=== PATIENT | male | born 1945 | race Caucasian/White ===

== ENCOUNTER → 2017-05-11 12:33 | Outpatient (CLI) | payer MEDICARE, OTHER, SELFPAY ==
[2017-05-11 14:24] LABS: Creatinine, Serum 1.09 mg/dL (0.70-1.30); EST Glomerular Filtration Rate 71 mL/min (>60); Est Glom Filt Rate - Afr Amer 86 mL/min (>60)
== END ==
PROVIDERS: Family Provider Family Medicine; PCP Family Medicine; Visit Provider Orthopaedic Surgery
DX: M51.37 Other intervertebral disc degeneration, lumbosacral region (principal); N19 Unspecified kidney failure
CPT/HCPCS: 36415; 82565

== ENCOUNTER → 2018-03-24 13:15 | Outpatient (CLI) | payer MEDICARE, OTHER, SELFPAY ==
[2018-03-24 16:22] LABS: Absolute Lymphocyte Count 2.11 X10^3/ul (0.83-4.51); Absolute Neutrophil Count 3.2 X10^3/uL (2.0-7.7); Basophil# 0.06 X10^3/uL; Eosinophil# 0.14 X10^3/uL; Eosinophils% 2.3 % (0-5); Hematocrit 43.2 % (40-54); Hemoglobin 13.9 g/dl (13.0-16.5); Lymphocyte # 2.11 X10^3/ul (4.0); Lymphocyte % 34.6 % (19-41); Mean Corp Hgb Conc 32.2 g/gl (32-36); Mean Corpuscular Hgb 32.3 pg (27.0-32.0); Mean Corpuscular Volume 100.2 fL (80-94); Mean Platelet Vol. 10.4 fl (6.2-12.0); Monocyte# 0.55 X10^3/uL; Neutrophil # 3.22 X10^3/uL (2.7-7.7); Neutrophil % 52.9 % (47-70); Platelet Count 241 K/mm3 (150-450); RBC Distribution Width CV 12.5 % (11.6-14.6); RBC Distribution Width SD 46.1 fl (35.1-43.9); Red Blood Count 4.31 M/mm3 (4.6-6.2); White Blood Count 6.1 K/mm3 (4.4-11.0)
[2018-03-24 16:26] LABS: POSITIVE COUNT NO; POSITIVE DIFFERENTIAL NO; POSITIVE MORPHOLOGY NO
[2018-03-24 16:41] LABS: ALB/GLOB Ratio 1.1 RATIO (0.9-2.4); AST(SGOT) 26 U/L (15-37); Alanine Aminotransfer ALT/SGPT 43 U/L (16-61); Albumin, Serum 4.1 g/dL (3.2-5.0); Alkaline Phosphatase 107 U/L (45-117); Anion Gap 9 (5-15); BUN 16 mg/dL (7-18); BUN/Creat Ratio 15.5 RATIO (10-20); Calcium,Total 8.9 mg/dL (8.5-10.1); Chloride 105 mmol/L (98-107); Creatinine, Serum 1.03 mg/dL (0.70-1.30); EST Glomerular Filtration Rate 76 mL/min (>60); Est Glom Filt Rate - Afr Amer 91 mL/min (>60); Globulin 3.7 g/dL (2.2-4.2); Glucose 109 mg/dL (74-106); Potassium 4.3 mmol/L (3.5-5.1); Protein, Total 7.8 g/dL (6.4-8.2); Sodium Level 140 mmol/L (136-145); T4 Free Direct 0.98 ng/dL (0.76-1.46); Thyroid Stim Hormone (TSH) 1.59 uIU/mL (0.358-3.74)
[2018-03-24 18:47] LABS: Vitamin B12 669 pg/mL (211-911)
--- OUTSIDE RECORDS SUMMARY | 2018-05-29 03:13 | XMS RPT_ITS ---
:1945 Author Organization OHIP Care Team Providers Name Role Phone Wilfred Ferrell Attending Unavailable Wilfred Ferrell Primary Care Unavailable Primit[facility] [place] Attending Unavailable Wilfred Ferrell Primary Care Unavailable PROBLEMS PROBLEMS DATE TYPE CONDITION / CODE ATTENDING STATUS SOURCE 03/24/2018 Unknown G62.9 - Wilfred Ferrell Active [facility] Polyneuropathy, Community unspecified / Hospital G62.9(ICD-10) Repository 03/24/2018 Unknown I10 - Essential Wilfred Ferrell (primary) Community hypertension / Hospital I10(ICD-10) Repository 03/24/2018 Unknown E78.5 - Wilfred Ferrell Active [facility] Hyperlipidemia, Community unspecified / Hospital E78.5(ICD-10) Repository 05/11/2017 Unknown 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, Hospital lumbosacral region / Repository M51.37(ICD-10) 05/11/2017 Unknown N19 - Unspecified Primitivo Kirkland Active [place] kidney failure / Community N19(ICD-10) Hospital Repository PROCEDURES PROCEDURES No Procedure Records FoundRESULTS RESULTS CBC W/DIFF, AUTOMATED Collected: 03/24/2018 Status: F Source: [facility] TYPE CODE TESTS RESULT OUT OF RANGE REFERENCE UNITS LAB L100.1000 4.4-11.0 K/mm3 Normal WBC 6.1 LAB L100.1200 4.6-6.2 M/mm3 Low RBC 4.31 LAB L100.1300 13.0-16.5 g/dl Normal HGB 13.9 LAB L100.1400 40-54 % Normal HCT 43.2 LAB L100.1500 80-94 fL High MCV 100.2 LAB L100.1600 27.0-32.0 pg High MCH 32.3 LAB L100.1700 32-36 g/gl Normal MCHC 32.2 LAB L100.1810 11.6-14.6 % Normal RDW CV 12.5 LAB L100.1820 35.1-43.9 fl High RDW SD 46.1 LAB L100.1900 150-450 K/mm3 Normal PLT 241 LAB L100.2000 6.2-12.0 fl Normal MPV 10.4 LAB L100.2100 47-70 % Normal NEUT% 52.9 LAB L100.2200 19-41 % Normal LY% 34.6 LAB L100.2300 0-10 % Normal MONO% 9.0 LAB L100.2400 0-5 % Normal EO% 2.3 LAB L100.2500 0-1 % Normal BASO% 1.0 LAB L100.2550 0.0-0.9 % Normal IM GRAN % 0.200 Result Comment: IG% - Immature Granulocytes (promyelocytes, myelocytes and metamyelocytes) > 1% indicates that a LEFT SHIFT is Present. LAB L100.2620 2.0-7.7 X10 3/uL Normal Absolute Neut 3.2 LAB L100.2720 0.83-4.51 X10 3/ul Normal Absolute Lymph 2.11 Performed By: #### L100.0100 #### [facility] [address] [place], [place], [address] COMPREHENSIVE METABOLIC Collected: 03/24/2018 Status: F Source: [facility] AMBROCIO 1:17 PM [facility] REPOSITORY TYPE CODE TESTS RESULT OUT OF RANGE REFERENCE UNITS LAB L501.0100 74-106 mg/dL High GLU 109 Result Comment: Fasting Glucose result from 100 to 125 mg/dL suggests IMPAIRED HOMEOSTASIS per A.D.A. criteria. Please note revised GLUCOSE reference range effective 2017. LAB L501.1000 7-18 mg/dL Normal BUN 16 LAB L501.1100 0.70-1.30 mg/dL Normal CREAT,SERUM 1.03 Result Comment: The validity of the calculated GFR AND GFRAA in patients over 70 years has not been determined. Clinical correlation is essential. LAB L501.1110 >60 mL/min Normal EST GFR 76 Result Comment: Non- GFR Calc LAB L501.1115 >60 mL/min Normal EST GFR - AA 91 Result Comment: GFR Calc LAB L501.1300 10-20 RATIO Normal BUN/CRE 15.5 LAB L501.1500 6.4-8.2 g/dL T Normal PROT 7.8 LAB L501.1800 3.2-5.0 g/dL Normal ALB 4.1 LAB L501.1950 2.2-4.2 g/dL Normal GLOB 3.7 LAB L501.2000 0.9-2.4 RATIO Normal A/G 1.1 LAB L501.2200 8.5-10.1 mg/dL CA Normal 8.9 LAB L501.4100 15-37 U/L Normal AST 26 LAB L501.4305 45-117 U/L Normal ALK P 107 LAB L501.4405 16-61 U/L Normal ALT 43 LAB L501.4600 0.20-1.00 mg/dL T Normal BILI 0.50 LAB L501.5300 136-145 mmol/L NA Normal 140 LAB L501.5600 3.5-5.1 mmol/L K Normal 4.3 LAB L501.5900 98-107 mmol/L CL Normal 105 LAB L501.6100 21.0-32.0 mmol/L Normal CO2 26.0 LAB L501.6200 5-15 Normal GAP 9 Performed By: #### L500.4050, L501.9520, L506.0400 #### [facility] [address] [place], [address] THYROID STIM HORMONE Collected: 03/24/2018 Status: F Source: [facility] (TSH) 1:17 PM [facility] REPOSITORY TYPE CODE TESTS RESULT OUT OF RANGE REFERENCE UNITS LAB L501.9520 0.358-3.74 uIU/mL Normal TSH 1.59 Performed By: #### L500.4050, L501.9520, L506.0400 #### [facility] [address] [place], [address] T4 FREE DIRECT Collected: 03/24/2018 Status: F Source: [facility] 1:17 PM [facility] REPOSITORY TYPE CODE TESTS RESULT OUT OF RANGE REFERENCE UNITS LAB L506.0400 0.76-1.46 ng/dL Normal T4 FREE 0.98 DIRECT Performed By: #### L500.4050, L501.9520, L506.0400 #### [facility] [address] [place], [address] VITAMIN B12 Collected: 03/24/2018 Status: F Source: [facility] 1:17 PM [facility] REPOSITORY TYPE CODE TESTS RESULT OUT OF RANGE REFERENCE UNITS LAB L503.0105 211-911 pg/mL Normal Vitamin B12 669 Performed By: #### L503.0105 #### [facility] [address] [place], [address] SERUM CREATININE AND Collected: 05/11/2017 Status: F Source: [facility] GFR 12:42 PM [facility] REPOSITORY TYPE CODE TESTS RESULT OUT OF RANGE REFERENCE UNITS LAB L501.1100 0.70-1.30 mg/dL Normal 1.09 CREAT,SERUM Result Comment: The validity of the calculated GFR AND GFRAA in patients over 70 years has not been determined. Clinical correlation is essential. LAB L501.1110 >60 mL/min Normal EST GFR 71 Result Comment: Non- GFR Calc LAB L501.1115 >60 mL/min Normal EST GFR - AA 86 Result Comment: GFR Calc Performed By: #### L501.1105 #### [facility] [address] [place], [address] ALLERGIES ALLERGIES DATE TYPE / CODE NAME / CODE REACTION SEVERITY SOURCE 10/24/2015 Drug codeine/F006 Nausea Unknown [facility] Allergy/4160 [id number]([facility] [address](SNOMED M) Repository CT) ENCOUNTERS ENCOUNTERS ADMIT/DISCHARGE ACCOUNT ADMITTING ENCOUNTER LOCATION SOURCE NUMBER CLASS 03/24/2018 [id number] Ambulatory [place] [facility] 1 [facility] ing:BFHLAB Repository 05/11/2017 [id number] Ambulatory [place] [place] 5 [facility] ing:MTLAB Repository PAYERS PAYERS ENCOUNTER GUARANTOR PAYER SUBSCRIBER SOURCE 03/24/2018 PRIMITIVO Forde Primary PRIMITIVO Maurer [id number] Insurance:MEDICARE SHEPPARDDOB: [id number] [address]: Number: Repository [id number] (HP) Date:2018-03-24 03/24/2018 Secondary PRIMITIVO Maurer Insurance:WPS SHEPPARDDOB: [facility] [id number] Hospital Number: Repository [id number] Date:7556-80-79[address] [address]AG: 03/24/2018 Tertiary NOT GIVENUNK [facility] Insurance:SELF PAY [facility] Number: Effective Repository Date:2018-03-24 05/11/2017 Primitivo Forde Primary Primitivo Walshoster [id number] Insurance:MEDICARE SheppardDOB: [facility] [id number] Number: Repository [id number]: 330 [id number] [phone] () Date:2017-05-11 05/11/2017 Secondary Primitivo Maurer Insurance:WPS SheppardDOB: [facility] [id number] Hospital Number: Repository [id number] Date:1118-14-59LJ [address] [place] [address]CU: 05/11/2017 Tertiary NOT GIVENUNK [facility] Insurance:SELF PAY [facility] Number: Effective Repository Date:2017-05-11
== END ==
PROVIDERS: Family Provider Family Medicine; PCP Family Medicine; Visit Provider Family Medicine
DX: I10 Essential (primary) hypertension (principal); G62.9 Polyneuropathy, unspecified; E78.5 Hyperlipidemia, unspecified
CPT/HCPCS: 36415; 80053; 82607; 84439; 84443; 85025

== ENCOUNTER → 2019-01-26 11:12 | Outpatient (CLI) | payer MEDICARE, OTHER, SELFPAY ==
--- NOTE | 2019-01-26 11:18 | RAD_ITS ---
STUDY: X-RAY - CERVICAL SPINE REASON FOR EXAM: Male, 73 years old. Neck pain. TECHNIQUE: 7 view(s) of the cervical spine were obtained. COMPARISON: None FINDINGS: Normal anterior atlantoaxial articulation. Normal odontoid process. Normal cervical lordosis. There is multi-level endplate spondylosis. Normal disc space heights. There is multilevel facet hypertrophy. There is narrowing of the left C3-C4 neuroforamina. The soft tissue structures are unremarkable. RAD/Cerv Spine Obl/Flex/Ext Comp IMPRESSION: Degenerative changes. Electronically Signed: Kiki Barnes MD at 16:53 EST Tel , Service support ,
== END ==
PROVIDERS: Family Provider Family Medicine; PCP Family Medicine; Referring Provider Nurse Practitioner Family; Visit Provider Nurse Practitioner Family
DX: M54.2 Cervicalgia (principal)
CPT/HCPCS: 72052

== ENCOUNTER → 2019-03-16 12:01 | Outpatient (CLI) | payer MEDICARE, OTHER, SELFPAY ==
[2019-03-16 16:19] LABS: Absolute Lymphocyte Count 1.86 X10^3/uL (0.83-4.51); Absolute Neutrophil Count 7.3 X10^3/uL (2.0-7.7); Basophil# 0.04 X10^3/uL; Basophil% 0.4 % (0-1); Eosinophil# 0.05 X10^3/uL; Eosinophils% 0.5 % (0-5); Hematocrit 46.7 % (40-54); Hemoglobin 14.9 g/dL (13.0-16.5); Lymphocyte # 1.86 X10^3/ul (4.0); Lymphocyte % 18.3 % (19-41); Mean Corp Hgb Conc 31.9 g/dL (32-36); Mean Corpuscular Hgb 31.8 pg (27.0-32.0); Mean Corpuscular Volume 99.6 fL (80-94); Mean Platelet Vol. 9.9 fl (6.2-12.0); Monocyte# 0.94 X10^3/uL; Monocyte% 9.2 % (0-10); NRBC Flagged by Analyzer 0 % (0-5); Neutrophil # 7.25 X10^3/uL (2.7-7.7); Neutrophil % 71.3 % (47-70); Platelet Count 217 K/mm3 (150-450); RBC Distribution Width CV 13.2 % (11.6-14.6); RBC Distribution Width SD 48.5 fl (35.1-43.9); Red Blood Count 4.69 M/mm3 (4.6-6.2); White Blood Count 10.2 K/mm3 (4.4-11.0)
[2019-03-16 16:22] LABS: Hemoglobin A1c 6.1 % (4.2-6.3)
[2019-03-16 16:28] LABS: ALB/GLOB Ratio 0.9 RATIO (0.9-2.4); AST(SGOT) 30 U/L (15-37); Alanine Aminotransfer ALT/SGPT 46 U/L (16-61); Albumin, Serum 3.7 g/dL (3.2-5.0); Alkaline Phosphatase 114 U/L (45-117); Anion Gap 4 (5-15); BUN 19 mg/dL (7-18); BUN/Creat Ratio 14.5 RATIO (10-20); Calcium,Total 8.8 mg/dL (8.5-10.1); Chloride 105 mmol/L (98-107); Creatinine, Serum 1.31 mg/dL (0.70-1.30); EST Glomerular Filtration Rate 57 mL/min (>60); Est Glom Filt Rate - Afr Amer 69 mL/min (>60); Globulin 4.3 g/dL (2.2-4.2); Glucose 159 mg/dL (74-106); PSA,Total - Annual Screen 0.43 ng/mL (0.00-4.00); Potassium 4.4 mmol/L (3.5-5.1); Sodium Level 135 mmol/L (136-145); Thyroid Stim Hormone (TSH) 1.27 uIU/mL (0.358-3.74)
== END ==
PROVIDERS: Family Provider Family Medicine; PCP Family Medicine; Visit Provider Family Medicine
DX: R63.4 Abnormal weight loss (principal); I10 Essential (primary) hypertension; R73.01 Impaired fasting glucose; Z12.5 Encounter for screening for malignant neoplasm of prostate
CPT/HCPCS: 36415; 80053; 83036; 84153; 84439; 84443; 85025; G0103

== ENCOUNTER → 2019-03-28 13:14 | Outpatient (CLI) | payer MEDICARE, OTHER, SELFPAY ==
--- NOTE | 2019-03-28 13:18 | CT_ITS ---
STUDY: CT CHEST WITHOUT CONTRAST REASON FOR EXAM: Male, 73 years old. NODULE FOLLOW UP RADIATION DOSAGE (If Supplied By Facility): CTDIvol = ( 16.83 ) mGy, DLP = ( 602.84 ) mGycm TECHNIQUE: Transaxial imaging was performed without the administration of intravenous contrast material. Individualized dose optimization techniques were used for this CT. COMPARISON: 10/20/2013 FINDINGS: Mild bilateral apical scarring. No noncalcified nodule or mass. Some right-sided pleural calcifications. Normal heart and pericardium. There are calcifications of the coronary arteries. Normal mediastinum. Normal hilar regions. Normal unenhanced pulmonary arteries. Normal aorta arch and descending thoracic aorta. Normal osseous structures. There is no demonstrated abnormality of the visualized upper abdomen. CT/Chest without Contrast IMPRESSION: No pulmonary nodule or mass. Right-sided pleural calcification. Electronically Signed: Tyler Vieira MD at 16:23 EST Tel , Service support ,
== END ==
PROVIDERS: Family Provider Family Medicine; PCP Family Medicine; Referring Provider Family Medicine; Visit Provider Family Medicine
DX: R63.4 Abnormal weight loss (principal); I10 Essential (primary) hypertension; R91.1 Solitary pulmonary nodule
CPT/HCPCS: 71250

== ENCOUNTER 2019-09-18 19:55 | Emergency (ER) | payer MEDICARE, OTHER, SELFPAY ==
[2019-09-18 19:57] VITALS: BP 119/74; PULSE 82; RESP 16; TEMP 36.9; O2SAT 95; BMI 32.3
[2019-09-18] MEDS: HYDROmorphone 1 MG/ML Syringe IV (20:48)
[2019-09-18] MEDS: Ondansetron 4 MG/2 ML Vial IV (20:48)
[2019-09-18] MEDS: diazePAM 2 MG Tablet 4 MG PO (20:51)
--- NOTE | 2019-09-18 21:48 | ED.VISSUMM ---
- ER Visit Summary Date of Service: 09/18/19 Chief Complaint: [Back pain] History of Present Illness: The patient is a 74 M [presents to the emergency department complaint of back pain that has had for about 2 to 3 days. Patient states that he was working on a deck applying some lattice to it and twisted awkwardly over the weekend. He had some mild discomfort for which she took Advil but really get much relief. Today he sat down and when he try to stand up had more severe pain and had a hard time standing and walking so he called EMS to bring him in. Patient has history of chronic back pain. He sees pain management and gets injections in his back about once a year. Patient actually saw his painter foreman nurse to try to make an appointment to get in and get injections today. He denies any change in bowel or bladder function. He denies weakness in extremities. Patient states that intermittently when the pain severely will shoot down his left leg to about the knee. Has had prior back surgery had a decompression of L4-5 2004.] Physical Examination: [HEENT-PERRLA, EOMI. Cranial nerves II through XII grossly intact. TMs clear. Mucous membranes moist. No adenopathy. Cardiovascular-regular rate and rhythm without murmur or ectopy Lungs-clear to auscultation, chest wall stable without crepitus or subcu emphysema Abdomen-normoactive bowel sounds, soft, nontender, no rebound or rigidity, no peritoneal signs. Back exam-patient has diffuse tenderness over lumbar spine and lumbar paraspinal musculature. Patient has a positive straight leg raise with the left leg at about 20 degrees. Deep tendon reflexes are plus 1 out of 4 bilaterally at the patella and Achilles. Patient has normal 5 extension bilaterally. Patient has normal sensation to light touch. Extremities-intact ?4, normal range of motion, normal pulses, atraumatic] Test Results: [None indicated] Emergency Department Course and Treatment: [Patient received 100 mcg of fentanyl by EMS prior to arrival. He continued to complain of severe pain. He was given Dilaudid 1 mg IV and Valium 4 mg p.o. After treatment he was observed in the department and he felt significantly improved. Patient was able to stand and walk and at this point is requesting to be discharged to home.] Treatment Plan: [Patient will be given a prescription for Alkol and Valium. Patient advised to follow-up with his painter foreman. Advised to return if worsening pain, weakness extremities, change in bowel or bladder function, or condition should worsen anyway.] Disposition: [Discharged home in stable condition] Impression: [Lumbar strain] This note was generated with [employer] dictation software. It may contain incorrect words, spelling, and punctuation that were not noted in review of the chart prior to signing ED Disposition - Plan for ED Patient: Referrals: Wilfred Ferrell MD [Primary Care Provider] -
[2019-09-18 21:50] VITALS: BP 118/72; PULSE 80; RESP 16; O2SAT 98
--- NOTE | 2019-09-18 21:51 | ED.DEP ---
ED Disposition - Plan for ED Patient: Instructions: ED LUMBAR SPRAIN/STRAIN Prescriptions: Hydrocodone Bitart/Apap 5-325 [[place] 5MG-325MG] 1 tab PO Q4H PRN PRN 2 Days #20 tab PRN Reason: Pain Prescription Printed Diazepam [Valium] 5 mg PO Q8 PRN #10 tab PRN Reason: Muscle Spasm Prescription Printed Referrals: Wilfred Ferrell MD [Primary Care Provider] - 3-5 Days Additional Instructions: See your pain management doctor
[2019-09-18] MEDS: HYDROmorphone 1 MG/ML Syringe IM (22:30)
== END 2019-09-18 22:44 | disposition home or self-care (01) ==
PROVIDERS: Emergency Provider Emergency Medicine; PCP Family Medicine
DX: S39.012A Strain of muscle, fascia and tendon of lower back, initial encounter (principal); M79.605 Pain in left leg; X50.1XXA Overexertion from prolonged static or awkward postures, initial encounter; Y93.9 Activity, unspecified; Y92.9 Unspecified place or not applicable; Y99.9 Unspecified external cause status; M54.9 Dorsalgia, unspecified; G89.29 Other chronic pain; I25.10 Atherosclerotic heart disease of native coronary artery without angina pectoris; I10 Essential (primary) hypertension; Z72.0 Tobacco use; Z79.82 Long term (current) use of aspirin; Z79.899 Other long term (current) drug therapy
CPT/HCPCS: 96372; 96374; 96375; 99284; A4216; J2405

== ENCOUNTER → 2019-10-09 10:39 | Outpatient (CLI) | payer MEDICARE, OTHER, SELFPAY ==
[2019-09-18 19:57] VITALS: BMI 32.3
[2019-10-09 12:58] LABS: BUN 26 mg/dL (7-18); Creatinine, Serum 1.35 mg/dL (0.70-1.30); EST Glomerular Filtration Rate 55 mL/min (>60); Est Glom Filt Rate - Afr Amer 67 mL/min (>60)
== END ==
PROVIDERS: PCP Family Medicine; Referring Provider Nurse Practitioner Family; Visit Provider Nurse Practitioner Family
DX: Z01.812 Encounter for preprocedural laboratory examination (principal)
CPT/HCPCS: 36415; 82565; 84520

== ENCOUNTER → 2019-10-15 09:23 | Outpatient (CLI) | payer MEDICARE, OTHER, SELFPAY ==
[2019-09-18 19:57] VITALS: BMI 32.3
--- NOTE | 2019-10-15 09:39 | MRI_ITS ---
STUDY: MRI LUMBAR SPINE WITHOUT CONTRAST REASON FOR EXAM: Male, 74 years old. pain lumbar, left leg x 6 months, prev surgery 2003, now pain injections not helping TECHNIQUE: Standardized fat and water weighted pulse sequences were obtained in the sagittal and axial planes. COMPARISON: X-ray dated 04/27/2016 FINDINGS: Lumbar straightening. No significant scoliosis. Conus medullaris terminates normally at the L1 level. No acute fracture. No acute dislocation. No acute bone destruction. Small anterior osteophytes. Paraspinal muscle atrophy. Normal aorta. Normal retroperitoneum. Sacrum intact. T12-L1: Normal endplates. Shallow disc bulge. Normal bilateral facet joints. Normal central canal and bilateral lateral recesses. Normal bilateral intervertebral neural foramina. L1-2: Normal endplates. Disc bulge with mild central canal narrowing. Facet joint arthrosis. Normal bilateral lateral recesses. Normal bilateral intervertebral neural foramina. L2-3: Normal endplates. Disc bulge with mild/moderate central canal narrowing. Facet joint arthrosis. Lateral recess narrowing without impingement. Normal bilateral intervertebral neural foramina. L3-4: Mild endplate spondylosis. Mild disc desiccation. Facet joint arthrosis. Normal central canal and bilateral lateral recesses. Normal bilateral intervertebral neural foramina. L4-5: Moderate endplate spondylosis. Shallow disc bulge with annular fissure. Facet joint arthrosis. Minimal lateral recess narrowing. Normal central canal. Bilateral neural foraminal narrowing with contact of the right exiting nerve root. L5-S1: Moderate endplate spondylosis. Shallow disc bulge. Facet joint arthrosis. Normal central canal and bilateral lateral recesses. Bilateral neural foraminal narrowing with contact of the exiting nerve roots. Right hemilaminotomy. 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
== END ==
PROVIDERS: PCP Family Medicine; Referring Provider Anesthesiology Pain Medicine; Visit Provider Anesthesiology Pain Medicine
DX: Z01.812 Encounter for preprocedural laboratory examination (principal); M46.96 Unspecified inflammatory spondylopathy, lumbar region; M51.37 Other intervertebral disc degeneration, lumbosacral region; M96.1 Postlaminectomy syndrome, not elsewhere classified; M54.17 Radiculopathy, lumbosacral region; M47.817 Spondylosis without myelopathy or radiculopathy, lumbosacral region; M48.07 Spinal stenosis, lumbosacral region
CPT/HCPCS: 72148

== ENCOUNTER → 2020-02-08 14:05 | Outpatient (CLI) | payer MEDICARE, OTHER, SELFPAY ==
[2020-02-08 17:41] LABS: Absolute Lymphocyte Count 1.83 X10^3/uL (0.83-4.51); Absolute Neutrophil Count 2.9 X10^3/uL (2.0-7.7); Basophil# 0.04 X10^3/uL; Basophil% 0.7 % (0-1); Eosinophil# 0.13 X10^3/uL; Eosinophils% 2.4 % (0-5); Hematocrit 44.3 % (40-54); Hemoglobin 14.2 g/dL (13.0-16.5); Lymphocyte # 1.83 X10^3/ul (4.0); Lymphocyte % 33.9 % (19-41); Mean Corp Hgb Conc 32.1 g/dL (32-36); Mean Corpuscular Hgb 32.4 pg (27.0-32.0); Mean Corpuscular Volume 101.1 fL (80-94); Mean Platelet Vol. 10.4 fl (6.2-12.0); Monocyte# 0.49 X10^3/uL; Monocyte% 9.1 % (0-10); NRBC Flagged by Analyzer 0 % (0-5); Neutrophil % 53.7 % (47-70); Platelet Count 255 K/mm3 (150-450); RBC Distribution Width CV 11.6 % (11.6-14.6); RBC Distribution Width SD 43.7 fl (35.1-43.9); Red Blood Count 4.38 M/mm3 (4.6-6.2); White Blood Count 5.4 K/mm3 (4.4-11.0)
[2020-02-08 18:22] LABS: ALB/GLOB Ratio 1.1 RATIO (0.9-2.4); AST(SGOT) 25 U/L (15-37); Alanine Aminotransfer ALT/SGPT 44 U/L (16-61); Albumin, Serum 4.1 g/dL (3.2-5.0); Alkaline Phosphatase 116 U/L (45-117); Anion Gap 8 (5-15); BUN 18 mg/dL (7-18); BUN/Creat Ratio 16.1 RATIO (10-20); Calcium,Total 8.8 mg/dL (8.5-10.1); Chloride 107 mmol/L (98-107); Creatinine, Serum 1.12 mg/dL (0.70-1.30); EST Glomerular Filtration Rate 68 mL/min (>60); Est Glom Filt Rate - Afr Amer 83 mL/min (>60); Globulin 3.6 g/dL (2.2-4.2); Glucose 92 mg/dL (74-106); Potassium 4.3 mmol/L (3.5-5.1); Protein, Total 7.7 g/dL (6.4-8.2); Sodium Level 140 mmol/L (136-145); Thyroid Stim Hormone (TSH) 1.28 uIU/mL (0.358-3.74)
== END ==
PROVIDERS: PCP Family Medicine; Visit Provider Family Medicine
DX: I12.9 Hypertensive chronic kidney disease with stage 1 through stage 4 chronic kidney disease, or unspecified chronic kidney disease (principal); N18.30 Chronic kidney disease, stage 3 unspecified; E78.5 Hyperlipidemia, unspecified
CPT/HCPCS: 36415; 80053; 84443; 85025

== ENCOUNTER → 2020-08-18 13:54 | Outpatient (CLI) | payer MEDICARE, OTHER, SELFPAY ==
--- NOTE | 2020-08-18 14:01 | RAD_ITS ---
HISTORY: COUGH,SPUTUM,SOB EXAM: XR Chest 2 Views: COMPARISON: September 30, 2013 chest x-ray, and March 28, 2019 CT scan of the chest. FINDINGS: # of images incl. paperwork: 3 Right lower lung nodular disease is slightly more medial on today's study than on the previous study. Comparison to the chest CT from March 28 proves that this is a anterior pleural plaque. Lungs are clear. Heart is not enlarged. No acute osseous pathology perceived. Pulmonary vascularity is distinct. No effusions. RAD/Chest PA and Lateral IMPRESSION: No acute disease.. at 0700 Reported and signed by: Luis Alfredo Burr MD Electronically Signed: Luis Alfredo Burr MD at 6:59 EDT Tel , Service support ,
[2020-08-18 15:48] LABS: Absolute Neutrophil Count 3.6 X10^3/uL (2.0-7.7); Basophil# 0.06 X10^3/uL; Basophil% 0.9 % (0-1); Eosinophil# 0.14 X10^3/uL; Eosinophils% 2.2 % (0-5); Hematocrit 44.4 % (40-54); Hemoglobin 14.7 g/dL (13.0-16.5); Lymphocyte % 31.4 % (19-41); Mean Corp Hgb Conc 33.1 g/dL (32-36); Mean Corpuscular Hgb 32.8 pg (27.0-32.0); Mean Corpuscular Volume 99.1 fL (80-94); Mean Platelet Vol. 10.2 fl (6.2-12.0); Monocyte# 0.57 X10^3/uL; NRBC Flagged by Analyzer 0 % (0-5); Neutrophil # 3.57 X10^3/uL (2.7-7.7); Neutrophil % 56.2 % (47-70); Platelet Count 283 K/mm3 (150-450); RBC Distribution Width CV 12.6 % (11.6-14.6); RBC Distribution Width SD 46.1 fl (35.1-43.9); Red Blood Count 4.48 M/mm3 (4.6-6.2); White Blood Count 6.4 K/mm3 (4.4-11.0)
[2020-08-18 16:18] LABS: Hemoglobin A1c 5.8 % (3.8-5.6)
[2020-08-18 17:00] LABS: ALB/GLOB Ratio 1.2 RATIO (0.9-2.4); AST(SGOT) 33 U/L (15-37); Alanine Aminotransfer ALT/SGPT 36 U/L (16-61); Albumin, Serum 4.2 g/dL (3.2-5.0); Alkaline Phosphatase 113 U/L (45-117); Anion Gap 7 (5-15); BUN 18 mg/dL (7-18); Calcium,Total 9.4 mg/dL (8.5-10.1); Chloride 104 mmol/L (98-107); EST Glomerular Filtration Rate 63 mL/min (>60); Est Glom Filt Rate - Afr Amer 76 mL/min (>60); Globulin 3.5 g/dL (2.2-4.2); Glucose 105 mg/dL (74-106); Potassium 4.5 mmol/L (3.5-5.1); Protein, Total 7.7 g/dL (6.4-8.2); Sodium Level 138 mmol/L (136-145)
== END ==
PROVIDERS: PCP Family Medicine; Referring Provider Family Medicine; Visit Provider Family Medicine
DX: I10 Essential (primary) hypertension (principal); E78.5 Hyperlipidemia, unspecified; R73.01 Impaired fasting glucose; R06.00 Dyspnea, unspecified; Z72.0 Tobacco use
CPT/HCPCS: 36415; 71046; 80053; 83036; 84443; 85025

== ENCOUNTER → 2020-09-02 12:41 | Outpatient (CLI) | payer MEDICARE, OTHER, SELFPAY ==
[2020-09-02 12:12] VITALS: BMI 32.0
--- NOTE | 2020-09-02 12:48 | CT_ITS ---
STUDY: LOW DOSE CT LUNG CANCER SCREENING REASON FOR EXAM: Male, 75 years old. Lung cancer screening -- 20 pack year history; asymptomatic, current smoker RADIATION DOSAGE (If Supplied By Facility): CTDIvol = ( 3.18 ) mGy, DLP = ( 116.76 ) mGycm TECHNIQUE: No contrast was administered. Low dose technique was utilized (average mAS-38 and kVp 120). 1.25 mm axial source images with a slice interval of 1.25-mm were reconstructed in lung windows. 2.5 mm axial source images with a slice interval of 2.5-mm were reconstructed in lung windows. 5.0 mm axial source images with a slice interval of 5.0-mm were reconstructed in soft tissue windows. Nodule measured using lung windows on PACS and/or independent workstation with automated measurement of minimum and maximum diameter. Nodule measurement reported as average diameter rounded to the nearest whole number. Growth is defined as an increase ins size of greater than 1.5 mm. COMPARISON: Comparison is made with prior study dated 03/28/2019. NODULES: No suspicious nodules are seen. Emphysema: Stable scarring at the lung apices bilaterally. Stable calcified right sided pleural plaques. Endobronchial lesion: None Aorta: Mild atherosclerotic calcification of the aortic arch. Coronary arteries: Mild coronary artery calcification. Mediastinal nodes: Small mediastinal lymph nodes. Other chest and abdominal findings: CT/Low Dose CT Lung Screening IMPRESSION: Lung-RADS category 2 - Continue annual screening with LDCT in 12 months. IMPORTANT NOTES FOR USE: ACR Lung-RADS Version 1.1 Assessment Categories Release Date: 2018 Category: Coded 0-4 bases on nodule(s) with highest degree of suspicion. Negative screen is defined as categories 1 and 2; a positive screen is defined as categories 3 and 4. Category 3 and 4A nodules that are unchanged on interval CT should be coded as category 2, and individuals returned to screening in 12 months. Category 4X: Category 3 or 4 nodules with additional imaging findings that increase the suspicion of lung cancer, such as spiculation, GGN that doubles in size in 1 year, enlarged lymph notes, etc. Category Modifiers: S (significant finding unrelated to lung cancer) Electronically Signed: Art Manning MD at 13:32 EDT , Service support ,
== END ==
PROVIDERS: PCP Family Medicine; Referring Provider Nurse Practitioner Family; Visit Provider Nurse Practitioner Family
DX: Z12.2 Encounter for screening for malignant neoplasm of respiratory organs (principal); Z87.891 Personal history of nicotine dependence
CPT/HCPCS: 71271

== ENCOUNTER 2021-04-22 17:35 | Outpatient (CLI) | payer MEDICARE, OTHER, SELFPAY ==
--- NOTE | 2021-04-22 17:41 | CT_ITS ---
EXAM: CT NECK WITH INTRAVENOUS CONTRAST : 1945 CLINICAL INDICATION: RIGHT LYMPHADENOPATHY OF UNCERTAIN CAUSE TECHNIQUE: Helically acquired images were obtained of the neck with intravenous contrast. This CT exam was performed using one or more of the following dose reduction techniques: automated exposure control, adjustment of the mA and/or kV according to patient size, and/or use of iterative reconstruction technique. This report was created using [employer] report generation technology. CONTRAST: IV 100mL Isovue-300 COMPARISON: Chest CT March 28, 2019 FINDINGS: NASOPHARYNX: Unremarkable. SUPRAHYOID NECK: Unremarkable. Oropharynx, oral cavity, parapharyngeal space and retropharyngeal space are unremarkable. INFRAHYOID NECK: Unremarkable. The larynx, hypopharynx and supraglottis are unremarkable. SUBMANDIBULAR/PAROTID GLANDS: Unremarkable. Glands are normal in size. THYROID: Unremarkable. No enlarged or calcified nodules. BONES/JOINTS: No acute fracture. SOFT TISSUES: Unremarkable. VASCULATURE: No acute findings. LYMPH NODES: Unremarkable. No lymphadenopathy. LUNG APICES: Stable postinflammatory changes at the lung apices. Right apical bleb formation is stable. CT/Soft Tissue Neck WITH Contrast IMPRESSION: No evidence of cervical lymphadenopathy. Individualized dose optimization techniques were used for this CT. at 0817 Reported and signed by: Varinder Holt MD Electronically Signed: Varinder Holt MD at 8:15 EST Reading Location ID and State: [facility] [place] Tel , Service support ,
[2021-04-22 17:55] LABS: CREATININE FINGERSTICK 0.8 mg/dL (0.70-1.30); EGFR FINGERSTICK > 60.0000 mL/min (>60)
== END 2021-04-22 23:59 | disposition home or self-care (01) ==
LOC: CT 17:36
PROVIDERS: PCP Family Medicine; Visit Provider Family Medicine
DX: R59.0 Localized enlarged lymph nodes (principal)
CPT/HCPCS: 70491; Q9967

== ENCOUNTER 2021-05-20 12:16 | Outpatient (CLI) | payer MEDICARE, OTHER, SELFPAY ==
[2021-05-20 15:52] LABS: ALB/GLOB Ratio 1.1 RATIO (0.9-2.4); AST(SGOT) 32 U/L (15-37); Alanine Aminotransfer ALT/SGPT 68 U/L (16-61); Albumin, Serum 3.7 g/dL (3.2-5.0); Alkaline Phosphatase 91 U/L (45-117); Anion Gap 6 (5-15); BUN 21 mg/dL (7-18); BUN/Creat Ratio 19.8 RATIO (10-20); CPK Total, Creatine Kinase 32 U/L (39-308); CRP < 2.90 mg/L (0.0-3.0); Calcium,Total 8.6 mg/dL (8.5-10.1); Chloride 105 mmol/L (98-107); Creatinine, Serum 1.06 mg/dL (0.70-1.30); EST Glomerular Filtration Rate 72 mL/min (>60); Est Glom Filt Rate - Afr Amer 88 mL/min (>60); Globulin 3.3 g/dL (2.2-4.2); Glucose 94 mg/dL (74-106); Potassium 3.7 mmol/L (3.5-5.1); Rheumatoid Factor < 10.0 IU/mL (<15); Sodium Level 140 mmol/L (136-145); T4 Free Direct 1.18 ng/dL (0.76-1.46); Thyroid Stim Hormone (TSH) 1.08 uIU/mL (0.358-3.74)
[2021-05-20 16:50] LABS: Erythrocyte Sedimentation Rate 9 mm/hr (0-20)
[2021-05-20 16:52] LABS: Absolute Lymphocyte Count 3.04 X10^3/uL (0.83-4.51); Absolute Neutrophil Count 5.9 X10^3/uL (2.0-7.7); Basophil# 0.05 X10^3/uL; Basophil% 0.5 % (0-1); Eosinophil# 0.07 X10^3/uL; Eosinophils% 0.7 % (0-5); Hematocrit 41.7 % (40-54); Hemoglobin 14.4 g/dL (13.0-16.5); Lymphocyte # 3.04 X10^3/ul (0.83-4.51); Lymphocyte % 30.8 % (19-41); Mean Corp Hgb Conc 34.5 g/dL (32-36); Mean Corpuscular Volume 101.2 fL (80-94); Mean Platelet Vol. 10.4 fl (6.2-12.0); Monocyte% 7.1 % (0-10); NRBC Flagged by Analyzer 0 % (0-5); Neutrophil # 5.89 X10^3/uL (2.7-7.7); Neutrophil % 59.8 % (47-70); Platelet Count 297 K/mm3 (150-450); RBC Distribution Width CV 12.8 % (11.6-14.6); RBC Distribution Width SD 47.6 fl (35.1-43.9); Red Blood Count 4.12 M/mm3 (4.6-6.2); White Blood Count 9.9 K/mm3 (4.4-11.0)
[2021-05-23 19:24] LABS: CCP IgG Antibodies 10 units (0-19)
[2021-05-24 16:07] LABS: Anti-Nuclear Antibody Test Negative (.)
== END 2021-05-20 23:59 | disposition home or self-care (01) ==
LOC: MTLAB 12:17
PROVIDERS: PCP Family Medicine; Referring Provider Family Medicine; Visit Provider Family Medicine
DX: M33.20 Polymyositis, organ involvement unspecified (principal); I10 Essential (primary) hypertension; M13.0 Polyarthritis, unspecified
CPT/HCPCS: 36415; 80053; 82550; 84439; 84443; 85025; 85652; 86038; 86140; 86200; 86431

== ENCOUNTER 2021-06-04 13:32 | Outpatient (CLI) | payer MEDICARE, OTHER, SELFPAY ==
--- NOTE | 2021-06-04 13:36 | RAD_ITS ---
STUDY: X-RAY - THORACIC SPINE REASON FOR EXAM: Male, 76 years old. Pain TECHNIQUE: 3 view(s) of the thoracic spine were obtained. COMPARISON: None. FINDINGS: Normal kyphosis of the thoracic spine. There is no substantial scoliosis. There is multilevel endplate spondylosis of the thoracic vertebrae. There is multilevel disc space narrowing of the thoracic spine. The soft tissue structures are unremarkable. RAD/Thoracic Spine 3 Views IMPRESSION: There are degenerative changes as noted above. Electronically Signed: Erich Alves MD at 18:45 EDT ,
== END 2021-06-04 23:59 | disposition home or self-care (01) ==
LOC: MTRAD 13:34
PROVIDERS: PCP Family Medicine; Referring Provider Nurse Practitioner Family; Visit Provider Nurse Practitioner Family
DX: M54.14 Radiculopathy, thoracic region (principal)
CPT/HCPCS: 72072

== ENCOUNTER → 2021-10-13 | Outpatient (CLI) | payer MEDICARE, OTHER, SELFPAY ==
--- NOTE | 2021-10-13 12:34 | CT_ITS ---
STUDY: LOW DOSE CT LUNG CANCER SCREENING REASON FOR EXAM: Male, 76 years old. Lung cancer screening -- and gt;20 pk yr hx;current smoker;asymptomatic RADIATION DOSAGE (If Supplied By Facility): CTDIvol = ( 3.18 ) mGy, DLP = ( 111.19 ) mGycm TECHNIQUE: No contrast was administered. Low dose technique was utilized (average mAS-38 and kVp 120). 1.25 mm axial source images with a slice interval of 1.25-mm were reconstructed in lung windows. 2.5 mm axial source images with a slice interval of 2.5-mm were reconstructed in lung windows. 5.0 mm axial source images with a slice interval of 5.0-mm were reconstructed in soft tissue windows. COMPARISON: Comparison is made with prior study dated 09/02/2020. NODULES: No suspicious nodules are seen. Emphysema: Stable scarring at the lung apices. Stable bullous formation in the anterior medial aspect of the right upper lobe. Stable calcified right pleural plaques. Endobronchial lesion: Unremarkable Aorta: Atherosclerotic calcific plaques of the aortic arch. CORONARY ARTERIES: Coronary artery calcification is seen. Heart: Unremarkable Pulmonary artery: Unremarkable Mediastinal nodes: Small mediastinal lymph nodes. Other chest and abdominal findings: Degenerative changes of the thoracic vertebrae. CT/Low Dose CT Lung Screening IMPRESSION: Lung-RADS category 2 - Continue annual screening with LDCT in 12 months. IMPORTANT NOTES FOR USE: ACR Lung-RADS Version 1.1 Assessment Categories Release Date: 2018 Category: Coded 0-4 bases on nodule(s) with highest degree of suspicion. Negative screen is defined as categories 1 and 2; a positive screen is defined as categories 3 and 4. Category 3 and 4A nodules that are unchanged on interval CT should be coded as category 2, and individuals returned to screening in 12 months. Category 4X: Category 3 or 4 nodules with additional imaging findings that increase the suspicion of lung cancer, such as spiculation, GGN that doubles in size in 1 year, enlarged lymph notes, etc. Category Modifiers: S (significant finding unrelated to lung cancer) Electronically Signed: Art Manning MD at 13:01 EDT ,
== END | disposition home or self-care (01) ==
LOC: CT 12:32
PROVIDERS: PCP Family Medicine; Referring Provider Nurse Practitioner Family; Visit Provider Nurse Practitioner Family
DX: Z12.2 Encounter for screening for malignant neoplasm of respiratory organs (principal); Z87.891 Personal history of nicotine dependence
CPT/HCPCS: 71271

== ENCOUNTER → 2021-10-30 | Outpatient (CLI) | payer MEDICARE, OTHER, SELFPAY ==
--- NOTE | 2021-10-30 10:59 | RAD_ITS ---
STUDY: X-RAY - RIGHT KNEE REASON FOR EXAM: Male, 76 years old. Knee pain. TECHNIQUE: 4 view(s) of the knee. COMPARISON: None. FINDINGS: Osteopenia. Slight lateral tilt and subluxation of the patella. Mild tricompartmental arthrosis without osteophytes. The soft tissue structures are unremarkable. RAD/Knee 4 or More Views IMPRESSION: Osteopenia with mild tricompartmental arthrosis. No acute abnormality, chondrocalcinosis or erosive changes. Electronically Signed: Presley Harley, at 11:39 EDT ,
== END | disposition home or self-care (01) ==
LOC: MTRAD 10:58
PROVIDERS: PCP Family Medicine; Referring Provider Nurse Practitioner Family; Visit Provider Nurse Practitioner Family
DX: M25.561 Pain in right knee (principal)
CPT/HCPCS: 73564

== ENCOUNTER → 2022-03-15 | Outpatient (CLI) | payer MEDICARE, OTHER, SELFPAY ==
[2022-03-15 12:48] LABS: Hemoglobin A1c 5.8 % (3.8-5.6)
[2022-03-15 12:53] LABS: Cholesterol 163 mg/dL (200); Glucose 114 mg/dL (74-106); High Density Lipoprotein 45 mg/dL; Triglycerides 158 mg/dL; Very Low Density Lipoprotein 32 mg/dL (5-40)
== END | disposition home or self-care (01) ==
PROVIDERS: PCP Family Medicine; Referring Provider Family Medicine; Visit Provider Family Medicine
DX: E78.5 Hyperlipidemia, unspecified (principal); R73.01 Impaired fasting glucose
CPT/HCPCS: 36415; 80061; 82947; 83036

== ENCOUNTER → 2023-02-08 | Outpatient (CLI) | payer MEDICARE, OTHER, SELFPAY ==
--- NOTE | 2023-02-08 12:55 | CT_ITS ---
STUDY: LOW DOSE CT LUNG CANCER SCREENING REASON FOR EXAM: Male, 77 years old. Lung cancer screening -- and gt;20 pk yr hx;asymptomatic; current smoker RADIATION DOSAGE (If Supplied By Facility): CTDIvol = ( 4.02 ) mGy, DLP = ( 145.97 ) mGycm TECHNIQUE: No contrast was administered. Low dose technique was utilized (average mAS-38 and kVp 120). 1.25 mm axial source images with a slice interval of 1.25-mm were reconstructed in lung windows. 2.5 mm axial source images with a slice interval of 2.5-mm were reconstructed in lung windows. 5.0 mm axial source images with a slice interval of 5.0-mm were reconstructed in soft tissue windows. COMPARISON: Comparison is made with prior study October 13, 2021. NODULES: No suspicious nodules are seen. Emphysema: Mild emphysematous changes. Stable bullous formation in the anterior medial aspect of the right upper lobe. Stable calcified anterior right pleural plaques. Endobronchial lesion: None Aorta: Atherosclerotic plaques of the aortic arch. CORONARY ARTERIES: Coronary artery calcification is seen. Heart: Unremarkable Pulmonary artery: Unremarkable Mediastinal nodes: Small mediastinal lymph nodes. Other chest and abdominal findings: CT/Low Dose CT Lung Screening IMPRESSION: Lung-RADS category 2 - Continue annual screening with LDCT in 12 months. IMPORTANT NOTES FOR USE: ACR Lung-RADS Version 1.1 Assessment Categories Release Date: 2018 Category: Coded 0-4 bases on nodule(s) with highest degree of suspicion. Negative screen is defined as categories 1 and 2; a positive screen is defined as categories 3 and 4. Category 3 and 4A nodules that are unchanged on interval CT should be coded as category 2, and individuals returned to screening in 12 months. Category 4X: Category 3 or 4 nodules with additional imaging findings that increase the suspicion of lung cancer, such as spiculation, GGN that doubles in size in 1 year, enlarged lymph notes, etc. Category Modifiers: S (significant finding unrelated to lung cancer) Electronically Signed: Art Manning MD at 13:32 EST ,
== END | disposition home or self-care (01) ==
LOC: CT 12:55
PROVIDERS: PCP Nurse Practitioner Family; Referring Provider Nurse Practitioner Family; Visit Provider Nurse Practitioner Family
DX: Z87.891 Personal history of nicotine dependence (principal)
CPT/HCPCS: 71271

== ENCOUNTER → 2023-04-27 | Outpatient (CLI) | payer MEDICARE, OTHER, SELFPAY ==
--- NOTE | 2023-04-27 14:25 | RAD_ITS ---
STUDY: X-RAY CHEST REASON FOR EXAM: Male, 78 years old. Cough -- STAT TECHNIQUE: PA and lateral views of the chest. COMPARISON: Comparison is made with prior study dated August 18, 2020. FINDINGS: There is hyperinflation of the lungs consistent with chronic obstructive lung disease (COPD). Stable 2.9 cm x 1.7 cm density in the right lower lobe. This was demonstrated to be a calcified pleural plaque on prior CT scan. There is no demonstrated pleural abnormality. Normal size heart. Normal mediastinum and feder[place]. Normal visualized pulmonary arteries. Normal visualized aortic arch and descending thoracic aorta. There are diffuse degenerative changes of the visualized thoracic spine. Normal visualized ribs, clavicles, and shoulders. There is no demonstrated abnormality of the visualized soft tissue structures of the upper abdomen. RAD/Chest PA and Lateral IMPRESSION: Hyperinflation and COPD. Stable calcified pleural plaques on the right side. Electronically Signed: Art Manning MD at 15:34 EST ,
--- OUTSIDE RECORDS SUMMARY | 2023-04-27 18:36 | XMS RPT_ITS | CCD ---
Author Name Unknown Address [address] [place] [address] Organization [facility] Care Team Providers Care [place] Bailiff Name Role Phone Mariaelena CONLEY, Zina Zuniga Primary Care Provider TYLER BAIRES Attending Unavailable ZINA FERRELL Primary Care Unavailable TYLER BAIRES Referring Unavailable ZINA FERRELL Primary Care Unavailable ZINA FERRELL Primary Care Unavailable TYLER BAIRES Referring Unavailable TYLER BAIRES Attending Unavailable ZINA FERRELL Primary Care Unavailable Mariaelena CONLEY, Zina Zuniga Primary Care Provider Allergies Allergy Classification Reported Allergen(s) Allergy Type Date of Onset Reaction(s) Facility (5 sources) Codeine; Translations: [CODEINE] Drug Allergy 7 Mental Status Change [facility] Work Phone: (5 sources) Bees; Translations: [BEES] Propensity to adverse reactions 6 [facility] Work Phone: Medications Current Medications Medication Drug Class(es) Dates Sig (Normalized) Sig (Original) enteric contrast (will be provided with radiology test) (1 source) Start: 12-24-2021 End: 12-24-2021 take 1 dose by mouth once, then take 1 dose by mouth once enteric contrast (will be provided with radiology test) Take 1 Each by mouth one time only for [address] ABD/PEL WO Routine order Administer, As Directed One Time Only, via Oral, Rectal, both Oral and Rectal, Enteric Tube, Stoma or Indwelling Catheter, Enteric Contrast as designated per enteric contrast guidelines 1 Each 0 12/24/2021 12/24/2021 Active Completed/Discontinued Medications Medication Drug Class(es) Dates Sig (Normalized) Sig (Original) ascorbic acid 500 mg oral tablet (4 sources) Vitamin C take 1 tablet by lola th once daily ascorbic acid, vitamin C, (VITAMIN C) 500 mg tablet Take 500 mg by mouth once daily. 0 Active Problems Active Problems Problem Classification Problem Date Documented Da te Episodic/Chronic Chronic obstructive pulmonary disease and bronchiectasis (4 sources) Chronic bronchitis; Translations: [Unspecified chronic bronchitis] 03-19-2008 Chronic Disorders of lipid metabolism (4 sources) Pure hypercholesterolemia; Translations: [Pure hypercholesterolemia, unspecified] 07-19-2010 Chronic Esophageal disorders (4 sources) Gastroesophageal reflux disease; Translations: [Gastro-esophageal reflux disease without esophagitis] Onset: 5 07-25-2014 Chronic Essential hypertension (4 sources) Benign essential hypertension; Translations: [Essential (primary) hypertension] Onset: 1 07-20-2010 Chronic Other gastrointestinal disorders (2 sources) Finding of abdominopelvic segment of trunk; Translations: [Intra-abdominal and pelvic swelling, mass and lump, unspecified site] Episodic Other gastrointestinal disorders (1 source) Intra-abdominal and pelvic swelling, mass and lump, unspecified site; Translations: [Intra-abdominal and pelvic swelling, mass and lump, unspecified site] Onset: 2 Episodic Other nutritional; endocrine; and metabolic disorders (4 sources) Obesity; Translations: [Obesity, unspecified] Onset: 8 03-19-2008 Chronic Spondylosis; intervertebral disc disorders; other back problems (4 sources) Degeneration of lumbosacral intervertebral disc; Translations: [Other intervertebral disc degeneration, lumbosacral region] Onset: 8 07-19-2010 Chronic Past or Other Problems Problem Classification Problem Date Documented Da te Episodic/Chronic Abdominal hernia (8 sources) Umbilical hernia; Translations: [Umbilical hernia without obstruction or gangrene] Onset: 01-24-2015 01-24-2015 Episodic Abdominal pain (5 sources) Right inguinal pain; Translations: [Right lower quadrant pain] Onset: 01-05-2016 01-05-2016 Episodic Diabetes mellitus without complication (4 sources) Impaired fasting glycemia; Translations: [Impaired fasting glucose] Onset: 12-18-2007 07-19-2010 Episodic Gastritis and duodenitis (4 sources) Acute gastritis; Translations: [Acute gastritis without bleeding] Onset: 01-19-2008 03-19-2008 Episodic Other and unspecified benign neoplasm (4 sources) Benign neoplasm of colon; Translations: [Benign neoplasm of colon, unspecified] Onset: 12-08-2006 03-02-2021 Episodic Other and unspecified benign neoplasm (4 sources) History of polyp of colon; Translations: [Personal history of colonic polyps] Onset: 08-05-2011 08-05-2011 Episodic Other connective tissue disease (4 sources) Calcaneal spur; Translations: [Calcaneal spur, unspecified foot] Onset: 03-31-2011 03-31-2011 Episodic Residual codes; unclassified (4 sources) Tobacco use and exposure - finding; Translations: [Tobacco use] Onset: 01-24-2015 01-24-2015 Episodic Results Test Name Value Interpretation Reference Range Facil ity Vital Signs Date Time Vital Sign Value Performing Clinician Faci jeanette 01-06-2022 11:13-0400 Body height 185.4 cm Tyler Baires MD Work Phone: [facility] 01-06-2022 11:13-0400 Body temperature 97.9 [degF] Tyler Baires MD Work Phone: [facility] 01-06-2022 11:13-0400 Body weight 107.96 kg Tyler Baires MD Work Phone: [facility] 01-06-2022 11:13-0400 Diastolic blood pressure 78 mm[Hg] Tyler Baires MD Work Phone: [facility] 01-06-2022 11:13-0400 Heart rate 91 /min Tyler Baires MD Work Phone: [facility] 01-06-2022 11:13-0400 SaO2% (BldA) [Mass fraction] 98 % Tyler Baires MD Work Phone: [facility] 01-06-2022 11:13-0400 Systolic blood pressure 126 mm[Hg] Tyler Baires MD Work Phone: [facility] 12-24-2021 11:36-0400 Body height 185.4 cm Tyler Baires MD Work Phone: [facility] 12-24-2021 11:36-0400 Body temperature 98.2 [degF] Tyler Baires MD Work Phone: [facility] 12-24-2021 11:36-0400 Body weight 107.96 kg Tyler Baires MD Work Phone: [facility] 12-24-2021 11:36-0400 Diastolic blood pressure 60 mm[Hg] Tyler Baires MD Work Phone: [facility] 12-24-2021 11:36-0400 Heart rate 90 /min Tyler Baires MD Work Phone: [facility] 12-24-2021 11:36-0400 SaO2% (BldA) [Mass fraction] 96 % Tyler Baires MD Work Phone: [facility] 12-24-2021 11:36-0400 Systolic blood pressure 130 mm[Hg] Tyler Baires MD Work Phone: [facility] Encounters Encounter Date Encounter Type Care Provider Facility Start: 01-06-2022 End: 01-06-2022 ambulatory TYLER BAIRES Facility:[facility] Start: 01-06-2022 End: 01-06-2022 Patient encounter procedure Tyler Baires MD Work Phone: General Surgery Procedures Date Procedure Procedure Detail Performing Clinician Start: 12-30-2021 Ct abdomen & pelvis w/o contrast material Tyler Baires MD Work Phone: Start: 08-30-2019 Colonoscopy Tyler montoya MD Work Phone: Plan of Treatment Date Care Activity Detail Author Start: 08-29-2024 Colonoscopy COLONOSCOPY [facility] Start: 08-29-2024 COLORECTAL CANCER SCREENING COLORECTAL CANCER SCREENING [facility] Start: 01-06-2023 BP CONTROLLED (<130/80) BP CONTROLLED (<130/80) [facility] in Start: 11-05-2022 Covid-19 Vaccine () Covid-19 Vaccine () [facility] Start: 11-05-2022 Influenza vaccination Influenza Vaccine (#1) [facility] Start: 03-07-2022 Advance Directive Discussion Advance Directive Discussion [facility] Start: 03-07-2022 Depression Assessment Depression Assessment [facility] Start: 03-07-2021 ADVANCE DIRECTIVE DISCUSSION ADVANCE DIRECTIVE DISCUSSION [facility] Start: 03-07-2021 DEPRESSION ASSESSMENT DEPRESSION ASSESSMENT [facility] Start: 01-06-2019 DIABETES SCREEN DIABETES SCREEN [facility] Start: 01-06-2019 Diabetes Screening Diabetes Screening [facility] Start: 07-27-2016 LIPID SCREEN LIPID SCREEN [facility] Start: 07-27-2012 Pneumococcal Vaccine: 65+ (2 - PCV) Pneumococcal Vaccine: 65+ (2 - PCV) [facility] Start: 07-27-2012 PNEUMOCOCCAL: 65+ (2 - PCV) PNEUMOCOCCAL: 65+ (2 - PCV) [facility] Start: 11-24-2007 SHINGRIX VACCINE (2 of 3) SHINGRIX VACCINE (2 of 3) [facility] Start: 1996 Influenza vaccination LUNG CANCER SCREENING [facility] Start: 1991 COLOGUARD (FIT-DNA) COLOGUARD (FIT-DNA) [facility] Start: [address] COLONOGRAPHY [facility] Start: 1991 FECAL OCCULT BLOOD FECAL OCCULT BLOOD [facility] Start: 1991 SIGMOIDOSCOPY SIGMOIDOSCOPY [facility] Start: 1965 Urine microalbumin profile [facility] Start: 1964 ANNUAL PCP TEAM CHRONIC DISEASE VISIT ANNUAL PCP TEAM CHRONIC DISEASE VISIT [facility] Start: 1964 BP CONTROLLED (<130/80) BP CONTROLLED (<130/80) [facility] in Start: 1964 HEPATITIS C SCREENING HEPATITIS C SCREENING [facility] End: 01-23-2023 Ct abdomen & pelvis w/o contrast material CT ABD/PEL WO IVCON Radiology Routine Intra-abdominal and pelvic swelling, mass and lump, unspecified site 1 Occurrences starting 12/24/2021 until 01/23/2023 [facility] Work Phone: Immunizations Immunization Date Immunization Notes Care Provider Bhumi cortez 11-30-2021 influenza virus vacc ine, unspecified formulation Ct (I-Stat) Work Phone: [facility] 11-27-2011 influenza virus vacc ine, unspecified formulation Tyler Baires MD Work Phone: [facility] 07-28-2011 pneumococcal polysaccharide vaccine, 23 valent Tyler Baires MD Work Phone: [facility] Work Phone: 12-08-2007 influenza virus vacc ine, unspecified formulation Tyler Baires MD Work Phone: [facility] 09-29-2007 zoster vaccine, live Tyler Baires MD Work Phone: [facility] Work Phone: 01-14-2007 influenza virus vacc ine, unspecified formulation Tyler Baires MD Work Phone: [facility] 01-17-2006 influenza virus vacc ine, unspecified formulation Tyler Baires MD Work Phone: [facility] 01-14-2005 influenza virus vacc ine, unspecified formulation Tyler Baires MD Work Phone: [facility] Work Phone: Payers Date Payer Category Payer Medicare MEDICARE MEDICAR E A AND B [id number] 2011-Present [phone] [address] [address] [place] [address] Medicare [id number] 2011 Medicare [id number] 2006 [employer] ( and others) [id number] 2006 Unknown FOR LIFE [id number] 2006-Present [phone] [address] [place] [address] Indemnity [id number] Social History Date Type Detail Facility Start: [facility] History of tobacco use Cigarette Smoker [facility] Start: 02-10-2020 End: 12-24-2021 Cigarettes smoked current (pack per day) - Reported 0.5 [facility] Start: 12-24-2021 Tobacco use and exposure Smoke less tobacco non-user [facility] Start: 12-24-2021 End: 01-06-2022 Alcohol intake Current drinker of alcohol (finding) [facility] Start: 12-24-2021 Tobacco Comment less than .5 ppd [facility] Start: 1945 Sex Assigned At Not on file [facility] Start: 12-14-2021 End: 01-06-2022 Exposure to SARS-CoV-2 (event) Not sure [facility] Start: 02-10-2020 End: 12-24-2021 Tobacco use panel [facility] National Score (1-10 0), lower number is lower risk Not on file [facility] Medical Equipment Procedure Code Equipment Code Equipment Origin al Text Equipment Identifier Dates Patch Ventralex St Sepra Sorbaflex 3.2in Large [employer] - [id number] Start: 01-20-2016 Clinical Notes 07-25-2014 to 01-06-2022 Tyler Baires MD - 01/06/2022 12:57 PM Khushboo King RT(Keyshawn) - 12/30/2021 11:20 AM Robles Baires MD - 12/24/2021 7:28 PM Reanna Rocha LPN - 12/24/2021 11:38 AM EDT Note Date & Type Note Facility 01-06-2022 Note HNO ID: [id number] Author: Tyler Baires MD Service: ? Author Type: Physician Type: Progress Notes Filed: 01/06/2022 4:40 PM Note Text: FOLLOW UP VISIT NAME: Lizzy Santos [facility] NO.: [id number] DATE OF SERVICE: 01/06/2022 : 1945 REFERRING PHYSICIAN: Zina Ferrell MD Lizzy is a patient I am following for pain lateral to his umbilical incision site. The patient is a 76 year old male with a complaint of sensation of a swelling and discomfort to the left aspect of his umbilicus. I performed both bilateral laparoscopic inguinal and indirect hernia pair with mesh in 2015. The patient noted no issues at the time of surgery and has not noted any difficulties until more recently when he notes somewhat of a swelling again to the left of his midline and that the area is slightly sore he notes being somewhat lumpy. He denies nausea vomiting change in bowel habits constipation diarrhea bloating obstructive symptoms or other complaints. The area does not seem to swell or get smaller with coughing or straining. Is concerned this could be recurrent hernia. The patient is being seen by me today at the request of Dr. Zina Ferrell MD for my opinion and advice regarding possible recurrence at the site of his umbilical repair with mesh. I obtained a CT scan of the abdomen pelvis given his concern for a lump and also the note of burning in that area. This demonstrated no signs of recurrent hernia or true masses. VITALS: Blood pressure 126/78, pulse 91, temperature 36.6 ?C (97.9 ?F), height 185.4 cm (6' 1 ), weight 108 kg (238 lb), SpO2 98 %. On examination, he has point tenderness just to the left lateral and slightly superior to the umbilicus approximately at what would be the edge of the mesh from his previous hernia repair. PROCEDURE: INJECTION OF LOCAL/STEROID - PERIUMBILICAL The risks, benefits and anticipated outcomes of the procedure, the risks and benefits of the alternatives to the procedure, and the roles and tasks of the personnel to be involved, were discussed with the patient, and the patient consents to the procedure and agrees to proceed. After consent was obtained and the site, person, and procedure verified, the patient`s skin was prepped and draped in the usual fashion. A combination of Lidocaine and Marcaine along with 10mg of Kenalog was injected into the skin. Ultrasound was used to demonstrate the appropriate layer for planned injection just above and below the fascial plane. The local anesthetic/steroid mixture was then injected at the planned location at the appropriate depth. This gave significant pain relief. The patient tolerated the procedure well. Assessment IMPRESSION: Neuropathic pain left of umbilical hernia repair PLAN: I discussed with the patient I will typically perform injections of local steroid combination monthly up to 3 times since he received relief initially. He should follow-up with me in 1 month if he still having pain for repeat injection. Diagnoses: (R10.33) Periumbilical pain (primary encounter diagnosis) Return to Clinic: The patient is instructed to follow-up with me in 1 month. Tyler Baires MD [facility] 01-06-2022 History of Present illness Narrative FOLLOW UP VISIT NAME: Lizzy Santos [facility] NO.: [id number] DATE OF SERVICE: 01/06/2022 : 1945 REFERRING PHYSICIAN: Zina Ferrell MD Lizzy is a patient I am following for pain lateral to his umbilical incision site. The patient is a 76 year old male with a complaint of sensation of a swelling and discomfort to the left aspect of his umbilicus. I performed both bilateral laparoscopic inguinal and indirect hernia pair with mesh in 2016. The patient noted no issues at the time of surgery and has not noted any difficulties until more recently when he notes somewhat of a swelling again to the left of his midline and that the area is slightly sore he notes being somewhat lumpy. He denies nausea vomiting change in bowel habits constipation diarrhea bloating obstructive symptoms or other complaints. The area does not seem to swell or get smaller with coughing or straining. Is concerned this could be recurrent hernia. The patient is being seen by me today at the request of Dr. Zina Ferrell MD for my opinion and advice regarding possible recurrence at the site of his umbilical repair with mesh. I obtained a CT scan of the abdomen pelvis given his concern for a lump and also the note of burning in that area. This demonstrated no signs of recurrent hernia or true masses. VITALS: Blood pressure 126/78, pulse 91, temperature 36.6 C (97.9 F), height 185.4 cm (6' 1 ), weight 108 kg (238 lb), SpO2 98 %. On examination, he has point tenderness just to the left lateral and slightly superior to the umbilicus approximately at what would be the edge of the mesh from his previous hernia repair. PROCEDURE: INJECTION OF LOCAL/STEROID - PERIUMBILICAL The risks, benefits and anticipated outcomes of the procedure, the risks and benefits of the alternatives to the procedure, and the roles and tasks of the personnel to be involved, were discussed with the patient, and the patient consents to the procedure and agrees to proceed. After consent was obtained and the site, person, and procedure verified, the patient`s skin was prepped and draped in the usual fashion. A combination of Lidocaine and Marcaine along with 10mg of Kenalog was injected into the skin. Ultrasound was used to demonstrate the appropriate layer for planned injection just above and below the fascial plane. The local anesthetic/steroid mixture was then injected at the planned location at the appropriate depth. This gave significant pain relief. The patient tolerated the procedure well. Assessment IMPRESSION: Neuropathic pain left of umbilical hernia repair PLAN: I discussed with the patient I will typically perform injections of local steroid combination monthly up to 3 times since he received relief initially. He should follow-up with me in 1 month if he still having pain for repeat injection. Diagnoses: (R10.33) Periumbilical pain (primary encounter diagnosis) Return to Clinic: The patient is instructed to follow-up with me in 1 month. Tyler Baires MD documented in this encounter [facility] 12-30-2021 Note HNO ID: [id number] Author: EVELYN Hooker) Service: ? Author Type: Marketing Specialist Type: Progress Notes Filed: 12/30/2021 4:02 PM Note Text: Radiology Service Progress Note PATIENT NAME: Lizzy Santos DATE OF SERVICE: December 30, 2021 TIME: 4:02 PM PATIENT IDENTITY VERIFICATION COMPLETED USING TWO (2) IDENTIFIERS: Name and Date of confirmed by patient verbally. FALL SCREENING: Has the patient had 2 falls in the last year or 1 fall with injury or currently using an Ambulatory Assistive Device (Walker, Cane, Wheelchair, Crutches, etc.)? No PATIENT GENDER DATA: Male PATIENT RELEVANT IMPLANT DATA REVIEWED: Yes RADIOLOGY DEPARTMENT: CT; Exam(s) Completed: Abdomen/Pelvis PERIPHERAL IV DATA: Not applicable SIGNED BY: EVELYN Linder) December 30, 2021 4:02 PM [facility] 12-30-2021 History of Present illness Narrative Radiology Service Progress Note PATIENT NAME: Lizzy Santos DATE OF SERVICE: December 30, 2021 TIME: 4:02 PM PATIENT IDENTITY VERIFICATION COMPLETED USING TWO (2) IDENTIFIERS: Name and Date of confirmed by patient verbally. FALL SCREENING: Has the patient had 2 falls in the last year or 1 fall with injury or currently using an Ambulatory Assistive Device (Walker, Cane, Wheelchair, Crutches, etc.)? No PATIENT GENDER DATA: Male PATIENT RELEVANT IMPLANT DATA REVIEWED: Yes RADIOLOGY DEPARTMENT: CT; Exam(s) Completed: Abdomen/Pelvis PERIPHERAL IV DATA: Not applicable SIGNED BY: RT Kailash(R) December 30, 2021 4:02 PM documented in this encounter [facility] 12-24-2021 Note HNO ID: [id number] Author: Tyler Baires MD Service: ? Author Type: Physician Type: Progress Notes Filed: 12/24/2021 7:32 PM Note Text: HISTORY AND PHYSICAL Lizzy Forde Karl 1945 REFERRING PHYSICIAN: Self CHIEF COMPLAINT: Consult (hernia) HPI: The patient is a 76 year old male with a complaint of sensation of a swelling and discomfort to the left aspect of his umbilicus. I performed both bilateral laparoscopic inguinal and indirect hernia pair with mesh in 2016. The patient noted no issues at the time of surgery and has not noted any difficulties until more recently when he notes somewhat of a swelling again to the left of his midline and that the area is slightly sore he notes being somewhat lumpy. He denies nausea vomiting change in bowel habits constipation diarrhea bloating obstructive symptoms or other complaints. The area does not seem to swell or get smaller with coughing or straining. Is concerned this could be recurrent hernia. The patient is being seen by me today at the request of Dr. Zina Ferrell MD for my opinion and advice regarding possible recurrence at the site of his umbilical repair with mesh. PAST MEDICAL HISTORY Diagnosis Date Acute gastritis without mention of hemorrhage Arrhythmia Benign neoplasm of colon Esophagitis, unspecified External hemorrhoids with other complication Hypertension PMH - PAST MEDICAL HISTORY OF L4 AND L5 degenerative spine disease Pure hypercholesterolemia 2004 mild Reflux esophagitis Tobacco use disorder age 23 Unspecified chronic bronchitis (HCC) age late 50s PFT's; aerosol temporarily in the past PAST SURGICAL HISTORY Procedure Laterality Date COLONOSCOPY 08/13/2014 COLONOSCOPY FLX DX W/COLLJ SPEC WHEN PFRMD 08/30/2019 Colonoscopy COLSC FLX W/RMVL OF TUMOR POLYP LESION SNARE TQ 12/08/06 EGD TRANSORAL BIOPSY SINGLE/MULTIPLE 01/19/08 LAP RPR HRNA XCPT INCAL/INGUN NCRC8/STRANGULATED 01/20/16 LAPAROSCOPY SURG RPR INITIAL INGUINAL HERNIA Bilateral 01/20/16 PAST SURGICAL HISTORY OF 1990 collapsed lung PAST SURGICAL HISTORY OF 01/08 back surgery, lumbar decompression, discectomy L4-5, L5-S1 per Francisco J rodney Current Outpatient Medications Medication Sig pantoprazole DR (PROTONIX) 40 mg tablet Take 40 mg by mouth once daily. mecobalamin (B12 ACTIVE ORAL) once daily. Magnesium Oxide 250 mg magnesium tab Take 250 mg by mouth once daily. esomeprazole (NEXIUM) 40 mg capsule Take 40 mg by mouth once daily. potassium acetate once daily. 99 mg daily Glucosamine 1,000 mg tab Take 0.5 tablets by mouth once daily. metoprolol tartrate, short acting, (LOPRESSOR) 25 mg tablet Take 25 mg by mouth twice daily. Telmisartan (MICARDIS) 20 mg tablet Take 1 tablet by mouth once daily. simvastatin 20 mg tablet Take 1 tablet by mouth daily at bedtime. ascorbic acid, vitamin C, (VITAMIN C) 500 mg tablet Take 500 mg by mouth once daily. ASPIRIN 81 MG TAB Take 81 mg by mouth once daily. enteric contrast (will be provided with radiology test) Take 1 Each by mouth one time only for [address] ABD/PEL WO Routine order Administer, As Directed One Time Only, via Oral, Rectal, both Oral and Rectal, Enteric Tube, Stoma or Indwelling Catheter, Enteric Contrast as designated per enteric contrast guidelines No current facility-administered medications for this visit. ALLERGIES: Bees and Codeine PERSONAL HISTORY: Social History Tobacco Use Smoking status: Every Day Packs/day: 0.50 Years: 44.00 Pack years: 22.00 Types: Cigarettes Smokeless tobacco: Never Tobacco comments: less than .5 ppd Vaping Use Vaping Use: Never used Substance Use Topics Alcohol use: Yes Alcohol/week: 50.0 standard drinks Types: 20 Cans of Beer (12oz) per week Drug use: No FAMILY HISTORY: FAMILY HISTORY Problem Relation Age of Onset None Mother Emphysema Father REVIEW OF SYMPTOMS: The review of systems data was entered by the nurse and reviewed by me Nursing Notes: Edda Rocha LPN 12/24/2021 11:39 AM Signed REVIEW OF SYSTEMS: General: The patient denies fatigue, denies weight loss, denies weight gain, denies feeling hot, and denies feelings of cold. Eyes: The patient denies glaucoma, notes eye injury/surgery, does not wear glasses or contacts. Ear/Nose/Throat: The patient notes allergies, denies hayfever, denies ear infections, and denies bloody noses. Cardiovascular: The patient denies chest pain, denies heart disease, notes high blood pressure,denies cardiac stent, notes prior heart attack, denies irregular heart beat, denies high cholesterol, denies poor circulation, denies heart failure, other cardiac issues, denies claudication, denies cold feet, denies peripheral arterial stent. Respiratory: The patient denies tuberculosis, denies pneumonia, denies frequent cough, denies pulmonary embolism, denies shortness of breath, and denies coughing up blood. Gastrointestinal: The patie (more content not included)... [facility] 12-24-2021 History of Present illness Narrative HISTORY AND PHYSICAL Lizzy Santos 1945 REFERRING PHYSICIAN: Self CHIEF COMPLAINT: Consult (hernia) HPI: The patient is a 76 year old male with a complaint of sensation of a swelling and discomfort to the left aspect of his umbilicus. I performed both bilateral laparoscopic inguinal and indirect hernia pair with mesh in 2016. The patient noted no issues at the time of surgery and has not noted any difficulties until more recently when he notes somewhat of a swelling again to the left of his midline and that the area is slightly sore he notes being somewhat lumpy. He denies nausea vomiting change in bowel habits constipation diarrhea bloating obstructive symptoms or other complaints. The area does not seem to swell or get smaller with coughing or straining. Is concerned this could be recurrent hernia. The patient is being seen by me today at the request of Dr. Zina Ferrell MD for my opinion and advice regarding possible recurrence at the site of his umbilical repair with mesh. PAST MEDICAL HISTORY Diagnosis Date Acute gastritis without mention of hemorrhage Arrhythmia Benign neoplasm of colon Esophagitis, unspecified External hemorrhoids with other complication Hypertension PMH - PAST MEDICAL HISTORY OF L4 & L5 degenerative spine disease Pure hypercholesterolemia 2005 mild Reflux esophagitis Tobacco use disorder age 23 Unspecified chronic bronchitis (HCC) age late 50s PFT's; aerosol temporarily in the past PAST SURGICAL HISTORY Procedure Laterality Date COLONOSCOPY 08/13/2014 COLONOSCOPY FLX DX W/COLLJ SPEC WHEN PFRMD 08/30/2019 Colonoscopy COLSC FLX W/RMVL OF TUMOR POLYP LESION SNARE TQ 12/08/06 EGD TRANSORAL BIOPSY SINGLE/MULTIPLE 01/19/08 LAP RPR HRNA XCPT INCAL/INGUN NCRC8/STRANGULATED 01/20/16 LAPAROSCOPY SURG RPR INITIAL INGUINAL HERNIA Bilateral 01/20/16 PAST SURGICAL HISTORY OF 1989 collapsed lung PAST SURGICAL HISTORY OF 01/08 back surgery, lumbar decompression, discectomy L4-5, L5-S1 per Francisco J rodney Current Outpatient Medications Medication Sig pantoprazole DR (PROTONIX) 40 mg tablet Take 40 mg by mouth once daily. mecobalamin (B12 ACTIVE ORAL) once daily. Magnesium Oxide 250 mg magnesium tab Take 250 mg by mouth once daily. esomeprazole (NEXIUM) 40 mg capsule Take 40 mg by mouth once daily. potassium acetate once daily. 99 mg daily Glucosamine 1,000 mg tab Take 0.5 tablets by mouth once daily. metoprolol tartrate, short acting, (LOPRESSOR) 25 mg tablet Take 25 mg by mouth twice daily. Telmisartan (MICARDIS) 20 mg tablet Take 1 tablet by mouth once daily. simvastatin 20 mg tablet Take 1 tablet by mouth daily at bedtime. ascorbic acid, vitamin C, (VITAMIN C) 500 mg tablet Take 500 mg by mouth once daily. ASPIRIN 81 MG TAB Take 81 mg by mouth once daily. enteric contrast (will be provided with radiology test) Take 1 Each by mouth one time only for [address] ABD/PEL WO Routine order Administer, As Directed One Time Only, via Oral, Rectal, both Oral and Rectal, Enteric Tube, Stoma or Indwelling Catheter, Enteric Contrast as designated per enteric contrast guidelines No current facility-administered medications for this visit. ALLERGIES: Bees and Codeine PERSONAL HISTORY: Social History Tobacco Use Smoking status: Every Day Packs/day: 0.50 Years: 44.00 Pack years: 22.00 Types: Cigarettes Smokeless tobacco: Never Tobacco comments: less than .5 ppd Vaping Use Vaping Use: Never used Substance Use Topics Alcohol use: Yes Alcohol/week: 50.0 standard drinks Types: 20 Cans of Beer (12oz) per week Drug use: No FAMILY HISTORY: FAMILY HISTORY Problem Relation Age of Onset None Mother Emphysema Father REVIEW OF SYMPTOMS: The review of systems data was entered by the nurse and reviewed by me Nursing Notes: Edda GANESH Rocha 12/24/2021 11:39 AM Signed REVIEW OF SYSTEMS: General: The patient denies fatigue, denies weight loss, denies weight gain, denies feeling hot, and denies feelings of cold. Eyes: The patient denies glaucoma, notes eye injury/surgery, does not wear glasses or contacts. Ear/Nose/Throat: The patient notes allergies, denies hayfever, denies ear infections, and denies bloody noses. Cardiovascular: The patient denies chest pain, denies heart disease, notes high blood pressure,denies cardiac stent, notes prior heart attack, denies irregular heart beat, denies high cholesterol, denies poor circulation, denies heart failure, other cardiac issues, denies claudication, denies cold feet, denies peripheral arterial stent. Respiratory: The patient denies tuberculosis, denies pneumonia, denies frequent cough, denies pulmonary embolism, denies shortness of breath, and denies coughing up blood. Gastrointestinal: The patient denies difficulty swallowing, notes acid reflux, denies ulcers, denies vomiting, denies jaundice/hepatitis, denies gallbladder problems, denies black or tarry stools, denies hemorrhoids, denies bleeding from rectum, denies diverticulitis, denies constipation, denies diarrhea, denies loss of stool control, and denies hernias. Kidney/Bladder: The patient denies kidney stones, denies urine infections, and denies bloody urine. Skin: The patient denies a history of skin cancer, denies bleeding/changing moles, and denies a history of skin rash. Neurologic: The patient denies a history of epilepsy/convulsions, denies headaches, denies head/spinal injuries, and denies stroke/TIA. Psychiatric: The patient denies psychiatric medications, denies depression, and denies voices, denies substance abuse. Endocrine: The patient denies thyroid disorders, denies diabetes, and denies hormonal problems. Hematologic: The patient denies a history of bruising, denies bleeding, and denies anemia, denies blood clots. Infections: The patient denies a history of measles and mumps, denies rheumatic fever, and denies sexually transmitted diseases. Musculoskeletal: The patient notes back pain/injury, notes back problems, denies sciatica, denies knee/foot trouble, denies arthritis, or denies gout. When was patient's last Mammogram screening? N/A Last Colonoscopy: 2019 Edda Rocha, GANESH PHYSICAL EXAMINATION: General: The patient is 76 year old male, well nourished, well hydrated in no acute distress. The patient is oriented to time, place, and person. VITALS: Blood pressure 130/60, pulse 90, temperature 36.8 C (98.2 F), height 185.4 cm (6' 1 ), weight 108 kg (238 lb), SpO2 96 %. HEENT: Normal cephalic, ataumatic, pupils are equally round, sclera are anicteric, mucous membranes are moist, oropharynx is clear. Neck has no masses, asymmetry or lymphadenopathy. Thyroid is unremarkable. Respiratory: Clear to auscultation and percussion. Normal respiratory excursion and pattern. Cardiac: Examination is regular rate and rhythm. Abdominal exam: Soft, nontender, with no palpable masses. No hepatosplenomegaly. No palpable hernias. A slight asymmetric swelling to the left of his midline at approximately the location of the lateral aspect of the previously placed mesh. No obvious hernia with straining Rectal exam: exam deferred Extremities: no clubbing, cyanosis or edema. No adenopathy. Other: LABORATORY VALUES: As Noted RADIOLOGIC STUDIES: As Noted Intraoffice ultrasound was obtained. This demonstrated no hernias in the present with straining or coughing or other abnormalities noted on ultrasound. Assessment IMPRESSION: Symmetry left of previous umbilical hernia site concern for recurrent hernia PLAN: I plan to obtain a CT scan of the abdomen pelvis to assure that there is no recurrence even though I could not find any abnormalities on office-based ultrasound. The placement is to follow-up in my office after the CT scan has been obtained to review the films and discuss next steps. Diagnoses: (R19.00) Intra-abdominal and pelvic swelling, mass and lump, unspecified site (primary encounter diagnosis) My findings have been communicated to Dr. Zina Ferrell MD via shared medical record. This note will be forwarded to Dr. Zina Ferrell MD. Return to Clinic: The patient is instructed to follow-up with me after the testing has been completed. Tyler Baires MD documented in this encounter [facility] 12-24-2021 Nurse Note REVIEW OF SYSTEMS: General: The patient denies fatigue, denies weight loss, denies weight gain, denies feeling hot, and denies feelings of cold. Eyes: The patient denies glaucoma, notes eye injury/surgery, does not wear glasses or contacts. Ear/Nose/Throat: The patient notes allergies, denies hayfever, denies ear infections, and denies bloody noses. Cardiovascular: The patient denies chest pain, denies heart disease, notes high blood pressure,denies cardiac stent, notes prior heart attack, denies irregular heart beat, denies high cholesterol, denies poor circulation, denies heart failure, other cardiac issues, denies claudication, denies cold feet, denies peripheral arterial stent. Respiratory: The patient denies tuberculosis, denies pneumonia, denies frequent cough, denies pulmonary embolism, denies shortness of breath, and denies coughing up blood. Gastrointestinal: The patient denies difficulty swallowing, notes acid reflux, denies ulcers, denies vomiting, denies jaundice/hepatitis, denies gallbladder problems, denies black or tarry stools, denies hemorrhoids, denies bleeding from rectum, denies diverticulitis, denies constipation, denies diarrhea, denies loss of stool control, and denies hernias. Kidney/Bladder: The patient denies kidney stones, denies urine infections, and denies bloody urine. Skin: The patient denies a history of skin cancer, denies bleeding/changing moles, and denies a history of skin rash. Neurologic: The patient denies a history of epilepsy/convulsions, denies headaches, denies head/spinal injuries, and denies stroke/TIA. Psychiatric: The patient denies psychiatric medications, denies depression, and denies voices, denies substance abuse. Endocrine: The patient denies thyroid disorders, denies diabetes, and denies hormonal problems. Hematologic: The patient denies a history of bruising, denies bleeding, and denies anemia, denies blood clots. Infections: The patient denies a history of measles and mumps, denies rheumatic fever, and denies sexually transmitted diseases. Musculoskeletal: The patient notes back pain/injury, notes back problems, denies sciatica, denies knee/foot trouble, denies arthritis, or denies gout. When was patient's last Mammogram screening? N/A Last Colonoscopy: 2019 Edda Rocha LPN documented in this encounter [facility] documented as of this encounter (statuses as of 12/24/2021) [facility] History of Past illness Narrative* Problem Noted Date Resolved Date Dysphagia 07/25/2014 01/07/2016 Onychia and paronychia of toe 04/14/2011 Reflux esophagitis 01/19/2008 01/07/2016 Esophageal reflux 12/08/2007 01/07/2016 Overview: Excellent response to PPI 2006; EGD --- Dr. Collazo 2007 ----> Erosive esophagitis; Elevation of head of bed recommended Special screening for malignant neoplasms, colon 11/25/2006 01/07/2016 Blood in stool 11/25/2006 03/19/2008 PMH - PAST MEDICAL HISTORY OF Overview: L4 & L5 degenerative spine disease Tobacco use disorder 01/07/2016 documented as of this encounter (statuses as of 01/06/2022) [facility] History of Past illness Narrative* Problem Noted Date Diagnosed Date Resolved Date Dysphagia 07/25/2014 01/07/2016 Onychia and paronychia of toe 04/14/2011 01/07/2016 Reflux esophagitis 01/19/2008 6 Esophageal reflux 12/08/2007 01/07/2016 Overview: Excellent response to PPI 2006; EGD --- Dr. Collazo 2007 ----> Erosive esophagitis; Elevation of head of bed recommended Special screening for malign ant neoplasms, colon 11/25/2006 01/07/2016 Blood in stool 11/25/2006 03/19/2008 PMH - PAST MEDICAL HISTORY OF 12/08/2007 Overview: L4 & L5 degenerative spine disease Tobacco use disorder 016 documented as of this encounter (statuses as of 01/08/2023) [facility] History of Past illness Narrative* Problem Noted Date Diagnosed Date Resolved Date Dysphagia 07/25/2014 01/07/2016 Onychia and paronychia of toe 04/14/2011 01/07/2016 Reflux esophagitis 01/19/2008 6 Esophageal reflux 12/08/2007 01/07/2016 Overview: Excellent response to PPI 2006; EGD --- Dr. Collazo 2007 ----> Erosive esophagitis; Elevation of head of bed recommended Special screening for malign ant neoplasms, colon 11/25/2006 01/07/2016 Blood in stool 11/25/2006 03/19/2008 PM - PAST MEDICAL HISTORY OF 12/08/2007 Overview: L4 & L5 degenerative spine disease Tobacco use disorder 016 documented as of this encounter (statuses as of 01/08/2023) [facility] Diagnosis Intra-abdominal and pelvic swelling, mass and lump, unspecified site- Primary [facility] Diagnosis Periumbilical pain- Primary Abdominal pain, periumbilic [facility] Diagnosis Intra-abdominal and pelvic swelling, mass and lump, unspecified site documented in this encounter [facility] Reason for Referral Specialty Diagnoses / Procedures Referred By Ozzie johnson Referred To Contact CT IMAGING Diagnoses Intra-abdominal and pelvic swelling, mass and lump, unspecified site Procedures CT ABD/PEL WO IVCON CT ABD & PELVIS W/O CONTRAST Tyler Baires MD [address] [place] [address] Ct Imaging Referral ID Status Reason Start Date Expiration Date Visits Requested Visits Authorized [id number] Authorized Auto-Generat ed Referral 10/20/01/23/2023 1 1 Specialty Diagnoses / Procedures Referred By Ozzie johnson Referred To Contact CT IMAGING Diagnoses Intra-abdominal and pelvic swelling, mass and lump, unspecified site Procedures CT ABD/PEL WO IVCON CT ABD & PELVIS W/O CONTRAST Tyler Baires MD [address] [place] [address] [place] [address] Referral ID Status Reason Start Date Expiration Date V isits Requested Visits Authorized [id number] Closed Auto-Generate d Referral 12/24/2021 01/23/2023 1 1 Advance Directives Documents on File Type Date Recorded 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 Piercer Operator Expl 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 Advance Directive(s) 06/16/2011 Advance Directive(s) 03/13/2008 7:59 AM Documents on File Type Date Recorded Patient Piercer Operator Expl 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 Advance Directive(s) 06/16/2011 Advance Directive(s) 03/13/2008 7:59 AM Summary Purpose Family History No Family History Records Found Additional Source Comments Source Comments (unrecognize d section and content) In the event this informatio n is protected by the Federal Confidentiality of Alcohol and Drug Abuse Patient Records regulations: The Federal rules restrict any use of the information to criminally investigate or prosecute any alcohol or drug abuse patient.[facility] event this information is protected by the Federal Confidentiality of Alcohol and Drug Abuse Patient Records regulations: The Federal rules restrict any use of the information to criminally investigate or prosecute any alcohol or drug abuse patient.[facility] the event this information is protected by the Federal Confidentiality of Alcohol and Drug Abuse Patient Records regulations: The Federal rules restrict any use of the information to criminally investigate or prosecute any alcohol or drug abuse patient.[facility] the event this information is protected by the Federal Confidentiality of Alcohol and Drug Abuse Patient Records regulations: The Federal rules restrict any use of the information to criminally investigate or prosecute any alcohol or drug abuse patient.[facility] Reason for Visit (unrecogniz ed section and content) Reason Comments Follow Up CT scan Reason Comments Radiology CT Specialty Diagnoses / Procedures Referred By Ozzie johnson Referred To Contact CT IMAGING Diagnoses Intra-abdominal and pelvic swelling, mass and lump, unspecified site Procedures CT ABD/PEL WO IVCON CT ABD & PELVIS W/O CONTRAST Tyler Baires MD [address] [place] [address] [place] [address] Referral ID Status Reason Start Date Expiration Date V isits Requested Visits Authorized [id number] Closed Auto-Generate d Referral 12/24/2021 01/23/2023 1 1 Care Teams (unrecognized sec tion and content) County Bailiff Relationship Specialty Start Date End Date Zina Ferrell MD PCP - General Family Medicine 07/19/14 County Bailiff Relationship Specialty Start Date End Date Zian Ferrell MD PCP - General Family Medicine 07/19/14 County Bailiff Relationship Specialty Start Date End Date Zina Ferrell MD PCP - General Family Medicine 07/19/14 (unrecognized sect ion and content) No Status Records Found INFORMATION SOURCE (unrecogn ized section and content) FOR RECORDS PERTAINING TO PATIENTS WHO ARE OR HAVE BEEN ENROLLED IN A CHEMICAL DEPENDENCY/SUBSTANCEABUSE PROGRAM, SOME INFORMATION MAY BE OMITTED. This clinical summary was aggregated from multiple sources. Caution should be exercised in using it in the provision of clinical care. This summary normalizes information from multiple sources, and as a consequence, information in this document may materially change the coding, format and clinical context of patient data. In addition, data may be omitted in some cases. CLINICAL DECISIONS SHOULD BE BASED ON THE PRIMARY CLINICAL RECORDS. [employer] [facility]. provides no warranty or guarantee of the accuracy or completeness of information in this document.
== END | disposition home or self-care (01) ==
PROVIDERS: PCP Nurse Practitioner Family; Referring Provider Physician Assistant; Visit Provider Physician Assistant
DX: R05.9 Cough, unspecified (principal)
CPT/HCPCS: 71046

== ENCOUNTER → 2023-08-30 | Outpatient (CLI) | payer MEDICARE, OTHER, SELFPAY ==
[2023-08-30 15:21] LABS: Absolute Lymphocyte Count 2.45 X10^3/uL (0.83-4.51); Absolute Neutrophil Count 3.5 X10^3/uL (2.0-7.7); Basophil# 0.07 X10^3/uL; Eosinophil# 0.22 X10^3/uL; Eosinophils% 3.1 % (0-5); Hematocrit 42.5 % (40-54); Lymphocyte # 2.45 X10^3/ul (0.83-4.51); Mean Corp Hgb Conc 32.9 g/dL (32-36); Mean Corpuscular Hgb 32.1 pg (27.0-32.0); Mean Corpuscular Volume 97.5 fL (80-94); Mean Platelet Vol. 10.2 fl (6.2-12.0); Monocyte# 0.77 X10^3/uL; NRBC Flagged by Analyzer 0 % (0-5); Neutrophil # 3.49 X10^3/uL (2.7-7.7); Neutrophil % 49.8 % (47-70); Platelet Count 240 K/mm3 (150-450); RBC Distribution Width CV 12.5 % (11.6-14.6); Red Blood Count 4.36 M/mm3 (4.6-6.2)
[2023-08-30 15:45] LABS: ALB/GLOB Ratio 1.1 RATIO (0.9-2.4); AST(SGOT) 28 U/L (15-37); Alanine Aminotransfer ALT/SGPT 39 U/L (16-61); Albumin, Serum 3.8 g/dL (3.2-5.0); Alkaline Phosphatase 131 U/L (45-117); Anion Gap 8 (5-15); BUN 29 mg/dL (7-18); BUN/Creat Ratio 22.3 RATIO (10-20); Calcium,Total 9.2 mg/dL (8.5-10.1); Chloride 104 mmol/L (98-107); Cholesterol 136 mg/dL (200); EST Glomerular Filtration Rate 57 mL/min (>60); Est Glom Filt Rate - Afr Amer 69 mL/min (>60); Globulin 3.6 g/dL (2.2-4.2); Glucose 99 mg/dL (74-106); High Density Lipoprotein 50 mg/dL; PSA,Total - Annual Screen 0.58 ng/mL (0.00-4.00); Potassium 3.8 mmol/L (3.5-5.1); Protein, Total 7.4 g/dL (6.4-8.2); Sodium Level 140 mmol/L (136-145); Triglycerides 89 mg/dL; Very Low Density Lipoprotein 18 mg/dL (5-40)
== END | disposition home or self-care (01) ==
LOC: MTLAB 11:08
PROVIDERS: PCP Nurse Practitioner Family; Referring Provider Nurse Practitioner Family; Visit Provider Nurse Practitioner Family
DX: Z12.5 Encounter for screening for malignant neoplasm of prostate (principal); I10 Essential (primary) hypertension; E78.5 Hyperlipidemia, unspecified
CPT/HCPCS: 36415; 80053; 80061; 84153; 85025; G0103

== ENCOUNTER → 2023-09-12 | Outpatient (CLI) | payer MEDICARE, OTHER, SELFPAY ==
[2023-09-12 13:08] LABS: Anion Gap 7 (5-15); BUN 28 mg/dL (7-18); BUN/Creat Ratio 21.5 RATIO (10-20); Calcium,Total 9.1 mg/dL (8.5-10.1); Chloride 107 mmol/L (98-107); EST Glomerular Filtration Rate 57 mL/min (>60); Est Glom Filt Rate - Afr Amer 69 mL/min (>60); Glucose 113 mg/dL (74-106); Potassium 4.5 mmol/L (3.5-5.1); Sodium Level 136 mmol/L (136-145)
== END | disposition home or self-care (01) ==
PROVIDERS: PCP Nurse Practitioner Family; Referring Provider Nurse Practitioner Family; Visit Provider Nurse Practitioner Family
DX: N28.9 Disorder of kidney and ureter, unspecified (principal)
CPT/HCPCS: 36415; 80048

== ENCOUNTER → 2023-12-23 | Outpatient (CLI) | payer MEDICARE, OTHER, SELFPAY ==
--- NOTE | 2023-12-23 14:16 | RAD_ITS ---
HISTORY: RULE OUT FRACTURE. TECHNIQUE: XR Knee Complete 4 Views or More. COMPARISON: None. FINDINGS: BONES : No acute fracture identified. Mineralization unremarkable. JOINTS: No dislocation. Mild degenerative change with medial compartment joint space narrowing. SOFT TISSUES: Small density in the soft tissues medial to the tibia. RAD/Knee 4 or More Views IMPRESSION: No acute fracture or dislocation identified in the left knee. Small foreign body in the medial leg. Electronically Signed: Rosalina Gonzalez MD at 15:33 EDT ,
== END | disposition home or self-care (01) ==
LOC: MTRAD 14:13
PROVIDERS: PCP Nurse Practitioner Family; Referring Provider Nurse Practitioner Family; Visit Provider Nurse Practitioner Family
DX: M25.562 Pain in left knee (principal); Z91.81 History of falling
CPT/HCPCS: 73564

== ENCOUNTER → 2024-02-14 | Outpatient (CLI) | payer MEDICARE, OTHER, SELFPAY ==
--- NOTE | 2024-02-14 12:31 | CT_ITS ---
STUDY: LOW DOSE CT LUNG CANCER SCREENING REASON FOR EXAM: Male, 78 years old. Lung cancer screening -- and gt;20 pk yr hx;current smoker; asymptomatic RADIATION DOSAGE (If Supplied By Facility): CTDIvol = ( 2.39 ) mGy, DLP = ( 81.60 ) mGycm TECHNIQUE: No contrast was administered. Low dose technique was utilized (average mAS-38 and kVp 120). 1.25 mm axial source images with a slice interval of 1.25-mm were reconstructed in lung windows. 2.5 mm axial source images with a slice interval of 2.5-mm were reconstructed in lung windows. 5.0 mm axial source images with a slice interval of 5.0-mm were reconstructed in soft tissue windows. COMPARISON: Comparison is made with prior study dated February 08, 2023. NODULES: No suspicious nodules are seen. Emphysema: Mild degree of emphysematous changes with scarring at the lung apices. Stable calcification along the anterior inferior aspect of the right pleural space. Endobronchial lesion: None Aorta: Mild degree of atherosclerotic plaque formation of the aortic arch. CORONARY ARTERIES: Coronary artery calcification is seen. Heart: Unremarkable Pulmonary artery: Unremarkable Mediastinal nodes: Small mediastinal lymph nodes. Other chest and abdominal findings: CT/Low Dose CT Lung Screening IMPRESSION: Lung-RADS category 2 - Continue annual screening with LDCT in 12 months. IMPORTANT NOTES FOR USE: ACR Lung-RADS Version 1.1 Assessment Categories Release Date: 2018 Category: Coded 0-4 bases on nodule(s) with highest degree of suspicion. Negative screen is defined as categories 1 and 2; a positive screen is defined as categories 3 and 4. Category 3 and 4A nodules that are unchanged on interval CT should be coded as category 2, and individuals returned to screening in 12 months. Category 4X: Category 3 or 4 nodules with additional imaging findings that increase the suspicion of lung cancer, such as spiculation, GGN that doubles in size in 1 year, enlarged lymph notes, etc. Category Modifiers: S (significant finding unrelated to lung cancer) Electronically Signed: Art Manning MD at 13:12 EST ,
== END | disposition home or self-care (01) ==
LOC: CT 12:30
PROVIDERS: PCP Nurse Practitioner Family; Referring Provider Nurse Practitioner Family; Visit Provider Nurse Practitioner Family
DX: Z12.2 Encounter for screening for malignant neoplasm of respiratory organs (principal); Z87.891 Personal history of nicotine dependence
CPT/HCPCS: 71271

== ENCOUNTER → 2024-03-05 | Outpatient (CLI) | payer MEDICARE, OTHER, SELFPAY ==
[2024-03-05 12:35] LABS: Absolute Lymphocyte Count 3.19 X10^3/uL (0.83-4.51); Absolute Neutrophil Count 4.1 X10^3/uL (2.0-7.7); Basophil# 0.09 X10^3/uL; Basophil% 1.1 % (0-1); Eosinophil# 0.17 X10^3/uL; Eosinophils% 2.1 % (0-5); Hematocrit 45.3 % (40-54); Hemoglobin 14.5 g/dL (13.0-16.5); Lymphocyte # 3.19 X10^3/ul (0.83-4.51); Lymphocyte % 39.6 % (19-41); Mean Corpuscular Hgb 32.1 pg (27.0-32.0); Mean Corpuscular Volume 100.2 fL (80-94); Mean Platelet Vol. 9.7 fl (6.2-12.0); Monocyte# 0.53 X10^3/uL; Monocyte% 6.6 % (0-10); NRBC Flagged by Analyzer 0 % (0-5); Neutrophil # 4.06 X10^3/uL (2.7-7.7); Neutrophil % 50.4 % (47-70); Platelet Count 233 K/mm3 (150-450); RBC Distribution Width CV 12.6 % (11.6-14.6); RBC Distribution Width SD 47.2 fl (35.1-43.9); Red Blood Count 4.52 M/mm3 (4.6-6.2); White Blood Count 8.1 K/mm3 (4.4-11.0)
[2024-03-05 13:04] LABS: AST(SGOT) 28 U/L (15-37); Alanine Aminotransfer ALT/SGPT 47 U/L (16-61); Albumin, Serum 3.8 g/dL (3.2-5.0); Alkaline Phosphatase 132 U/L (45-117); Anion Gap 7 (5-15); BUN 23 mg/dL (7-18); Chloride 106 mmol/L (98-107); Creatinine, Serum 1.15 mg/dL (0.70-1.30); EST Glomerular Filtration Rate 65 mL/min (>60); Est Glom Filt Rate - Afr Amer 79 mL/min (>60); Globulin 3.8 g/dL (2.2-4.2); Glucose 112 mg/dL (74-106); Potassium 4.6 mmol/L (3.5-5.1); Protein, Total 7.6 g/dL (6.4-8.2); Sodium Level 138 mmol/L (136-145)
== END | disposition home or self-care (01) ==
LOC: MTLAB 11:10
PROVIDERS: PCP Nurse Practitioner Family; Referring Provider Nurse Practitioner Family; Visit Provider Nurse Practitioner Family
DX: R25.2 Cramp and spasm (principal)
CPT/HCPCS: 36415; 80053; 85025

== ENCOUNTER → 2024-03-21 | Outpatient (CLI) | payer MEDICARE, OTHER, SELFPAY ==
--- NOTE | 2024-03-21 13:31 | CT_ITS ---
STUDY: CT ABDOMEN AND PELVIS WITHOUT CONTRAST REASON FOR EXAM: Male, 78 years old. ASSESS FOR ABNORMALITIES RADIATION DOSAGE (If Supplied By Facility): CTDIvol = ( 17.13 ) mGy, DLP = ( 877.13 ) mGycm TECHNIQUE: Transaxial images were obtained from the dome of the diaphragm to the symphysis pubis without oral contrast, and without intravenous contrast. Sagittal and coronal images were reconstructed. Individualized dose optimization techniques were used for this CT. COMPARISON: None. FINDINGS: The visualized lung bases are unremarkable. The visualized portions of the heart are within normal limits. Normal liver. Normal gallbladder and extrahepatic biliary system. Normal spleen. Normal pancreas. Normal bilateral adrenal glands. Nonspecific bilateral perinephric stranding. Normal visualized stomach. Normal small intestine. There are multiple colonic diverticula consistent with diverticulosis. The appendix is visualized and appears normal. There is diffuse atherosclerotic calcification of the abdominal aorta, without a demonstrated aneurysm. Normal inferior vena cava. Normal retroperitoneum. The urinary bladder is distended. Prostatic calcifications. Normal abdominal wall. There are diffuse degenerative changes of the visualized lumbar spine. CT/Abdomen/Pelvis without Cont IMPRESSION: Distention of the urinary bladder. Sigmoid diverticulosis with no radiographic signs of diverticulitis. Nonspecific bilateral perinephric stranding. Electronically Signed: Art Manning MD at 15:32 EST ,
== END | disposition home or self-care (01) ==
LOC: CT 13:29
PROVIDERS: PCP Nurse Practitioner Family; Referring Provider Nurse Practitioner Family; Visit Provider Nurse Practitioner Family
DX: R10.84 Generalized abdominal pain (principal); R19.8 Other specified symptoms and signs involving the digestive system and abdomen
CPT/HCPCS: 74176

== ENCOUNTER → 2024-04-04 | Outpatient (CLI) | payer MEDICARE, OTHER, SELFPAY ==
--- NOTE | 2024-04-04 10:29 | ART_ITS ---
Reason For Study: Assess YOANNA Procedure A bilateral lower extremity continuous wave Doppler with analog waveform analysis and ankle brachial indexes. Left Segmental Pressures Left brachial= 129mmHg. Left posterior tibial artery = 133mmHg. Left dorsalis pedis artery = 163mmHg. Left digit = 103 mmHg. The left dorsalis pedis waveforms are triphasic. The left posterior tibial artery waveforms are triphasic. Right Segmental Pressures Right brachial= 134mmHg. Right posterior tibial artery = 117mmHg. Right dorsalis pedis artery = 156mmHg. Right digit = 115 mmHg. The right dorsalis pedis waveforms are triphasic. The right posterior tibial artery waveforms are triphasic. Indices The right ankle brachial index by the dorsalis pedis is 1.16. The right ankle brachial index by the posterior tibial artery is 0.87. The right digital-brachial index is 0.86. The left ankle brachial index by the dorsalis pedis is 1.22. The left ankle brachial index by the posterior tibial artery is 0.99. The left digital-brachial index is 0.77. VL/Ankle Brachial Index Interpretation Summary Right YOANNA 1.16, normal. TBI and Doppler/PVR waveforms of the right ankle normal at rest. Left YOANNA 1.22, normal. TBI and Doppler/PVR waveforms of the left ankle normal a t rest. Ordering Physician: Ramandeep Lambert Referring Physician: RAMANDEEP LAMBERT CORN HUSK BALER-C Performed By: Jordana Leon RVT and Student
== END | disposition home or self-care (01) ==
LOC: CVS 10:27
PROVIDERS: PCP Nurse Practitioner Family; Referring Provider Nurse Practitioner Family; Visit Provider Nurse Practitioner Family
DX: R25.2 Cramp and spasm (principal); R09.89 Other specified symptoms and signs involving the circulatory and respiratory systems
CPT/HCPCS: 93922

== ENCOUNTER → 2024-09-14 | Outpatient (CLI) | payer MEDICARE, OTHER, SELFPAY ==
[2024-09-14 15:20] LABS: Hematocrit 42.7 % (40-54); Hemoglobin 14.3 g/dL (13.0-16.5); Immature Granulocytes Count 0.010 X10^3/uL (0.0-0.0); Mean Corp Hgb Conc 33.5 g/dL (32-36); Mean Corpuscular Volume 99.3 fL (80-94); Mean Platelet Vol. 10.6 fl (6.2-12.0); NRBC Flagged by Analyzer 0 % (0-5); Platelet Count 254 K/mm3 (150-450); RBC Distribution Width CV 12.6 % (11.6-14.6); RBC Distribution Width SD 46.2 fl (35.1-43.9); Red Blood Count 4.30 M/mm3 (4.6-6.2); White Blood Count 5.9 K/mm3 (4.4-11.0)
[2024-09-14 16:12] LABS: Anion Gap 13 (5-15); BUN 25 mg/dL (4-19); BUN/Creat Ratio 19.0 RATIO (10-20); Calcium,Total 9.4 mg/dL (7.6-11.0); Carbon Dioxide 22.7 mmol/L (21.0-32.0); Chloride 105 mmol/L (98-108); Glucose 147 mg/dL (70-99); Potassium 4.2 mmol/L (3.3-5.1)
== END | disposition home or self-care (01) ==
LOC: BFHLAB 13:45
PROVIDERS: PCP Nurse Practitioner Family; Visit Provider Nurse Practitioner Family
DX: R10.9 Unspecified abdominal pain (principal)
CPT/HCPCS: 36415; 80048; 85025

== ENCOUNTER → 2024-09-19 | Outpatient (CLI) | payer MEDICARE, OTHER, SELFPAY ==
--- NOTE | 2024-09-19 11:26 | US_ITS ---
PROCEDURE: KIDNEY AND BLADDER 09/19/2024 REASON FOR EXAM: LOW BACK PAIN TECHNIQUE: KIDNEY AND BLADDER COMPARISON: None FINDINGS: Kidneys: Normal renal sizes, parenchymal thicknesses, and echotextures. [place]: No evidence of hydronephrosis. Cysts or Masses: 9 mm x 10 mm x 9 mm left parapelvic renal cyst. Other: Nonobstructive left intrarenal calculi. The larger measures 4 mm x 4 mm x 2 mm. RIGHT Kidney Size: 12.9 cm x 5.4 cm x 6.4 cm Volume: 232.22 mL Cortical Thickness (if discernible): 15 mm (>6mm is normal) LEFT Kidney Size: 12.8 cm x 5.2 cm x 5.9 cm Volume: 206 mL Cortical Thickness (if discernible): 13 mm (>6mm is normal) US/Kidney and Bladder IMPRESSION: Left parapelvic renal cyst. There are 2 tiny nonobstructive left intrarenal calculi. Reading Location: [facility]
== END | disposition home or self-care (01) ==
LOC: US 11:24
PROVIDERS: PCP Nurse Practitioner Family; Referring Provider Nurse Practitioner Family; Visit Provider Nurse Practitioner Family
DX: M79.89 Other specified soft tissue disorders (principal); M54.50 Low back pain, unspecified
CPT/HCPCS: 76770

== ENCOUNTER → 2024-10-11 | Outpatient (CLI) | payer MEDICARE, OTHER, SELFPAY ==
--- NOTE | 2024-10-11 11:05 | RAD_ITS ---
PROCEDURE: L/S SPINE W BEND MIN 6 VW 10/11/2024 REASON FOR EXAM: LUMBAR DDD TECHNIQUE: L/S SPINE W BEND MIN 6 VW COMPARISON: None. FINDINGS: Mild degenerative levoscoliosis apex at L3. There are diffuse spondylotic changes. Findings are demonstrated to by diffuse disc space narrowing, osteophyte formation and degenerative endplate sclerosis. There is diffuse facet joint arthropathy with secondary bilateral neural foramina narrowing. No fracture or dislocation is seen. No aggressive lytic or blastic bony lesion is noted. RAD/L/S Spine w Bend Min 6 Vw IMPRESSION: Diffuse spondylosis. No evidence of instability on flexion/extension images. Reading Location: [facility]
--- OUTSIDE RECORDS SUMMARY | 2024-10-11 13:02 | XMS RPT_ITS | CCD ---
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 Zina Ferrell Primary Care Provider [phone] Dr. Zina Ferrell Referring Provider Marlin SHAREPOINT NET DEVELOPER, SHAREPOINT NET DEVELOPER-C [place] Attending Provider Marlin SHAREPOINT NET DEVELOPER, SHAREPOINT NET DEVELOPER-C [place] Referring Provider Zina Ferrell MD Primary Care Provider [phone] TYLER BAIRES Attending Unavailable ZINA FERRELL Primary Care Unavailable TYLER BAIRES Referring Unavailable ZINA FERRELL Primary Care Unavailable ZINA FERRELL Primary Care Unavailable TYLER BAIRES Referring Unavailable TYLER BAIRES Attending Unavailable ZINA FERRELL Primary Care Unavailable Zina Ferrell MD Primary Care Provider Dr. Zina Ferrell Referring Provider Unavailable Marlin SHAREPOINT NET DEVELOPER, SHAREPOINT NET DEVELOPER-C [place] Attending Provider Fausto, SHAREPOINT NET DEVELOPER-C Carrie Primary Care Provider Fausto SHAREPOINT NET DEVELOPER-C, Carrie Primary Care Provider [phone] Fausto SHAREPOINT NET DEVELOPER-C, Carrie Attending Provider Fausto SHAREPOINT NET DEVELOPER-C, Carrie Referring Provider Marlin SHAREPOINT NET DEVELOPER, [place] Attending Unavailable Marlin SHAREPOINT NET DEVELOPER, [place] Referring Unavailable Fausto, Carrie Primary Care Unavailable Mango Huddleston Attending Unavailable Fausto, Carrie Primary Care Unavailable Fausto, Carrie Referring Unavailable Fausto, Carrie Primary Care Unavailable Fausto, Carrie Attending Unavailable Fausto, Carrie Referring Unavailable Fausto, Carrie Primary Care Unavailable Fausto, Carrie Attending Unavailable Fausto, Carrie Primary Care Unavailable Fausto, Carrie Attending Unavailable Fausto, Carrie Referring Unavailable Fausto, Carrie Referring Unavailable Fausto, Carrie Primary Care Unavailable Fausto, Carrie Attending Unavailable Marlin SHAREPOINT NET DEVELOPER, Aazlea Attending Unavailable Marlin SHAREPOINT NET DEVELOPER, [place] Referring Unavailable Fausto, Carrie Primary Care Unavailable Fausto, Carrie Referring Unavailable Fausto, Carrie Primary Care Unavailable Fausto, Carrie Attending Unavailable Fausto, Carrie Primary Care Unavailable Fausto, Carrie Attending Unavailable Fausto, Carrie Referring Unavailable Allergies Allergy Classification Reported Allergen(s) Allergy Type Date of Onset Reaction(s) Facility (13 sources) Codeine; Translations: [CODEINE] Drug Allergy 7 Mental Status Change [facility] Work Phone: (8 sources) levoFLOXacin Drug Allergy 1 Nausea [facility] (5 sources) Bees; Translations: [BEES] Propensity to adverse reactions 6 [facility] Work Phone: (1 source) Codeine Drug Allergy 4 [facility] Repository (1 source) levoFLOXacin Drug Allergy 4 [facility] Medications Current Medications Medication Drug Class(es) Dates Sig (Normalized) Sig (Original) aspirin 81 mg chewable tablet (12 sources) Platelet Aggregation Inhibitor, Nonsteroidal Anti-inflammatory Drug Start: 09-30-2013 take 1 tablet by mouth once daily Aspirin 81 MG tablet,chewable Active 81 mg PO DAILY@0800 September 30, 2013 12:00am Start: 06-15-2005 take 1 tablet by lola th once daily ASPIRIN 81 MG TAB Take 81 mg by mouth once daily. 0 06/15/2005 Active Comment on above: Take 81 mg by mouth once daily. calcium ascorbate 500 mg oral tablet (8 sources) Start: 4 take 1 tablet by mouth once daily Ascorbate Calcium (Vitamin C) 500 MG tablet Active 500 mg PO DAILY September 30, 2013 12:00am ELDERBERRY FRUIT (2 sources) Start: 4 take 1 capsule by mouth once daily Elderberry Fruit 350 mg capsule Active 350 mg PO DAILY April 27, 2023 1:00am enteric contrast (will be provided with radiology test) (1 source) Start: 2 End: 2 take 1 dose by mouth once, then [...] guidelines 1 Each 0 12/24/2021 12/24/2021 Active Comment on above: Take 1 Each by mouth one time only for [address] ABD/PEL WO Routine order Administer, As Directed One Time Only, via Oral, Rectal, both Oral and Rectal, Enteric Tube, Stoma or Indwelling Catheter, Enteric Contrast as designated per enteric contrast guidelines glucosamine sulfate 500 mg oral tablet (6 sources) Start: 4 take 1 tablet by mouth once daily Glucosamine Sulfate (Glucosamine) 500 mg tablet Active 500 mg PO DAILY April 27, 2023 1:00am administer with a meal take 0.5 tablet by mouth once da cathy Glucosamine 1,000 mg tab Take 0.5 tablets by mouth once daily. 0 Active Comment on above: Take 0.5 tablets by mouth once daily. Magnesium (2 sources) Start: 4 take 2 tablets by mouth once daily Magnesium 250 mg tablet Active 500 mg PO DAILY April 27, 2023 1:00am metoprolol tartrate 25 mg oral tablet (12 sources) beta-Adrenergic Obi Start: 4 take 1 tablet by mouth twice daily Metoprolol Tartrate 25 MG tablet Active 25 mg PO TWICE A DAY September 30, 2013 12:00am Comment on above: Take 25 mg by mouth twice daily. Pantoprazole 40 mg tablet,delayed release (DR/EC) (2 sources) Start: 4 take 1 tablet by mouth once daily Pantoprazole 40 mg tablet,delayed release (DR/EC) Active 40 mg PO DAILY April 27, 2023 1:00am potassium gluconate 2.5 meq oral tablet (2 sources) Start: 4 take 1 tablet by mouth once daily Potassium Gluconate 595 mg (99 mg) tablet Active 595 mg PO DAILY April 27, 2023 1:00am simvastatin 20 mg oral tablet (12 sources) HMG-CoA Reductase Inhibitor Start: 2 take 1 tablet by mouth at bedtime Simvastatin 20 MG tablet Active 20 mg PO AT BEDTIME September 30, 2013 12:00am Comment on above: Take 1 tablet by lola th daily at bedtime. vitamin b12 1 mg oral tablet (2 sources) Vitamin B12 Start: Cyanocobalamin (Vitamin B-12) 1,000 mcg tablet Active 500 ug PO DAILY April 27, 2023 1:00am Completed/Discontinued Medications Medication Drug Class(es) Dates Sig (Normalized) Sig (Original) acetaminophen 325 mg / HYDROcodone bitartrate 5 mg oral tablet (16 sources) Opioid Agonist Start: 10-24-2015 End: 04-27-2023 Hydrocodone-Acetami nophen 1 TABLET tablet Discontinued 1 {tbl} PO EVERY 4 HOURS NEEDED as needed for Pain 20 2 September 18, 2019 September 19, 2019 12:00am September 20, 2019 12:02am Back pain Dorsalgia, unspecified Start: 10-24-2015 End: 09-20-2019 take 1 tablet by mouth every four hours as needed Hydrocodone-Acetaminophen Discontinued 1 TABLET PO EVERY 4 HOURS NEEDED 20 2 September 18, 2019 September 19, 2019 11:02pm ascorbic acid 500 mg oral tablet (4 sources) Vitamin C take 1 tablet by mouth once daily ascorbic acid, vitamin C, (VITAMIN C) 500 mg tablet Take 500 mg by mouth once daily. 0 Active Comment on above: Take 500 mg by mouth once daily. atorvastatin 40 mg oral tablet (8 sources) HMG-CoA Reductase Inhibitor Start: 014 End: take 1 tablet by mouth at bedtime Atorvastatin 40 MG tablet Discontinued 40 mg PO AT BEDTIME 30 0 October 01, 2013 12:00am April 27, 2023 2:59pm azithromycin 250 mg oral tablet (2 sources) Macrolide Antimicrobial Start: End: Azithromycin 250 mg tablet Discontinued 250 mg PO daily 6 0 April 27, 2023 1:00am February 14, 2024 1:05pm 2 tablets today, then 1 tablet daily on days 2 through 5 baclofen 10 mg oral tablet (2 sources) gamma-Aminobutyric Acid-ergic Agonist Start: End: take 1 tablet by mouth three times daily Baclofen 10 mg tablet Discontinued 10 mg PO THREE TIMES A DAY 30 0 September 17, 2023 12:00am February 14, 2024 1:06pm cyclobenzaprine hydrochloride 10 mg oral tablet (8 sources) Muscle Relaxant Start: End: take 1 tablet by mouth three times daily Cyclobenzaprine 10 MG tablet Discontinued 10 mg PO THREE TIMES A DAY October 24, 2015 12:00am April 27, 2023 2:59pm diazePAM 5 mg oral tablet (8 sources) Benzodiazepine Start: End: take 1 tablet by mouth every eight hours as needed for muscle spasms Diazepam 5 MG tablet Discontinued 5 mg PO EVERY 8 HOURS as needed for Muscle Spasm September 18, 2019 12:00am April 27, 2023 2:59pm esomeprazole 40 mg delayed release oral capsule (4 sources) Proton Pump Inhibitor take 1 capsule by mouth once daily esomeprazole (NEXIUM) 40 mg capsule Take 40 mg by mouth once daily. 0 Active Comment on above: Take 40 mg by mouth once daily. magnesium oxide 250 mg oral tablet (4 sources) Start: take 1 tablet by mouth once daily Magnesium Oxide 250 mg magnesium tab Take 250 mg by mouth once daily. 0 07/05/2014 Active Comment on above: Take 250 mg by mouth once daily. mecobalamin (4 sources) Start: mecobalamin (B12 ACTIVE ORAL) once daily. 0 03/08/2019 Active Comment on above: once daily. omeprazole 20 mg delayed release oral capsule (8 sources) Proton Pump Inhibitor Start: End: take 1 capsule by mouth once daily Omeprazole 20 MG capsule Discontinued 20 mg PO DAILY September 30, 2013 12:00am April 27, 2023 2:59pm pantoprazole 40 mg delayed release oral tablet (4 sources) Proton Pump Inhibitor Start: take 1 tablet by mouth once daily pantoprazole DR (PROTONIX) 40 mg tablet Take 40 mg by mouth once daily. 0 06/11/2019 Active Comment on above: Take 40 mg by mouth once daily. Potassium Acetate (4 sources) potassium acetat e once daily. 99 mg daily 0 Active Comment on above: once daily. 99 mg da cathy predniSONE 20 mg oral tablet (4 sources) Start: End: take 1 tablet by mouth twice daily Prednisone 20 mg tablet Discontinued 20 mg PO TWICE A DAY 10 5 0 September 17, 2023 12:00am September 21, 2023 12:00am September 22, 2023 12:05am Start: 04-27-2023 End: 09-17-2023 take 1 tablet by mouth twice daily Prednisone 10 mg tablet Discontinued 10 mg PO TWICE A DAY 10 0 April 27, 2023 1:00am September 17, 2023 12:52pm telmisartan 20 mg oral tablet (14 sources) Angiotensin 2 Receptor Obi Start: 07-28-2011 End: 04-27-2023 take 1 tablet by mouth once daily Telmisartan (Micardis) 20 MG tablet Discontinued 20 mg PO DAILY September 30, 2013 12:00am April 27, 2023 2:58pm Comment on above: Take 1 tablet by lola th once daily. Problems Active Problems Problem Classification Problem Date Documented Da te Episodic/Chronic Abdominal pain (7 sources) Right inguinal pain; Translations: [Right lower quadrant pain] Onset: 6 01-05-2016 Episodic Acute myocardial infarction (8 sources) Myocardial infarction; Translations: [Non-ST elevation (NSTEMI) myocardial infarction] 10-24-2015 Chronic Cardiac dysrhythmias (16 sources) Paroxysmal supraventricular tachycardia; Translations: [Supraventricular tachycardia] 10-24-2015 Chronic Chronic obstructive pulmonary disease and bronchiectasis (4 sources) Chronic bronchitis; Translations: [Unspecified chronic bronchitis] 03-19-2008 Chronic Disorders of lipid metabolism (12 sources) Dyslipidemia; Translations: [Hyperlipidemia, unspecified] 07-19-2010 Chronic Esophageal disorders (4 sources) Gastroesophageal reflux disease; Translations: [Gastro-esophageal reflux disease without esophagitis] Onset: 5 07-25-2014 Chronic Essential hypertension (12 sources) Benign hypertension; Translations: [Essential (primary) hypertension] Onset: 1 07-20-2010 Chronic Other connective tissue disease (2 sources) Spasm of cervical paraspinous muscle; Translations: [Other muscle spasm] 09-17-2023 Episodic Other connective tissue disease (1 source) Other specified soft tissue disorders; Translations: [Other specified soft tissue disorders] Onset: Episodic Other gastrointestinal disorders (2 sources) Finding of [...] degeneration, lumbosacral region] Onset: 8 07-19-2010 Chronic Spondylosis; intervertebral disc disorders; other back problems (2 sources) Torticollis; Translations: [Torticollis] 09-17-2023 Episodic Substance-related disorders (12 sources) Tobacco dependence, continuous; Translations: [Nicotine dependence, unspecified, with unspecified nicotine-induced disorders] Onset: 5 Chronic Past or Other Problems Problem Classification Problem Date Documented Da te Episodic/Chronic Abdominal hernia (8 sources) Umbilical hernia; Translations: [Umbilical hernia without obstruction or gangrene] Onset: 01-24-2015 01-24-2015 Episodic Diabetes mellitus without complication (4 sources) [...] spur, unspecified foot] Onset: 03-31-2011 03-31-2011 Episodic Other connective tissue disease (1 source) Cramp and spasm; Translations: [Cramp and spasm] Onset: 04-19-2024 Episodic Other non-traumatic joint disorders (1 source) Pain in left knee; Translations: [Pain in left knee] Onset: 01-19-2024 Episodic Other screening for suspected conditions (not mental disorders or infectious disease) (14 sources) Patient encounter status; Translations: [Encounter for screening for malignant neoplasm of respiratory organs] Onset: 03-16-2024 Episodic Residual codes; unclassified (4 sources) Tobacco use and exposure - finding; Translations: [Tobacco use] Onset: 01-24-2015 01-24-2015 Episodic Screening and history of mental health and substance abuse codes (1 source) Personal history of nicotine dependence; Translations: [Personal history of nicotine dependence] Onset: 03-08-2024 Episodic Results Test Name Value Interpretation Reference Range Facility [facility] [address] [facility] Imaging Services [address] [place], [place] [address] Kidney and Bladder MR#: [id number] Acct: [id number] Name: LIZZY BARAJAS Rep #: [id number] : 1945 M 79 From: Art mendez MD PCP: LISANDRO Crane Status: [facility] CLI Study: Kidney and Bladder Date of Exam: 09/19/24 Exam# [id number] Ordering Dr: Carrie Garcia PROCEDURE: KIDNEY AND BLADDER 09/19/2024 REASON FOR EXAM: LOW BACK PAIN TECHNIQUE: KIDNEY AND BLADDER COMPARISON: None FINDINGS: Kidneys: Normal renal sizes, parenchymal thicknesses, and echotextures. [place]: No evidence of hydronephrosis. Cysts or Masses: 9 mm x 10 mm x 9 mm left parapelvic renal cyst. Other: Nonobstructive left intrarenal calculi. The larger measures 4 mm x 4 mm x 2 mm. RIGHT Kidney Size: 12.9 cm x 5.4 cm x 6.4 cm Volume: 232.22 mL Cortical Thickness (if discernible): 15 mm (>6mm is normal) LEFT Kidney Size: 12.8 cm x 5.2 cm x 5.9 cm Volume: 206 mL Cortical Thickness (if discernible): 13 mm (>6mm is normal) US/Kidney and Bladder IMPRESSION: Left parapelvic renal cyst. There are 2 tiny nonobstructive left intrarenal calculi. 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 Normal [facility] Absolute lymphocyte countOrd ered By: Carrie Garcia on 09-14-2024 Lymphocytes Auto (Unsp spec) [#/Vol] 1.62 10*3/uL 0.83-4.51 [facility] Absolute neutrophil countOrd ered By: Carrie Garcia on 09-14-2024 Neutrophils (Bld) [#/Vol] 3.6 10*3/uL 2.0-7.7 [facility] Anion gap in Serum or Plasma Ordered By: Carrie Garcia on 09-14-2024 Anion gap [Moles/Vol] 13 mmol/L 5-15 [facility] Automated lymphocyte count a s percentage of total leukocytesOrdered By: Carrie Garcia on 09-14-2024 Lymphocytes/100 WBC Auto (Unsp spec) 27.4 % 19-41 [facility] BUN/creatinine ratioOrdered By: Carrie Garcia on 09-14-2024 Urea nitrogen/Creatinine [Mass ratio] 19.0 mg/mg 10- [facility] Basic Metabolic Profile (BMP )on 09-14-2024 BUN/CRE 19.0 RATIO Normal 10-20 [facility] Comment on above: Performed By: #### L 100.0100, L500.2500 #### [facility] [address] [place], [address] Calcium [Mass/Vol] 9.4 mg/dL Normal 7.6-11.0 [facility] Comment on above: Performed By: #### L 100.0100, L500.2500 #### [facility] [address] [place], [address] Chloride [Moles/Vol] 105 mmol/L Normal 98-108 [facility] Comment on above: Performed By: #### L 100.0100, L500.2500 #### [facility] [address] [place], [address] CO2 [Moles/Vol] 22.7 mmol/L Normal 21.0-32.0 [facility] Comment on above: Performed By: #### L 100.0100, L500.2500 #### [facility] [address] [place], [address] Creatinine [Mass/Vol] 1.30 mg/dL High 0.70-1.20 [facility] Comment on above: Performed By: #### L 100.0100, L500.2500 #### [facility] [address] [place], [address] GAP 13 Normal 5-15 [facility] Comment on above: Performed By: #### L 100.0100, L500.2500 #### [facility] [address] [place], [address] GFR/1.73 sq M.predicted among non-blacks MDRD (S/P/Bld) [Vol rate/Area] 56 mL/min/{1.73_m2} Low >60 [facility] Comment on above: Result Comment: mL/m in/1.73m2 CKD-EPI Creatinine Equation (2020) Performed By: #### L 100.0100, L500.2500 #### [facility] [address] [place], [address] Glucose [Mass/Vol] 147 mg/dL High 70-99 [facility] Comment on above: Performed By: #### L 100.0100, L500.2500 #### [facility] [address] [place], [address] Potassium [Moles/Vol] 4.2 mmol/L Normal 3.3-5.1 [facility] Comment on above: Performed By: #### L 100.0100, L500.2500 #### [facility] [address] [place], [address] Sodium [Moles/Vol] 140 mmol/L Normal 133-145 [facility] Comment on above: Performed By: #### L 100.0100, L500.2500 #### [facility] [address] [place], [address] Urea nitrogen [Mass/Vol] 25 mg/dL High 4-19 [facility] Comment on above: Performed By: #### L 100.0100, L500.2500 #### [facility] [address] [place], [address] Basophil percentageOrdered B y: Carrie Garcia on 09-14-2024 Basophils/100 WBC (Bld) 1.4 % High 0-1 [facility] CBC W/Diff, Automatedon 09-04 Absolute Lymph 1.62 X10 3/uL Normal 0.83-4.51 [facility] Comment on above: Performed By: #### L 100.0100, L500.2500 #### [facility] [address] [place], [address] Absolute Neut 3.6 X10 3/uL Normal 2.0-7.7 [facility] Comment on above: Performed By: #### L 100.0100, L500.2500 #### [facility] [address] [place], [address] Basophils/100 WBC (Bld) 1.4 % High 0-1 [facility] Comment on above: Performed By: #### L 100.0100, L500.2500 #### [facility] [address] [place], [address] Eosinophils/100 WBC (Bld) 2.2 % Normal 0-5 [facility] Comment on above: Performed By: #### L 100.0100, L500.2500 #### [facility] [address] [place], [address] Erythrocyte distribution width (RBC) [Ratio] 12.6 % Normal 11.6-14.6 [facility] Comment on above: Performed By: #### L 100.0100, L500.2500 #### [facility] [address] [place], [address] Hematocrit (Bld) [Volume fraction] 42.7 % Normal 40-54 [facility] Comment on above: Performed By: #### L 100.0100, L500.2500 #### [facility] [address] [place], [address] Hemoglobin (Bld) [Mass/Vol] 14.3 g/dL Normal 13.0-16.5 [facility] Comment on above: Performed By: #### L 100.0100, L500.2500 #### [facility] [address] [place], [address] IG% 0.200 Normal 0.0-0.9 [facility] Comment on above: Result Comment: IG% - Immature Granulocytes (promyelocytes, myelocytes and metamyelocytes) > 1% indicates that a LEFT SHIFT is Present. Performed By: #### L 100.0100, L500.2500 #### [facility] [address] [place], [address] Lymphocytes/100 WBC (Bld) 27.4 % Normal 19-41 [facility] Comment on above: Performed By: #### L 100.0100, L500.2500 #### [facility] [address] [place], [address] MCH (RBC) [Entitic mass] 33.3 pg High 27.0-32.0 [facility] Comment on above: Performed By: #### L 100.0100, L500.2500 #### [facility] [address] [place], [address] MCHC (RBC) [Mass/Vol] 33.5 g/dL Normal 32-36 [facility] Comment on above: Performed By: #### L 100.0100, L500.2500 #### [facility] [address] [place], [address] MCV (RBC) [Entitic vol] 99.3 fL High 80-94 [facility] Comment on above: Performed By: #### L 100.0100, L500.2500 #### [facility] [address] [place], [address] Monocytes/100 WBC (Bld) 8.1 % Normal 0-10 [facility] Comment on above: Performed By: #### L 100.0100, L500.2500 #### [facility] [address] [place], [address] Neutrophils/100 WBC (Bld) 60.7 % Normal 47-70 [facility] Comment on above: Performed By: #### L 100.0100, L500.2500 #### [facility] [address] [place], [address] Nucleated RBC (Bld) [#/Vol] 0 10*3/uL Normal 0-5 [facility] Comment on above: Performed By: #### L 100.0100, L500.2500 #### [facility] [address] [place], [address] Platelet mean volume (Bld) [Entitic vol] 10.6 fL Normal 6.2-12.0 [facility] Comment on above: Performed By: #### L 100.0100, L500.2500 #### [facility] [address] [place], [address] Platelets (Bld) [#/Vol] 254 10*3/uL Normal 150-450 [facility] Comment on above: Performed By: #### L 100.0100, L500.2500 #### [facility] [address] [place], [address] RBC (Bld) [#/Vol] 4.30 10*6/uL Low 4.6-6.2 [facility] Comment on above: Performed By: #### L 100.0100, L500.2500 #### [facility] [address] [place], [address] RDW SD 46.2 fl High 35.1-43.9 [facility] Comment on above: Performed By: #### L 100.0100, L500.2500 #### [facility] [address] [place], [address] WBC (Bld) [#/Vol] 5.9 10*3/uL Normal 4.4-11.0 [facility] Comment on above: Performed By: #### L 100.0100, L500.2500 #### [facility] [address] [place], [address] Carbon dioxide, total [Moles /volume] in Central venous bloodOrdered By: Carrie Garcia on 09-14-2024 CO2 [Moles/Vol] 22.7 mmol/L 21.0-32.0 [facility] Chloride assayOrdered By: Ra juwan Garcia on 09-14-2024 Chloride [Moles/Vol] 105 mmol/L 98-108 [facility] Eosinophil percentageOrdered By: Carrie Garcia on 09-14-2024 Eosinophils/100 WBC (Bld) 2.2 % 0-5 [facility] Erythrocyte distribution wid th ratioOrdered By: Carrie Garcia on 09-14-2024 Erythrocyte distribution width (RBC) [Ratio] 12.6 % 11.6-14.6 [facility] Erythrocyte distribution wid th standard deviationOrdered By: Carrie Garcia on 09-14-2024 Erythrocyte distribution width (RBC) [Ratio] 46.2 fl High 35.1-43.9 [facility] Glomerular filtration rate ( GFR) estimation/1.73 sq m using serum, plasma, or whole bOrdered By: Carrie Garcia on 09-14-2024 GFR/1.73 sq M.predicted among non-blacks MDRD (S/P/Bld) [Vol rate/Area] 56 mL/min/{1.73_m2} Low >60 [facility] Comment on above: mL/min/1.73m2 CKD-EP I Creatinine Equation (2020) Hematocrit Auto (Bld) [Volum e fraction]Ordered By: Carrieberna Garcia on 09-14-2024 Hematocrit (Bld) [Volume fraction] 42.7 % 40-54 [facility] Hemoglobin measurementOrdere d By: Carrie Garcia on 09-14-2024 Hemoglobin (Bld) [Mass/Vol] 14.3 g/dL 13.0-16.5 [facility] Immature granulocytes/100 WB C Auto (Bld)Ordered By: Carrieberna Garcia on 09-14-2024 Immature granulocytes/100 WBC (Bld) 0.200 % 0.0-0.9 [facility] Comment on above: IG% - Immature Granu locytes (promyelocytes, myelocytes and metamyelocytes) > 1% indicates that a LEFT SHIFT is Present. MCV (mean corpuscular volume ) determinationOrdered By: Carrie Garcia on 09-14-2024 MCV (RBC) [Entitic vol] 99.3 fL High 80-94 [facility] Mean corpuscular hemoglobin (MCH) determinationOrdered By: Carrieberna Garcia on 09-14-2024 MCH (RBC) [Entitic mass] 33.3 pg High 27.0-32.0 [facility] Mean corpuscular hemoglobin concentration (MCHC) determinationOrdered By: Carrieberna Garcia on 09-14-2024 MCHC (RBC) [Mass/Vol] 33.5 g/dL 32-36 [facility] Mean platelet volume determi nationOrdered By: Carrieberna Garcia on 09-14-2024 Platelet mean volume (Bld) [Entitic vol] 10.6 fL 6.2-12.0 [facility] Monocyte percentageOrdered B y: Carrie Garcia on 09-14-2024 Monocytes/100 WBC (Bld) 8.1 % 0-10 [facility] Neutrophil percentageOrdered By: Carrieberna Garcia on 09-14-2024 Neutrophils/100 WBC (Bld) 60.7 % 47-70 [facility] Nucleated red blood cell per centageOrdered By: Carrie Garcia on 09-14-2024 Nucleated RBC/100 WBC (Bld) [Ratio] 0 % 0-5 [facility] Platelet countOrdered By: Ra juwan Garcia on 09-14-2024 Platelets (Bld) [#/Vol] 254 10*3/uL 150-450 [facility] Potassium measurement (mass/ volume)Ordered By: Carrie Garcia on 09-14-2024 Potassium (Unsp spec) [Mass/Vol] 4.2 mmol/L 3.3-5.1 [facility] RBC Auto (Bld) [#/Vol]Ordere d By: Carrie Garcia on 09-14-2024 RBC (Bld) [#/Vol] 4.30 10*6/uL Low 4.6-6.2 [facility] Serum creatinine measurement (mass/volume)Ordered By: Carrie Garcia on 09-14-2024 Creatinine [Mass/Vol] 1.30 mg/dL High 0.70-1.20 [facility] Serum glucose measurement (m ass/volume)Ordered By: Carrie Garcia on 09-14-2024 Glucose [Mass/Vol] 147 mg/dL High 70-99 [facility] Serum or plasma calcium vandana urement (mass/volume)Ordered By: Carrie Garcia on 09-14-2024 Calcium [Mass/Vol] 9.4 mg/dL 7.6-11.0 [facility] Serum or plasma urea nitroge n measurement (mass/volume)Ordered By: Carrie Garcia on 09-14-2024 Urea nitrogen [Mass/Vol] 25 mg/dL High 4-19 [facility] Sodium levelOrdered By: Luma Garcia on 09-14-2024 Sodium [Moles/Vol] 140 mmol/L 133-145 [facility] White blood cell (WBC) count Ordered By: Carrie Garcia on 09-14-2024 WBC (Bld) [#/Vol] 5.9 10*3/uL 4.4-11.0 [facility] Ankle Brachial Indexon 04-04 Ankle Brachial Index [facility] [address] [place] [address] Ankle Brachial Index 04/04/24 1050 MR#: [id number] Acct: [id number] Name: LIZZY BARAJAS Rep #: [id number] : 1945 78 From: Mango Huddleston MD Attending Dr: LISANDRO Crane Status: REG CL I Ordering Dr: Carrie Garcia Date: 04/04/24 Location: CVS Sex: M C Admitted: Reason For Study: Assess YOANNA Procedure A bilateral lower extremity continuous wave Doppler with analog waveform analysis and ankle brachial indexes. Left Segmental Pressures Left brachial= 129mmHg. Left posterior tibial artery = 133mmHg. Left dorsalis pedis artery = 163mmHg. Left digit = 103 mmHg. The left dorsalis pedis waveforms are triphasic. The left posterior tibial artery waveforms are triphasic. Right Segmental Pressures Right brachial= 134mmHg. Right posterior tibial artery = 117mmHg. Right dorsalis pedis artery = 156mmHg. Right digit = 115 mmHg. The right dorsalis pedis waveforms are triphasic. The right posterior tibial artery waveforms are triphasic. Indices The right ankle brachial index by the dorsalis pedis is 1.16. The right ankle brachial index by the posterior tibial artery is 0.87. The right digital-brachial index is 0.86. The left ankle brachial index by the dorsalis pedis is 1.22. The left ankle brachial index by the posterior tibial artery is 0.99. The left digital-brachial index is 0.77. VL/Ankle Brachial Index Interpretation Summary Right YOANNA 1.16, normal. TBI and Doppler/PVR waveforms of the right ankle normal at rest. Left YOANNA 1.22, normal. TBI and Doppler/PVR waveforms of the left ankle normal at rest. Ordering Physician: Carrie Garcia Referring Physician: CARRIE GARCIA Performed By: Jordana Leon RVT and Student 04/04/24 1600 Date Mango Huddleston MD CC: [employer]-C Carrie Garcia Date Dictated: 04/04/24 1050 Date Transcribed: 04/04/24 1600 Dye House Worker: Signed Normal [facility] Abdomen/Pelvis without Conto n 03-21-2024 Abdomen/Pelvis without Cont [facility] Imaging Services [address] [place], [place] [address] Abdomen/Pelvis without Cont MR#: [id number] Acct: [id number] Name: LIZZY BARAJAS Rep #: [id number] : 1945 M 78 From: Art mendez MD PCP: LISANDRO Crane Status: REG CLI Study: Abdomen/Pelvis without Cont Date of Exam: 03/07 07/29 Exam# [id number] Ordering Dr: Carrie Garcia [id number] STUDY: CT ABDOMEN AND PELVIS WITHOUT CONTRAST REASON FOR EXAM: Male, 78 years old. ASSESS FOR ABNORMALITIES RADIATION DOSAGE (If Supplied By Facility): CTDIvol = ( 17.13 ) mGy, DLP = ( 877.13 ) mGycm TECHNIQUE: Transaxial images were obtained from the dome of the diaphragm to the symphysis pubis without oral contrast, and without intravenous contrast. Sagittal and coronal images were reconstructed. Individualized dose optimization techniques were used for this CT. COMPARISON: None. FINDINGS: The visualized lung bases are unremarkable. The visualized portions of the heart are within normal limits. Normal liver. Normal gallbladder and extrahepatic biliary system. Normal spleen. Normal pancreas. Normal bilateral adrenal glands. Nonspecific bilateral perinephric stranding. Normal visualized stomach. Normal small intestine. There are multiple colonic diverticula consistent with diverticulosis. The appendix is visualized and appears normal. There is diffuse atherosclerotic calcification of the abdominal aorta, without a demonstrated aneurysm. Normal inferior vena cava. Normal retroperitoneum. The urinary bladder is distended. Prostatic calcifications. Normal abdominal wall. There are diffuse degenerative changes of the visualized lumbar spine. CT/Abdomen/Pelvis without Cont IMPRESSION: Distention of the urinary bladder. Sigmoid diverticulosis with no radiographic signs of diverticulitis. Nonspecific bilateral perinephric stranding. Electronically Signed: Art Manning MD at 15:32 EST , CC: LISANDRO Garcia Dye House Worker: Signed Normal [facility] CBC W/Diff, Automatedon 12-3 0-2023 Absolute Lymph 3.19 X10 3/uL Normal 0.83-4.51 [facility] Comment on above: Performed By: #### L 100.0100, L500.4050 #### [facility] [address] [place], [address] Absolute Neut 4.1 X10 3/uL Normal 2.0-7.7 [facility] Comment on above: Performed By: #### L 100.0100, L500.4050 #### [facility] [address] [place], [address] Basophils/100 WBC (Bld) 1.1 % High 0-1 [facility] Comment on above: Performed By: #### L 100.0100, L500.4050 #### [facility] [address] [place], [address] Eosinophils/100 WBC (Bld) 2.1 % Normal 0-5 [facility] Comment on above: Performed By: #### L 100.0100, L500.4050 #### [facility] [address] [place], [address] Erythrocyte distribution width (RBC) [Ratio] 12.6 % Normal 11.6-14.6 [facility] Comment on above: Performed By: #### L 100.0100, L500.4050 #### [facility] [address] [place], [address] Hematocrit (Bld) [Volume fraction] 45.3 % Normal 40-54 [facility] Comment on above: Performed By: #### L 100.0100, L500.4050 #### [facility] [address] [place], [address] Hemoglobin (Bld) [Mass/Vol] 14.5 g/dL Normal 13.0-16.5 [facility] Comment on above: Performed By: #### L 100.0100, L500.4050 #### [facility] [address] [place], [address] IG% 0.200 Normal 0.0-0.9 [facility] Comment on above: Result Comment: IG% - Immature Granulocytes (promyelocytes, myelocytes and metamyelocytes) > 1% indicates that a LEFT SHIFT is Present. Performed By: #### L 100.0100, L500.4050 #### [facility] [address] [place], [address] Lymphocytes/100 WBC (Bld) 39.6 % Normal 19-41 [facility] Comment on above: Performed By: #### L 100.0100, L500.4050 #### [facility] [address] [place], [address] MCH (RBC) [Entitic mass] 32.1 pg High 27.0-32.0 [facility] Comment on above: Performed By: #### L 100.0100, L500.4050 #### [facility] [address] [place], [address] MCHC (RBC) [Mass/Vol] 32.0 g/dL Normal 32-36 [facility] Comment on above: Performed By: #### L 100.0100, L500.4050 #### [facility] [address] [place], [address] MCV (RBC) [Entitic vol] 100.2 fL High 80-94 [facility] Comment on above: Performed By: #### L 100.0100, L500.4050 #### [facility] [address] [place], [address] Monocytes/100 WBC (Bld) 6.6 % Normal 0-10 [facility] Comment on above: Performed By: #### L 100.0100, L500.4050 #### [facility] [address] [place], [address] Neutrophils/100 WBC (Bld) 50.4 % Normal 47-70 [facility] Comment on above: Performed By: #### L 100.0100, L500.4050 #### [facility] [address] [place], [address] Nucleated RBC (Bld) [#/Vol] 0 10*3/uL Normal 0-5 [facility] Comment on above: Performed By: #### L 100.0100, L500.4050 #### [facility] [address] [place], [address] Platelet mean volume (Bld) [Entitic vol] 9.7 fL Normal 6.2-12.0 [facility] Comment on above: Performed By: #### L 100.0100, L500.4050 #### [facility] [address] [place], [address] Platelets (Bld) [#/Vol] 233 10*3/uL Normal 150-450 [facility] Comment on above: Performed By: #### L 100.0100, L500.4050 #### [facility] [address] [place], [address] RBC (Bld) [#/Vol] 4.52 10*6/uL Low 4.6-6.2 [facility] Comment on above: Performed By: #### L 100.0100, L500.4050 #### [facility] [address] [place], [address] RDW SD 47.2 fl High 35.1-43.9 [facility] Comment on above: Performed By: #### L 100.0100, L500.4050 #### [facility] [address] [place], [address] WBC (Bld) [#/Vol] 8.1 10*3/uL Normal 4.4-11.0 [facility] Comment on above: Performed By: #### L 100.0100, L500.4050 #### [facility] [address] [place], [address] Comprehensive Metabolic Prof [facility] 03-05-2024 Albumin [Mass/Vol] 3.8 g/dL Normal 3.2-5.0 [facility] Comment on above: Performed By: #### L 100.0100, L500.4050 #### [facility] [address] [place], [address] Albumin/Globulin [Mass ratio] 1.0 {ratio} Normal 0.9-2.4 [facility] Comment on above: Performed By: #### L 100.0100, L500.4050 #### [facility] [address] [place], [address] ALK P 132 U/L High 45-117 [facility] Comment on above: Performed By: #### L 100.0100, L500.4050 #### [facility] [address] [place], [address] ALT [Catalytic activity/Vol] 47 U/L Normal 16-61 [facility] Comment on above: Performed By: #### L 100.0100, L500.4050 #### [facility] [address] [place], [address] AST [Catalytic activity/Vol] 28 U/L Normal 15-37 [facility] Comment on above: Performed By: #### L 100.0100, L500.4050 #### [facility] [address] [place], [address] Bilirubin [Mass/Vol] 0.50 mg/dL Normal 0.20-1.00 [facility] Comment on above: Result Comment: For patients on eltrombopag therapy, use of Dimension Moffat TBIL is not recommended. Performed By: #### L 100.0100, L500.4050 #### [facility] [address] [place], [address] BUN/CRE 20.0 RATIO Normal 10-20 [facility] Comment on above: Performed By: #### L 100.0100, L500.4050 #### [facility] [address] [place], [address] CA,Total 9.0 mg/dL Normal 8.5-10.1 [facility] Comment on above: Performed By: #### L 100.0100, L500.4050 #### [facility] [address] [place], [address] Chloride [Moles/Vol] 106 mmol/L Normal 98-107 [facility] Comment on above: Performed By: #### L 100.0100, L500.4050 #### [facility] [address] [place], [address] CO2 [Moles/Vol] 25.0 mmol/L Normal 21.0-32.0 [facility] Comment on above: Performed By: #### L 100.0100, L500.4050 #### [facility] [address] [place], [address] Creatinine [Mass/Vol] 1.15 mg/dL Normal 0.70-1.30 [facility] Comment on above: Result Comment: The validity of the calculated GFR GFRAA in patients over 70 years has not been determined. Clinical correlation is essential. Performed By: #### L 100.0100, L500.4050 #### [facility] [address] [place], [address] EST GFR - AA 79 mL/min Normal >60 [facility] Comment on above: Result Comment: Afri can Russian GFR Calc Performed By: #### L 100.0100, L500.4050 #### [facility] [address] [place], [address] GAP 7 Normal 5-15 [facility] Comment on above: Performed By: #### L 100.0100, L500.4050 #### [facility] [address] [place], [address] GFR/1.73 sq M.predicted among non-blacks MDRD (S/P/Bld) [Vol rate/Area] 65 mL/min/{1.73_m2} Normal >60 [facility] Comment on above: Result Comment: Non- GFR Calc Performed By: #### L 100.0100, L500.4050 #### [facility] [address] [place], [address] Globulin (S) [Mass/Vol] 3.8 g/dL Normal 2.2-4.2 [facility] Comment on above: Performed By: #### L 100.0100, L500.4050 #### [facility] [address] [place], [address] Glucose [Mass/Vol] 112 mg/dL High 74-106 [facility] Comment on above: Result Comment: Fast ing Glucose result from 100 to 125 mg/dL suggests IMPAIRED HOMEOSTASIS per A.D.A. criteria. Performed By: #### L 100.0100, L500.4050 #### [facility] [address] [place], [address] Potassium [Moles/Vol] 4.6 mmol/L Normal 3.5-5.1 [facility] Comment on above: Performed By: #### L 100.0100, L500.4050 #### [facility] [address] [place], [address] Sodium [Moles/Vol] 138 mmol/L Normal 136-145 [facility] Comment on above: Performed By: #### L 100.0100, L500.4050 #### [facility] [address] [place], [address] T PROT 7.6 g/dL Normal 6.4-8.2 [facility] Comment on above: Performed By: #### L 100.0100, L500.4050 #### [facility] [address] [place], [address] Urea nitrogen [Mass/Vol] 23 mg/dL High 7-18 [facility] Comment on above: Performed By: #### L 100.0100, L500.4050 #### [facility] [address] [place], [address] Lung Screeningon 02-14-[address] Lung Scre[address] [facility] Imaging Services [address] [place] [address] Lung Screening MR#: [id number] Acct: [id number] Name: LIZZY BARAJAS Rep #: [id number] : 1945 M 78 From: Art mendez MD PCP: Carrie Garcia NP-C Status: REG [facility] Study: Low Dose CT Lung Screening Date of Exam: 02/13 Exam# [id number] Ordering Dr: Azalea Isaac NP [employer]ELOPER -[id number] STUDY: LOW DOSE CT LUNG CANCER SCREENING REASON FOR EXAM: Male, 78 years old. Lung cancer screening -- and gt;20 pk yr hx;current smoker; asymptomatic RADIATION DOSAGE (If Supplied By Facility): CTDIvol = ( 2.39 ) mGy, DLP = ( 81.60 ) mGycm TECHNIQUE: No contrast was administered. Low dose technique was utilized (average mAS-38 and kVp 120). 1.25 mm axial source images with a slice interval of 1.25-mm were reconstructed in lung windows. 2.5 mm axial source images with a slice interval of 2.5-mm were reconstructed in lung windows. 5.0 mm axial source images with a slice interval of 5.0-mm were reconstructed in soft tissue windows. COMPARISON: Comparison is made with prior study dated February 08, 2023. NODULES: No suspicious nodules are seen. Emphysema: Mild degree of emphysematous changes with scarring at the lung apices. Stable calcification along the anterior inferior aspect of the right pleural space. Endobronchial lesion: None Aorta: Mild degree of atherosclerotic plaque formation of the aortic arch. CORONARY ARTERIES: Coronary artery calcification is seen. Heart: Unremarkable Pulmonary artery: Unremarkable Mediastinal nodes: Small mediastinal lymph nodes. Other chest and abdominal findings: CT/Low Dose CT Lung Screening IMPRESSION: Lung-RADS category 2 - Continue annual screening with LDCT in 12 months. IMPORTANT NOTES FOR USE: ACR Lung-RADS Version 1.1 Assessment Categories Release Date: 2018 Category: Coded 0-4 bases on nodule(s) with highest degree of suspicion. Negative screen is defined as categories 1 and 2; a positive screen is defined as categories 3 and 4. Category 3 and 4A nodules that are unchanged on interval CT should be coded as category 2, and individuals returned to screening in 12 months. Category 4X: Category 3 or 4 nodules with additional imaging findings that increase the suspicion of lung cancer, such as spiculation, GGN that doubles in size in 1 year, enlarged lymph notes, etc. Category Modifiers: S (significant finding unrelated to lung cancer) Electronically Signed: Art Manning MD at 13:12 EST Reading Location ID and State: [address] [place] [address] , Service support , CC: LISANDRO Garcia; LISANDRO Isaac Dye House Worker: Signed Normal [facility] Oncology Visit Reporton 02-04 Oncology Visit Report [facility] [address] [facility] [place], [place] [address] OFFICE VISIT Date of Service: 02/14/24 1200 MR#: [id number] Acct: [id number] Name: LIZZY BARAJAS Rep #: [id number] : 1945 From: Azalea Evangelista Age/Sex: 78/M Location: [facility] Status: Signed HPI HPI Reviewed eligibility criteria: 78 year old M with a >20 pack year history (1/2 ppd x 43 yrs) Smoking Status: Current every day smoker Decision Making Engaged in shared decision making visit utilizing a visual aid. Discussed the risks and benefits of lung cancer screening including the total radiation exposure, false positive rate, over diagnosis and potential need for follow-up diagnostic testing all associated with low-dose chest CT. Comorbidities Afib, HTN, dyslipidemia, PSVT ROS Const Denies anorexia, Denies fatigue, Denies headache(s), Denies poor appetite and Denies weight loss ENT Denies headache(s) Card Denies chest pain, Reports dyspnea on exertion and Denies palpitations Resp Denies cough, Reports dyspnea on exertion, Denies hemoptysis and Denies wheezing GI Reports system reviewed and no additional complaints, except as documented Reports system reviewed and no additional complaints, except as documented Musc Reports system reviewed and no additional complaints, except as documented Skin/Breast Reports system reviewed and no additional complaints, except as documented Neuro Yes system reviewed and no additional complaints, except as documented and No headache(s) Psych Reports system reviewed and no additional complaints, except as documented Endo Reports system reviewed and no additional complaints, except as documented, Denies fatigue and Denies palpitations Isidro/Lymph Reports system reviewed and no additional complaints, except as documented Aller/Immun Denies wheezing Exam Const General: well developed Orientation: alert HENND Head: normocephalic and atraumatic Neck Neck: trachea midline, supple and no lymphadenopathy noted Resp Effort Inspection: normal respiratory effort and symmetric chest movement Auscultation: Bilateral: Clear to Auscultation Cardio Rate: regular rate Rhythm: regular rhythm Heart Sounds: S1 normal and S2 normal Psych Mood: euthymic mood Speech and Movement: speech and movement normal Results Results February 14, [address] Lung Screening COMPARISON: Comparison is made with prior study dated February 08, 2023. NODULES: No suspicious nodules are seen. Emphysema: Mild degree of emphysematous changes with scarring at the lung apices. Stable calcification along the anterior inferior aspect of the right pleural space. Endobronchial lesion: None Aorta: Mild degree of atherosclerotic plaque formation of the aortic arch. CORONARY ARTERIES: Coronary artery calcification is seen. Heart: Unremarkable Pulmonary artery: Unremarkable Mediastinal nodes: Small mediastinal lymph nodes. Other chest and abdominal findings: IMPRESSION: Lung-RADS category 2 - Continue annual screening with LDCT in 12 months. IMPORTANT NOTES FOR USE: ACR Lung-RADS Version 1.1 Assessment Categories Release Date: 2018 Category: Coded 0-4 bases on nodule(s) with highest degree of suspicion. Negative screen is defined as categories 1 and 2; a positive screen is defined as categories 3 and 4. Category 3 and 4A nodules that are unchanged on interval CT should be coded as category 2, and individuals returned to screening in 12 months. Category 4X: Category 3 or 4 nodules with additional imaging findings that increase the suspicion of lung cancer, such as spiculation, GGN that doubles in size in 1 year, enlarged lymph notes, etc. Category Modifiers: S (significant finding unrelated to lung cancer) Intake Vital Signs 04/27/23 14:11 02/14/24 12:03 Height 6 ft 6 ft Weight: 225 lb BMI 30.5 BP 144/74 H Blood Pressure Location Lt brachial Position Sitting Respiration 18 Pulse 72 Pulse Source Monitor Temp 98.3 F Temp Source Temporal Pulse Oximetry (%) 97 Oxygen Delivery Method room air Intake Visit Reasons: Lung cancer screening Is patient in pain?: Yes (Back-gets pain injections) Allergies codeine Adverse Reaction (Verified 02/14/24 12:04) Nausea levofloxacin (From Levaquin) Adverse Reaction (Verified 02/14/24 12:04) Nausea Medications ???Medication ???Instructions ???Recorded ???Confirmed ???Type ascorbate calcium (vitamin C) 500 500 mg PO DAILY 09/30/13 02/14/24 History mg tablet aspirin 81 mg chewable tablet 81 mg PO DAILY@0800 09/30/13 02/14/24 History metoprolol tartrate 25 mg tablet 25 mg PO BID 09/30/13 02/14/24 History simvastatin 20 mg tablet 20 mg PO QHS 09/30/13 02/14/24 History cyanocobalamin (vitamin B-12) 500 mcg P (more content not included)... Normal [facility] Knee 4 or More Viewson 12-[address] [facility] Imaging Services [address] [place] [id number] Knee 4 or More Views MR#: [id number] Acct: [id number] Name: LIZZY BARAJAS Rep #: [id number] : 1945 M 78 From: Rosalina gates MD PCP: LISANDRO Crane Status: REG CLI Study: Knee 4 or More Views Date of Exam: 12/23/23 Exam# [id number] Ordering Dr: Carrie Garcia [id number] HISTORY: RULE OUT FRACTURE. TECHNIQUE: XR Knee Complete 4 Views or More. COMPARISON: None. FINDINGS: BONES : No acute fracture identified. Mineralization unremarkable. JOINTS: No dislocation. Mild degenerative change with medial compartment joint space narrowing. SOFT TISSUES: Small density in the soft tissues medial to the tibia. RAD/Knee 4 or More Views IMPRESSION: No acute fracture or dislocation identified in the left knee. Small foreign body in the medial leg. Electronically Signed: Rosalina Gonzalez MD at 15:33 EDT , CC: LISANDRO Garcia Dye House Worker: Signed Normal [facility] Basophil percentageOrdered B y: Dr. Bryant on 03-15-2022 Cholesterol [Mass/Vol] 163 mg/dL <200 [facility] Comment on above: <200 mg/dL Desirable 200-240 mg/dL Borderline >240 mg/dL High Risk Glucose [Mass/Vol] 114 mg/dL 74-106 [facility] Comment on above: Fasting Glucose resu lt from 100 to 125 mg/dL suggests IMPAIRED HOMEOSTASIS per A.D.A. criteria. Triglyceride [Mass/Vol] 158 mg/dL <199 [facility] Comment on above: The drugs N-Acetylcy steine and Metamizole may falsely depress this assay.Serum Triglycerides Reference Interval Normal <150 mg/dL Borderline high 150 - 199 mg/dL High 200 - 499 mg/dL Very High > or = 500 mg/dL Serum or plasma cholesterol in HDL measurement (mass/volume)Ordered By: Dr. Bryant on 03-15-2022 Cholesterol in HDL [Mass/Vol] 45 mg/dL >40 [facility] Comment on above: The drugs N-Acetylcy steine and Metamizole may falsely depress this assay. Reference Range HDL <40 mg/dL Low HDL Cholesterol HDL >or= 60 mg/dL High HDL Cholesterol Serum or plasma cholesterol in VLDL measurement (mass/volume)Ordered By: Dr. Bryant on 03-15-2022 Cholesterol in VLDL [Mass/Vol] 32 mg/dL 5-40 [facility] Serum or plasma low density lipoprotein (LDL) cholesterol measurement (mass/volume)Ordered By: Dr. Bryant on 03-15-2022 Cholesterol in LDL [Mass/Vol] 86 mg/dL 0-130 [facility] Whole blood hemoglobin A1c/t otal hemoglobin ratio (mass fraction)Ordered By: Dr. Bryant on 03-15-2022 HbA1c (Bld) [Mass fraction] 5.8 % 3.8-5.6 [facility] Comment on above: Normal < 5.7 % Predi abetic 5.7 - 6.4 % Diabetic >or= 6.5 % Please note range changes. CNOVon 01-06-2022 CNOV Office Visit (GENSWS ) BARAJASLIZZY GROSS ([id number]) 1945 M Date Time Provider Department 01/06/22 11:15 AM TYLER BAIRES During your visit today, we recorded the following information about you: Temperature Pulse Blood pressure Weight 97.9 degrees 91/minute 126/78 108 kg Height 1.854 m Tyler Baires MD 01/06/2022 4:40 PM Signed FOLLOW UP VISIT NAME: Lizzy Barajas CLINIC NO.: [id number] DATE OF SERVICE: 01/06/2022 : 1945 REFERRING [...] ?C (97.9 ?F), height 185.4 cm (6' 1), weight 108 kg (238 lb), SpO2 98 [...] to follow-up with me in 1 month. ____ MD Tyler Sneed MD 01/11/2022 11:54 AM Signed Addended by: TYLER BAIRES on: 01/11/2022 11:54 AM Modules accepted: Orders Tyler Baires MD 01/11/2022 11:55 AM Signed Addended by: TYLER BAIRES on: 01/11/2022 11:55 AM Modules accepted: Orders Allergies As of Date: 01/06/2022 Noted Allergy Reaction BEES 05/10/2005 CODEINE 11/25/2006 1 - Mental Status Change Date Reviewed: 01/06/2022 Reviewed by: Tyler Baires MD - Fully Assessed Reason for Visit: Follow Up [171] Cmt: CT scan Primary Visit Diagnosis:Periumbilical pain [R10.33] Order(s):[] triamcinolone acetonide 10 mg injection (KeNALog 10)Disp: Rfl: Prescriptions as of 01/11/2022 - pantoprazole DR (PROTONIX) 40 mg tablet Take 40 mg by mouth once daily. - mecobalamin (B12 ACTIVE ORAL) once daily. - Magnesium Oxide 250 mg magnesium tab Take 250 mg by mouth once daily. - esomeprazole (NEXIUM) 40 mg capsule Take 40 mg by mouth once daily. - potassium acetate once daily. 99 mg daily - Glucosamine 1,000 mg tab Take 0.5 tablets by mouth once daily. - metoprolol tartrate, short acting, (LOPRESSOR) 25 mg tablet Take 25 mg by mouth twice daily. - Telmisartan (MICARDIS) 20 mg tablet Take 1 tablet by mouth once daily. - simvastatin 20 mg tablet Take 1 tablet by mouth daily at bedtime. - ascorbic acid, vitamin C, (VITAMIN C) 500 mg tablet Take 500 mg by mouth once daily. - ASPIRIN 81 MG (more content not included)... Normal [facility] CT ABD/PEL WO IVCONon 2021 CT ABD/PEL WO IVCON * * *Final Report* * * DATE OF EXAM: Dec 30 2021 11:36AM [facility] 0531 - CT ABD/PEL WO IVCON / PROCEDURE REASON: Intra-abdominal and pelvic swelling, mass and lump, unspecified site * * * * Physician Interpretation * * * * EXAMINATION: CT ABDOMEN AND PELVIS WITHOUT IV CONTRAST CLINICAL HISTORY: Intra-abdominal mass/swelling TECHNIQUE: Non-IV contrast imaging of the abdomen and pelvis was performed using standard technique, scanning from just above the dome of the diaphragm to the symphysis pubis. Unenhanced imaging is limited for the evaluation of some intra-abdominal and pelvic pathology. MQ: [id number]_3 Contrast: IV: None Oral: 50 ml of Omni 240 10-25ml diluted with water CT Radiation dose: Integrated Dose-length product (DLP) for this visit = 800 mGy*cm. CT Dose Reduction Employed: Automated exposure control(AEC) and iterative recon COMPARISON: None. RESULT: Evaluation is compromised by lack of contrast. Abdomen / Pelvis: Liver: Unremarkable. Biliary: No biliary dilatation. Gallbladder is unremarkable. Spleen: No splenomegaly. Pancreas: Unremarkable. Adrenals: No mass. Kidneys: No calculus, hydronephrosis or finding to suggest a cyst or mass in the unenhanced kidney. There is mild stranding in perinephric region bilaterally, likely related to scarring/fibrotic changes. GI Tract: No bowel dilation. There is colonic diverticulosis predominantly involving the descending and sigmoid portions of the colon, without evidence of inflammation. Normal appendix. Lymph Nodes: No lymphadenopathy. Mesentery/peritoneum: No ascites. Retroperitoneum: No mass. 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 Pelvis: No mass or ascites. Course calcifications within the prostate gland. Surgical material seen within the anterior lower pelvic region possibly related to prior hernia repair, clinical correlation needed. Bones/Soft Tissues: Degenerative changes throughout the spine with no destructive process seen. No acute abnormality. Lower thorax: Unremarkable. Account Clerk (topogram) images: No additional findings. IMPRESSION: No acute process is seen within the abdomen or pelvis. Colonic diverticulosis without evidence of diverticulitis. Dye House Worker: [facility] Transcribe Date/Time: Dec 30 2021 1:30P Dictated by : KAMRYN VENCES MD This examination was interpreted and the report reviewed and electronically signed by: KAMRYN VENCES MD on Dec 30 2021 1:34PM EST [id number] Normal [facility] CNOVon 12-24-2021 CNOV Office Visit (GENSWS ) LIZZY BARAJAS ([id number]) 1945 M Date Time Provider Department 12/24/21 11:30 AM TYLER BAIRES GENSWS During your visit today, we recorded the following information about you: Temperature Pulse Blood pressure Weight 98.2 degrees 90/minute 130/60 108 kg Height 1.854 m Edda Rocha LPN 12/24/2021 11:39 AM Signed [...] last Mammogram screening? N/A Last Colonoscopy: 2019 GANESH Mcknight MD 12/24/2021 7:32 PM Signed HISTORY AND PHYSICAL Lizzy Barajas 1945 REFERRING PHYSICIAN: Self CHIEF COMPLAINT: Consult [...] (PROTONIX) 40 mg tablet Take 40 mg (more content not included)... Normal [facility] Absolute lymphocyte counton 05-20-2021 Lymphocytes Auto (Unsp spec) [#/Vol] 3.04 10*3/uL 0.83-4.51 [facility] Work Phone: Basophil percentageon 2021 Basophils/100 WBC (Bld) 0.5 % 0-1 [facility] Work Phone: Bilirubin [Mass/Vol] 0.40 mg/dL 0.20-1.00 [facility] Work Phone: Comment on above: For patients on eltr ombopag therapy, use of Dimension Moffat TBIL is not recommended. Chloride [Moles/Vol] 105 mmol/L 98-107 [facility] Work Phone: Eosinophils/100 WBC (Bld) 0.7 % 0-5 [facility] Work Phone: Glucose [Mass/Vol] 94 mg/dL 74-106 [facility] Work Phone: Neutrophils (Bld) [#/Vol] 5.9 10*3/uL 2.0-7.7 [facility] Work Phone: Neutrophils/100 WBC (Bld) 59.8 % 47-70 [facility] Work Phone: Potassium [Moles/Vol] 3.7 mmol/L 3.5-5.1 [facility] Work Phone: Protein [Mass/Vol] 7.0 g/dL 6.4-8.2 [facility] Work Phone: Sodium [Moles/Vol] 140 mmol/L 136-145 [facility] Work Phone: WBC (Bld) [#/Vol] 9.9 10*3/uL 4.4-11.0 [facility] Work Phone: Blood erythrocytes count (nu mber/volume)on 05-20-2021 RBC (Bld) [#/Vol] 4.12 10*6/uL 4.6-6.2 [facility] Work Phone: Blood hemoglobin measurement (mass/volume)on 05-20-2021 Hemoglobin (Bld) [Mass/Vol] 14.4 g/dL 13.0-16.5 [facility] Work Phone: Blood lymphocytes/100 leukoc yteson 05-20-2021 Lymphocytes/100 WBC (Bld) 30.8 % 19-41 [facility] Work Phone: Blood monocytes/100 leukocyt eson 05-20-2021 Monocytes/100 WBC (Bld) 7.1 % 0-10 [facility] Work Phone: Blood platelet mean volumeon 05-20-2021 Platelet mean volume (Bld) [Entitic vol] 10.4 fL 6.2-12.0 [facility] Work Phone: Determination of erythrocyte mean corpuscular volume (MCV)on 05-20-2021 MCV (RBC) [Entitic vol] 101.2 fL 80-94 [facility] Work Phone: Erythrocyte sedimentation ra nohelia 05-20-2021 ESR (Bld) [Velocity] 9 mm/h 0-20 [facility] Work Phone: Hematocrit Auto (Bld) [Volum e fraction]on 05-20-2021 Hematocrit (Bld) [Volume fraction] 41.7 % 40-54 [facility] Work Phone: Laboratory - Chemistry and C hemistry - challengeon 05-20-2021 ALP [Catalytic activity/Vol] 91 U/L 45-117 [facility] Work Phone: ALT [Catalytic activity/Vol] 68 U/L 16-61 [facility] Work Phone: CK [Catalytic activity/Vol] 32 U/L 39-308 [facility] Work Phone: CO2 [Moles/Vol] 29.0 mmol/L 21.0-32.0 [facility] Work Phone: Free T4 [Mass/Vol] 1.18 ng/dL 0.76-1.46 [facility] Work Phone: Globulin (S) [Mass/Vol] 3.3 g/dL 2.2-4.2 [facility] Work Phone: [phone] Urea nitrogen/Creatinine [Mass ratio] 19.8 mg/mg 10-20 [facility] Work Phone: [phone] Laboratory - Hematology and Cell countson 05-20-2021 Erythrocyte distribution width (RBC) [Entitic vol] 47.6 fL 35.1-43.9 [facility] Work Phone: [phone] Erythrocyte distribution width (RBC) [Ratio] 12.8 % 11.6-14.6 [facility] Work Phone: [phone] Immature granulocytes/100 WBC (Bld) 1.100 % 0.0-0.9 [facility] Work Phone: [phone] Comment on above: IG% - Immature Granu locytes (promyelocytes, myelocytes and metamyelocytes) > 1% indicates that a LEFT SHIFT is Present. MCH (RBC) [Entitic mass] 35.0 pg 27.0-32.0 [facility] Work Phone: [phone] Nucleated RBC/100 WBC (Bld) [Ratio] 0 % 0-5 [facility] Work Phone: [phone] MCHC Auto (RBC) [Mass/Vol]on 05-20-2021 MCHC (RBC) [Mass/Vol] 34.5 g/dL 32-36 [facility] Work Phone: No Panel Informationon 05-20 Estimated GFR (MDRD) Amer 88 mL/min >60 [facility] Work Phone: [phone] Comment on above: GFR Calc Estimated GFR (MDRD) Non-Af Amer 72 mL/min >60 [facility] Work Phone: [phone] Comment on above: Non- GFR Calc Thyroid Stimulating Hormone (TSH) 1.08 uIU/mL 0.358-3.74 [facility] Work Phone: Platelets bldon 05-20-2021 Platelets (Bld) [#/Vol] 297 10*3/uL 150-450 [facility] Work Phone: [phone] Serum cyclic citrullinated p eptide IgG antibody assay (units/volume)on 05-20-2021 Cyclic citrullinated peptide IgG Qn 10 units [facility] Work Phone: Comment on above: Negative <20 Weak po sitive 20 - 39 Moderate positive 40 - 59 Strong positive >59Performed at: [facility] [address] [id number] Director: Saeed Browning MD, Phone: [phone] Serum nuclear antibody titer by immunofluorescenceon 05-20-2021 Nuclear Ab IF (S) [Titer] Negative [facility] Work Phone: Comment on above: Negative <1:80 Borde rline 1:80 Positive >1:80ICAP nomenclature: AC-0For more information about Hep-2 cell patterns useANApatterns.org, the official website for theInternational Consensus on Antinuclear Antibody (SAMEER)Patterns (ICAP).Performed at: [facility] [address] [id number] Director: Justin Isidro PhD, Phone: [phone] Serum or plasma C reactive p rotein measurement (mass/volume)on 05-20-2021 CRP [Mass/Vol] mg/L 0.0-3.0 [facility] Work Phone: Comment on above: C-Reactive Protein ( CRP) provides useful information for thediagnosis, therapy and monitoring of inflammatory processesand associated diseases. For the evaluation of Relative Riskfor Cardiovascular Disease, a High Sensitivity CRP (HSCRP)should be ordered. Serum or plasma albumin vandana urement (mass/volume)on 05-20-2021 Albumin [Mass/Vol] 3.7 g/dL 3.2-5.0 [facility] Work Phone: [phone] Serum or plasma albumin/glob ulin mass ratioon 05-20-2021 Albumin/Globulin [Mass ratio] 1.1 {ratio} 0.9-2.4 [facility] Work Phone: [phone] Serum or plasma calcium vandana urement (mass/volume)on 05-20-2021 Calcium [Mass/Vol] 8.6 mg/dL 8.5-10.1 [facility] Work Phone: Serum or plasma creatinine m easurement (mass/volume)on 05-20-2021 Creatinine [Mass/Vol] 1.06 mg/dL 0.70-1.30 [facility] Work Phone: Comment on above: The validity of the calculated GFR & GFRAA in patients over 70 years has not been determined. Clinical correlation is essential. Serum or plasma urea nitroge n measurement (mass/volume)on 05-20-2021 Urea nitrogen [Mass/Vol] 21 mg/dL 7-18 [facility] Work Phone: Serum rheumatoid factor dete ctionon 05-20-2021 Rheumatoid factor Ql (S) < 10.0 IU/mL <15 [facility] Work Phone: Thin prep Papanicolaou smear with manual screeningon 05-20-2021 Thin prep Papanicolaou smear with manual screening 32 U/L 15-37 [facility] Work Phone: Thin prep Papanicolaou smear with manual screening 6 5-15 [facility] Work Phone: Basophil percentageon 2021 Creatinine [Mass/Vol] 0.8 mg/dL 0.70-1.30 [facility] Work Phone: No Panel Informationon 04-22 Bedside Estimated GFR (eGFR) > 60.0000 mL/min >60 [facility] Work Phone: Vital Signs Date Time Vital Sign Value Performing Clinician Faci lity 02-08-2023 12:29-0500 Body height 182.[address] [facility]-08-2023 12:29-0500 Body mass index (BMI) [Ratio] 31.1 kg/m2 Dr. Hardin [facility] 02-08-2023 12:29-0500 Body temperature 98 [degF] Dr. Zina Ferrell [facility] 02-08-2023 12:29-0500 Body weight 103.[address] Hardin [facility] 02-08-2023 12:29-0500 Diastolic blood pressure 74 mm[Hg] Dr. Zina Ferrell [facility] 02-08-2023 12:29-0500 Heart rate 83 /min Dr. Zina Ferrell [facility] 02-08-2023 12:29-0500 Respiratory rate 18 /min Dr. Zina Ferrell [facility] 02-08-2023 12:29-0500 SaO2% (BldA) [Mass fraction] 96 % Dr. Hardin [facility] 02-08-2023 12:29-0500 Systolic blood pressure 126 mm[facility] 01-06-2022 11:13-0400 Body height 185.4 cm Tyler Baires MD Work Phone: [facility] 01-06-2022 11:13-0400 Body temperature 97.9 [degF] Tyler Baires MD Work Phone: [facility] 01-06-2022 11:13-0400 Body weight 107.96 kg Tyler Baires MD Work Phone: [facility] 01-06-2022 11:13-0400 Diastolic blood pressure 78 mm[Hg] Tyler Baires MD Work Phone: [facility] 01-06-2022 11:13-0400 Heart rate 91 /min Tyler Baires MD Work Phone: [facility] 01-06-2022 11:13-0400 SaO2% (BldA) [Mass fraction] 98 % Tyler Baires MD Work Phone: [facility] 01-06-2022 11:13-0400 Systolic blood pressure 126 mm[Hg] Tyler Baires MD Work Phone: [facility] 12-24-2021 11:36-0400 Body height 185.4 cm Tyler Baires MD Work Phone: [facility] 12-24-2021 11:36-0400 Body temperature 98.2 [degF] Tyler Baires MD Work Phone: [facility] 12-24-2021 11:36-0400 Body weight 107.96 kg Tyler Baires MD Work Phone: [facility] 12-24-2021 11:36-0400 Diastolic blood pressure 60 mm[Hg] Tyler Baires MD Work Phone: [facility] 12-24-2021 11:36-0400 Heart rate 90 /min Tyler Baires MD Work Phone: [facility] 12-24-2021 11:36-0400 SaO2% (BldA) [Mass fraction] 96 % Tyler Baires MD Work Phone: [facility] 12-24-2021 11:36-0400 Systolic blood pressure 130 mm[Hg] Tyler Baires MD Work Phone: [facility] 10-13-2021 11:59-0400 Body height 182.[address] Zina Ferrell Work Phone: [facility] Work Phone: 10-13-2021 11:59-0400 Body mass index (BMI) [Ratio] 32.1 kg/m2 Dr. Zina Ferrell Work Phone: [facility] Work Phone: 10-13-2021 11:59-0400 Body temperature 98.7 [degF] Dr. Zina Ferrell Work Phone: [facility] Work Phone: 10-13-2021 11:59-0400 Body weight 107.[address] Zina Ferrell Work Phone: [facility] Work Phone: 10-13-2021 11:59-0400 Diastolic blood pressure 77 mm[Hg] Dr. Zina Ferrell Work Phone: [facility] Work Phone: 10-13-2021 11:59-0400 Heart rate 77 /min Dr. Zina Ferrell Work Phone: [facility] Work Phone: 10-13-2021 11:59-0400 Respiratory rate 15 /min Dr. Zina Ferrell Work Phone: [facility] Work Phone: 10-13-2021 11:59-0400 SaO2% (BldA) [Mass fraction] 98 % Dr. Zina Ferrell Work Phone: [facility] Work Phone: 10-13-2021 11:59-0400 Systolic blood pressure 128 mm[Hg] Dr. Zina Ferrell Work Phone: [facility] Work Phone: Encounters Encounter Date Encounter Type Care Provider Facility Start: 09-19-2024 End: 09-19-2024 ambulatory Carrie Singletongar [employer] Work Phone: -Ultrasound [facility] Start: 09-19-2024 End: 09-19-2024 Patient encounter procedure Carrieberna Garcia [employer] -Ultrasound [facility] Work Phone: Start: 09-19-2024 End: 09-19-2024 ambulatory Carrie Fausto Facility:[facility] Start: 09-14-2024 End: 09-14-2024 ambulatory Carrie Fausto [employer] Work Phone: -[facility] Start: 09-14-2024 End: 09-14-2024 Patient encounter procedure Carrie Garcia [employer] -Laboratory [place] [facility] Start: 09-14-2024 End: 09-14-2024 ambulatory Carrie Fausto Facility:[facility] Start: 04-04-2024 ambulatory Mango Huddleston Facility:[facility] Start: 04-04-2024 End: 04-04-2024 ambulatory Carrie Fausto Facility:[facility] Start: 03-21-2024 End: 03-21-2024 ambulatory Carrie Fausto Facility:[facility] Start: 03-05-2024 End: 03-05-2024 ambulatory Cazenovia Fausto Facility:[facility] Start: 02-14-2024 End: 02-14-2024 ambulatory Azalea Isaac [employer] Facility:[facility] Start: 02-14-2024 End: 02-14-2024 ambulatory Azalea AlejandroMarlin NP Facility:[facility] Start: 12-23-2023 End: 12-23-2023 ambulatory Carrie Garcia Facility:[facility] Start: 02-08-2023 End: 02-08-[address] Zina Ferrell [facility] Work Phone: Start: 02-08-2023 End: 02-08-[address] Work Phone: Start: 03-15-2022 End: 03-15-2022 ambulatory [facility] Work Phone: Start: 03-15-2022 End: 03-15-2022 Patient encounter procedure [facility] Start: 01-06-2022 End: 01-06-2022 ambulatory TYLER BAIRES Facility:[facility] Start: 01-06-2022 End: 01-06-2022 Patient encounter procedure Tyler Baires MD Work Phone: General Surgery Comment on above: Periumbilical pain ( Primary Dx) Start: 12-30-2021 End: 12-30-2021 ambulatory TYLER BAIRES Facility:[facility] Start: 12-30-2021 End: 12-30-2021 ambulatory ZINA FERRELL Facility:[facility] Start: 12-30-2021 End: 12-30-2021 Subsequent hospital visit by physician [facility] ([facility]) Work Phone: Cat Scan Comment on above: Intra-abdominal and pelvic swelling, mass and lump, unspecified site [R19.00] Start: 12-24-2021 End: 12-24-2021 ambulatory TYLER BAIRES Facility:[facility] Start: 12-24-2021 End: 12-24-2021 Patient encounter procedure Tyler Baires MD Work Phone: General Surgery Comment on above: Intra-abdominal and pelvic swelling, mass and lump, unspecified site (Primary Dx) Start: 10-30-2021 End: 08-26-[address] Zina Ferrell Work Phone: [facility] Work Phone: Start: 10-30-2021 End: 10-30-[address] Zina Ferrell [facility] Start: 10-13-2021 End: 10-13-[address] Zina Ferrell Work Phone: [facility] Start: 06-04-2021 End: 06-04-2021 [facility] Start: 05-20-2021 End: 05-20-2021 Patient encounter procedure [facility]-Laboratory, [place] Start: 04-22-2021 End: 04-22-2021 Patient encounter procedure [facility]-Cat Scan, [facility] Procedures Date Procedure Procedure Detail Performing Clinician Start: 09-19-2024 Complete ultrasound of kidneys and bladder Carrie Garcia [employer] Work Phone: Start: 02-08-[address] Zina Ferrell Start: 12-30-2021 Ct abdomen & pelvis w/o contrast material Tyler Baires MD Work Phone: Start: 10-30-2021 Radiologic examinati on of knee Dr. Zina Ferrell Work Phone: Start: 10-13-[address] Zina Ferrell Work Phone: Start: 06-04-2021 Radiography of thora cic spine Start: 04-22-2021 CT of soft tissues o f neck with contrast Start: 08-30-2019 Colonoscopy Tylre montoya MD Work Phone: Plan of Treatment Date Care Activity Detail Author Start: 08-29-2024 Colonoscopy COLONOSCOPY [facility] Start: 08-29-2024 COLORECTAL CANCER SCREENING COLORECTAL CANCER SCREENING [facility] Start: 01-06-2023 BP CONTROLLED (<130/80) BP CONTROLLE D (<130/80) [facility] Start: 11-05-2022 Covid-19 Vaccine ( season) Covid-19 Vaccine ( season) [facility] Start: 11-05-2022 Influenza vaccination Influenza Vacc ine (#1) [facility] Start: 03-07-2022 Advance Directive Discussion Advance Directive Discussion [facility] Start: 03-07-2022 [facility] Start: 03-07-2021 ADVANCE DIRECTIVE DISCUSSION ADVANCE DIRECTIVE DISCUSSION [facility] Start: 03-07-2021 [facility]ION [facility]MENT [facility] Start: 01-06-2019 DIABETES SCREEN DIABETES SCREEN [facility] Start: 01-06-2019 Diabetes Screening Diabetes Screenin g [facility] Start: 07-27-2016 LIPID SCREEN LIPID SCREEN [facility] Start: 07-27-2012 Pneumococcal Vaccine : 65+ (2 - PCV) Pneumococcal Vaccine: 65+ (2 - PCV) [facility] Start: 07-27-2012 PNEUMOCOCCAL: 65+ (2 - PCV) PNEUMOCOCCAL: 65+ (2 - PCV) [facility] Start: 11-24-2007 SHINGRIX VACCINE (2 of 3) SHINGRIX VACCINE (2 of 3) [facility] Start: 1996 Influenza vaccination LUNG CANCER [facility] Start: 1991 COLOGUARD (FIT-DNA) COLOGUARD (FIT-D NA) [facility] Start: [address] COLONOGRAPHY [facility] Start: 1991 FECAL OCCULT BLOOD FECAL OCCULT BLOO D [facility] Start: 1991 SIGMOIDOSCOPY SIGMOIDOSCOPY [facility] Start: 1965 Urine microalbumin profile [facility] Start: 1964 ANNUAL PCP TEAM MEDICAL SERVICE TECHNICIAN [place] DISEASE VISIT ANNUAL PCP TEAM CHRONIC DISEASE VISIT [facility] Start: 1964 BP CONTROLLED (<130/80) BP CONTROLLE D (<130/80) [facility] Start: 1964 HEPATITIS C SCREENING HEPATITIS C [facility] End: 01-23-2023 Ct abdomen & pelvis w/o contrast material CT ABD/PEL WO IVCON Radiology Routine Intra-abdominal and pelvic swelling, mass and lump, unspecified site 1 Occurrences starting 12/24/2021 until 01/23/2023 [facility] Work Phone: Comment on above: 1 Occurrences starti ng 12/24/2021 until 01/23/2023 [facility] Immunizations Immunization Date Immunization Notes Care Provider Bhumi cortez 11-30-2021 influenza virus vacc ine, unspecified formulation Ct (I-Stat) Work Phone: [facility] 11-27-2011 influenza virus vacc ine, unspecified formulation Tyler Baires MD Work Phone: [facility] 07-28-2011 pneumococcal polysaccharide vaccine, 23 valent Tyler Baires MD Work Phone: [facility] Work Phone: 12-08-2007 influenza virus vacc ine, unspecified formulation Tyler Baires MD Work Phone: [facility] 09-29-2007 zoster vaccine, live Tyler Baires MD Work Phone: [facility] Work Phone: 01-14-2007 influenza virus vacc ine, unspecified formulation Tyler Baires MD Work Phone: [facility] 01-17-2006 influenza virus vacc ine, unspecified formulation Tyler Baires MD Work Phone: [facility] 01-14-2005 influenza virus vacc ine, unspecified formulation Tyler Baires MD Work Phone: [facility] Work Phone: Payers Date Payer Category Payer Self-pay [id number] 2011 Medicare [id number] 2011 Medicare MEDICARE MEDICAR E A AND B [id number] 2011-Present [phone] [place] [address] Medicare [id number] 2006 Department of [facility] e ( and others) [id number] 2006 Unknown FOR LIFE [id number] 2006-Present [phone] [address] [place] [address] Indemnity [id number] Unknown [id number] Unknown [id number] Unknown [id number] Unknown [id number] Unknown [id number] [id number] Unknown [id number] Unknown [id number] Unknown [id number] [id number] Unknown [id number] Social History Date Type Detail Facility Start: 09-02-2020 End: 02-08-2023 Tobacco smoking status NEIS Unknown if ever smoked [facility] Start: 1945 Sex Assigned At Male W [facility] Start: 12-24-2021 End: 02-14-2024 Tobacco smoking status NEIS Smokes tobacco daily [facility] History of tobacco use Cigarette Smoker C [facility] Start: 02-10-2020 End: 12-24-2021 Cigarettes smoked current (pack per day) - Reported 0.5 [facility] Start: 12-24-2021 Tobacco use and exposure Smokeless tobacco non-user [facility] Start: 12-24-2021 End: 01-06-2022 Alcohol intake Current drinker of alcohol (finding) [facility] Start: 12-24-2021 Tobacco Comment less than .5 ppd [facility] Start: 1945 Sex Assigned At Not on file [facility] Start: 12-14-2021 End: 01-06-2022 Exposure to SARS-CoV-2 (event) Not sure [facility] Start: 02-10-2020 End: 12-24-2021 Tobacco use panel [facility] National Score (1-10 0), lower number is lower risk Not on file [facility] Medical Equipment Procedure Code Equipment Code Equipment Origin al Text Equipment Identifier Dates Patch Ventralex St Sepra Sorbaflex 3.2in Large [place] [employer] - [id number] Start: 01-20-2016 Comment on above: Description: Ventral ex ST hernia patch Clinical Notes 07-25-2014 to 09-19-2024 Tyler Baires MD - 01/06/2022 12:57 PM Khushboo King, (R) - 12/30/2021 11:20 AM Robles Baires MD - 12/24/2021 7:28 PM Reanna Rocha LPN - 12/24/2021 11:38 AM EDT Note Date & Type Note Facility 09-19-2024 Radiology Diagnostic study note [facility] Imaging Services [address] [place] [address] [id number] Kidney and Bladder MR#: [id number] Acct: [id number] Name: LIZZY BARAJAS Rep #: [id number] : 1945 M 79 From: Paxton Manning MD PCP: LISANDRO Crane Status: REG CLI Study:Kidney and Bladder Date of Exam: 0 09/19/24 Exam# [id number] Ordering Dr: Ra juwan Garcia PROCEDURE: KIDNEY AND BLADDER 09/19/2024 REASON FOR EXAM: LOW BACK PAIN TECHNIQUE: KIDNEY AND BLADDER COMPARISON: None FINDINGS: Kidneys: Normal renal sizes, parenchymal thicknesses, and echotextures. [place]: No evidence of hydronephrosis. Cysts or Masses: 9 mm x 10 mm x 9 mm left parapelvic renal cyst. Other: Nonobstructive left intrarenal calculi. The larger measures 4 mm x 4 mm x 2 mm. RIGHT Kidney Size: 12.9 cm x 5.4 cm x 6.4 cm Volume: 232.22 mL Cortical Thickness (if discernible): 15 mm (>6mm is normal) LEFT Kidney Size: 12.8 cm x 5.2 cm x 5.9 cm Volume: 206 mL Cortical Thickness (if discernible): 13 mm (>6mm is normal) US/Kidney and Bladder IMPRESSION: Left parapelvic renal cyst. There are 2 tiny nonobstructive left intrarenal calculi. Reading Location: [place] [address] CC: LISANDRO Garcia ~ [employer] Worker: Signed [facility] 01-06-2022 Note HNO ID: [id number] Author: Tyler Baires MD Service: ? Author Type: Physician Type: Progress Notes Filed: 01/06/2022 4:40 PM Note Text: FOLLOW UP VISIT NAME: Lizzy [facility]aresppard CLIN[facility] NO.: [id number] DATE OF SERVICE: 01/06/2022 : 1945 REFERRING [...] ?C (97.9 ?F), height 185.4 cm (6' 1), weight 108 kg (238 lb), SpO2 98 [...] me in 1 month. Tyler Baires MD [facility] 01-06-2022 History of Present illness Narrative FOLLOW UP VISIT NAME: Lizzy Forde Barajas [facility] NO.: [id number] DATE OF SERVICE: 01/06/2022 : 1945 REFERRING [...] C (97.9 F), height 185.4 cm (6' 1), weight 108 kg (238 lb), SpO2 98 [...] Tyler Baires MD documented in this encounter [facility] 12-30-2021 Note HNO ID: [id number] Author: RT Morro(Keyshawn) Service: ? Author Type: Rubbing Bed Operator Type: Progress Notes Filed: 12/30/2021 4:02 PM Note Text: Radiology Service Progress Note PATIENT NAME: Lizzy Barajas DATE OF SERVICE: December 30, 2021 TIME: [...] IV DATA: Not applicable SIGNED BY: RT Kailash(Keyshawn) December 30, 2021 4:02 PM [facility] 12-30-2021 History of Present illness Narrative Radiology Service Progress Note PATIENT NAME: Lizzy Barajas DATE OF SERVICE: December 30, 2021 TIME: [...] IV DATA: Not applicable SIGNED BY: RT Kailash(Keyshawn) December 30, 2021 4:02 PM documented in this encounter [facility] 12-24-2021 Note HNO ID: [id number] Author: Tyler Baires MD Service: ? Author Type: Physician Type: Progress Notes Filed: 12/24/2021 7:32 PM Note Text: HISTORY AND PHYSICAL Lizzy Barajas 1945 REFERRING PHYSICIAN: Self CHIEF COMPLAINT: Consult [...] entered by the nurse and reviewed by nc Nursing Notes: Edda Rocha LPN 12/24/2021 11:39 [...] Gastrointestinal: The patie (more content not included)... [facility] 12-24-2021 History of Present illness Narrative HISTORY AND PHYSICAL Lizzy Barajas 1945 REFERRING PHYSICIAN: Self CHIEF COMPLAINT: Consult [...] & L5 degenerative spine disease Pure hypercholesterolemia 2004 [...] entered by the nurse and reviewed by nc Nursing Notes: Edda Rocha LPN 12/24/2021 11:39 [...] N/A Last Colonoscopy: 2019 Edda Rocha LPN PHYSICAL EXAMINATION: General: The patient is 76 year old male, well nourished, well hydrated in no acute distress. The patient is oriented to time, place, and person. VITALS: Blood pressure 130/60, pulse 90, temperature 36.8 C (98.2 F), height 185.4 cm (6' 1), weight 108 kg (238 lb), SpO2 96 [...] Tyler Baires MD documented in this encounter [facility] 12-24-2021 Nurse Note REVIEW OF SYSTEMS: [...] Edda Rocha LPN documented in this encounter [facility] 07-25-2014 History of Past i llness Narrative Problem Noted Date Resolved Date Dysphagia 07/25/2014 01/07/2016 Onychia and paronychia of toe 04/14/2011 Reflux esophagitis 01/19/2008 01/07/2016 Esophageal reflux 12/08/2007 01/07/2016 Overview: Excellent response to PPI 2007; EGD --- Dr. Collazo 2007 ----> Erosive esophagitis; Elevation of head of bed recommended Special screening for malignant neoplasms, colon 11/25/2006 01/07/2016 Blood in stool 11/25/2006 03/19/2008 PMH - PAST MEDICAL HISTORY OF Overview: L4 & L5 degenerative spine disease Tobacco use disorder 01/07/2016 documented as of this encounter (statuses as of 12/24/2021) [facility] History of Past illness Narrative* Problem [...] of this encounter (statuses as of 01/06/2022) [facility] History of Past illness Narrative* Problem [...] of this encounter (statuses as of 01/08/2023) [facility] History of Past illness Narrative* Problem [...] of this encounter (statuses as of 01/08/2023) [facility] noteNo assessment information availableW[facility] Work Phone: Evaluation note* Diagnosis Onset Date Resolution Status [id number] acute Tobacco use disorder, continuous acute [facility] Work Phone: Evaluation note* Diagnosis Intra-abdominal and pelvic swelling, mass and lump, unspecified site- Primary documented in this encounter [facility] note* Diagnosis Periumbilical pain- Primary Abdominal pain, periumbilic documented in this encounter [facility] note* Diagnosis Intra-abdominal and pelvic swelling, mass and lump, unspecified site [facility])No reason for referral information availableWOhio State [facility]ing [facility] Work Phone: Chief Complaint and Reason for Visit Chief Complaint RIGHT LYMPHADENOPATH Y OF UNCERTAIN CAUSE Chief Complaint Lung cancer screenin g TOBACCO USE Reason for Visit [id number] Tobacco use disorder, continuous Chief Complaint Lung cancer screenin g SCREENING Reason for Visit [id number] Tobacco use disorder, continuous Chief Complaint Admit Date LOW BACK PAIN September 19, 2024 11:2 3am Family History No Family History Records Found Relationship Condition Age at Onset Recorded Date/T kleber Unknown Family History?No pertinent history Unkno wn October 01, 2013 9:50am Family History?No pertinent history Unkno wn October 01, 2013 9:50am Relationship Condition Age at Onset Recorded Date/T kleber Unknown Family History?No pertinent history Unkno wn October 01, 2013 8:50am Family History?No pertinent history Unkno wn October 01, 2013 8:50am Advance Directives No Advanced Directives Records Found Advance Directive Response Recorded Date/ Time Advance Directives Yes September 30 6:18pm Living Will Yes September 18, 2019 8:00pm Power of Child Day Care Teacher Yes September 17 0 8:00pm Documents on File Type Date Recorded Patient Hand Edge 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 Expl anation Advance Directive(s) 06/16/2011 Advance Directive(s) 03/13/2008 7:59 AM Documents on File Type Date Recorded Patient Hand Edge Bander Expl anation Advance Directive(s) 06/16/2011 Advance Directive(s) 03/13/2008 7:59 AM Advance Directive Response Recorded Date/ Time Advance Directives Yes September 30 5:18pm Living Will Yes September 18, 2019 7:00pm Power of Child Day Care Teacher Yes September 17 0 7:00pm Advance Directive Response Recorded Date/ Time Advance Directives Yes September 30 6:18pm Reason for Referral Specialty Diagnoses / Procedures Referred By Ozzie johnson Referred To Contact CT IMAGING Diagnoses Intra-abdominal and pelvic swelling, mass and lump, unspecified site Procedures CT ABD/PEL WO IVCON CT ABD & PELVIS W/O CONTRAST Tyler Baires MD [address] [place] [address] Ct Imaging Referral ID Status Reason Start Date Expiration Date Visits Requested Visits Authorized [id number] Authorized Auto-Generat ed Referral 01/23/2023 1 1 Specialty Diagnoses / Procedures Referred By Ozzie johnson Referred To Contact CT IMAGING Diagnoses Intra-abdominal and pelvic swelling, mass and lump, unspecified site Procedures CT ABD/PEL WO IVCON CT ABD & PELVIS W/O CONTRAST Tyler Baires MD [address] [place] [address] [place] [address] Referral ID Status Reason Start Date Expiration Date V isits Requested Visits Authorized [id number] Closed Auto-Generate d Referral 12/24/2021 01/23/2023 1 1 Summary Purpose Additional Source Comments Goals (unrecognized section and content) Goals may be documented in a n alternate sectionGoals may be documented in an alternate sectionGoals may be documented in an alternate sectionGoals may be documented in an alternate sectionGoals may be documented in an alternate sectionGoals may be documented in an alternate sectionGoals may be documented in an alternate section Source Comments (unrecognize d section and content) In the event this informatio n is protected by the Federal Confidentiality of Alcohol and Drug Abuse Patient Records regulations: The Federal rules restrict any use of the information to criminally investigate or prosecute any alcohol or drug abuse patient.[facility] the event this information is protected by the Federal Confidentiality of Alcohol and Drug Abuse Patient Records regulations: The Federal rules restrict any use of the information to criminally investigate or prosecute any alcohol or drug abuse patient.[facility] the event this information is protected by the Federal Confidentiality of Alcohol and Drug Abuse Patient Records regulations: The Federal rules restrict any use of the information to criminally investigate or prosecute any alcohol or drug abuse patient.[facility] the event this information is protected by the Federal Confidentiality of Alcohol and Drug Abuse Patient Records regulations: The Federal rules restrict any use of the information to criminally investigate or prosecute any alcohol or drug abuse patient.[facility] Reason for Visit (unrecogniz ed section and content) Reason Comments Consult hernia Reason Comments Follow Up CT scan Reason Comments Radiology CT Specialty Diagnoses / Procedures Referred By Contthais johnson Referred To Contact CT IMAGING Diagnoses Intra-abdominal and pelvic swelling, mass and lump, unspecified site Procedures CT ABD/PEL WO IVCON CT ABD & PELVIS W/O CONTRAST Tyler Baires MD 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 Zina Ferrell MD Family Provider Active Dr. Zina Ferrell MD Primary Care Provider Active Team Status: Inactive Member Role Status Dates Dr. Zina Ferrell MD Primary Care Provider Active Dr. 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 Zina Ferrell MD Family Provider Active Carrie Garcia NP-C Primary Care Provider Active Team Status: Inactive Member Role Status Dates Dr. Zina Ferrell MD Referring Provider Active Azalea Isaac SHAREPOINT NET DEVELOPER, SHAREPOINT NET DEVELOPER-C Attending Provider Active Carrie Garcia SHAREPOINT NET DEVELOPER-C Primary Care Provider Active Team Status: Inactive Member Role Status Dates Azalea Isaac SHAREPOINT NET DEVELOPER, SHAREPOINT NET DEVELOPER-C Attending Provider, Referring Provider Active Carrie Garcia SHAREPOINT NET DEVELOPER-C Primary Care Provider Active Team Status: Active Member Role/Relationship Status Dates Carrie Garcia SHAREPOINT NET DEVELOPER-C Primary Care Provider Active Team Status: Inactive Member Role/Relationship Status Dates Carrie Garcia SHAREPOINT NET DEVELOPER-C Primary Care Provider Active Start: September 14, 2024 End: September 14, 2024 Carrie Garcia NP-C Attending Provider Active St art: September 14, 2024 End: September 14, 2024 Team Status: Active Member Role/Relationship Status Dates Carrie Garcia SHAREPOINT NET DEVELOPER-C Primary Care Provider Active Start: September 19, 2024 Carrie Garcia NP-C Attending Provider Active St art: September 19, 2024 Carrie Garcia NP-C Referring Provider Active St art: September 19, 2024 Team Status: Inactive Member Role/Relationship Status Dates LISANDRO Crane Primary Care Provider Active Start: September 19, 2024 End: September 19, 2024 LISANDRO Crane Attending Provider Active St art: September 19, 2024 End: September 19, 2024 LISANDRO Crane Referring Provider Active St art: September 19, 2024 End: September 19, 2024 (unrecognized sect ion and content) No Status Records FoundNo Status Records Found INFORMATION SOURCE (unrecogn ized section and content) DATE CREATED AUTHOR 01/12/2022 [facility] DATE CREATED AUTHOR AUTHOR'S LEXI GALLAGHER 09/27/2024 [facility] FOR RECORDS PERTAINING TO PATIENTS WHO ARE [...] BE BASED ON THE PRIMARY CLINICAL RECORDS. [email or web address] [facility]. provides no warranty or guarantee of the accuracy or completeness of information in this document.
== END | disposition home or self-care (01) ==
LOC: MTRAD 11:03
PROVIDERS: PCP Nurse Practitioner Family; Referring Provider Clinical Nurse Specialist Adult Health; Visit Provider Clinical Nurse Specialist Adult Health
DX: M51.369 Other intervertebral disc degeneration, lumbar region without mention of lumbar back pain or lower extremity pain (principal)
CPT/HCPCS: 72114

== ENCOUNTER → 2025-02-19 | Outpatient (CLI) | payer MEDICARE, OTHER, SELFPAY ==
--- NOTE | 2025-02-19 13:00 | CT_ITS ---
PROCEDURE: LOW DOSE CT LUNG SCREENING 02/19/2025 REASON FOR EXAM: LUNG CANCER SCREENING 1 pack per day smoker times 33 years TECHNIQUE: Procedure Code: CTLUNGSCREEN Modality: CT Procedure: LOW DOSE CT LUNG SCREENING Coronal and Sagittal reconstruction series were provided. One or more dose reduction techniques were used (e.g., Automated exposure control, adjustment of the mA and/or kV according to patient size, use of iterative reconstruction technique). REFERENCE LINK: [employer] Lung-RADS RADIATION DOSE SUMMARY: CTDlvol: 2.39 mGy DLP: 88.46 mGycm COMPARISON: 02/14/2024 FINDINGS: Lung windows show underlying emphysema with bleb formation in both lung mcgraw and nonspecific pleural thickening in both apices and both hemithoraces. No organized infiltrate effusion or suspicious noncalcified mass or nodule. Limited soft tissue windows show a normal-appearing thyroid gland. No suspicious axillary mediastinal or perihilar adenopathy. The thoracic aorta tapers normally. There are calcified coronary vessels. Limited cuts through the upper abdomen do not show a suspicious abnormality. Bony structures show degenerative change CT/Low Dose CT Lung Screening IMPRESSION: Underlying emphysema without evidence of a superimposed process or suspicious n oncalcified mass or nodule. No interval change Coronary artery calcification (CAC) is is present Lung-RADS Category: 2 BENIGN (BASED ON IMAGING FEATURES OR INDOLENT BEHAVIOR). RECOMMEND 12-MONTH SCREENING LDCT. Other Significant Findings: Reading Location: [id number]
== END | disposition home or self-care (01) ==
LOC: CT 12:58
PROVIDERS: PCP Nurse Practitioner Family; Referring Provider Nurse Practitioner Family; Visit Provider Nurse Practitioner Family
DX: Z12.2 Encounter for screening for malignant neoplasm of respiratory organs (principal); Z87.891 Personal history of nicotine dependence
CPT/HCPCS: 71271

== ENCOUNTER → 2025-03-06 | Outpatient (CLI) | payer MEDICARE, OTHER, SELFPAY ==
--- OUTSIDE RECORDS SUMMARY | 2025-03-06 11:24 | XMS RPT_ITS | CCD ---
Author Organization [facility] CliniSyoh Care Team Providers Care Digital Community Manager Name Role Phone Dr. Zina Ferrell Primary Care Provider Dr. Zina Ferrell Referring Provider Marlin HYDROELECT[employer]IC PLANT MAINTAINER, HYDROELECTRIC PLANT MAINTAINER-C Azalea Attending Provider [phone] Marlin HYDROELECTRIC PLANT MAINTAINER, HYDROELECTRIC PLANT MAINTAINER-C Azalea Referring Provider [phone] Zina Ferrell MD Primary Care Provider TYLER BAIRES Attending Unavailable ZINA FERRELL Primary Care Unavailable TYLER BAIRES Referring Unavailable ZINA FERRELL Primary Care Unavailable ZINA FERRELL Primary Care Unavailable TYLER BAIRES Referring Unavailable TYLER BAIRES Attending Unavailable ZINA FERRELL Primary Care Unavailable Zina Ferrell MD Primary Care Provider [phone] Dr. Zina Ferrell Referring Provider Unavailable Marlni HYDROELECTRIC PLANT MAINTAINER, HYDROELECTRIC PLANT MAINTAINER-C Azalea Attending Provider Fausto, HYDROELECT[employer]IC PLANT MAINTAINER-C Carrie Primary Care Provider Fausto HYDROELECTRIC PLANT MAINTAINER-C, Carrie Primary Care Provider Fausto HYDROELECTRIC PLANT MAINTAINER-C, Carrie Attending Provider Fausto HYDROELECTRIC PLANT MAINTAINER-C, Carrie Referring Provider NP. Renée Estrada Attending Provider NP. Renée Estrada Referring Provider Fausto, Carrie Referring Unavailable Fausto, Carrie Primary Care Unavailable Fausto, Carrie Attending Unavailable Marlin HYDROELECT[employer]IC PLANT MAINTAINER, Azalea Attending Unavailable Marlin HYDROELECTRIC PLANT MAINTAINER, Azalea Referring Unavailable Fausto, Carrie Primary Care Unavailable Fausto, Carrie Primary Care Unavailable Fausto, [...] Referring Unavailable Fausto, Carrie Primary Care Unavailable Sean, Renée Attending Unavailable Sean, Renée Referring Unavailable Marlin HYDROELECTRIC PLANT MAINTAINER, Azalea Attending Unavailable Marlin HYDROELECTRIC PLANT MAINTAINER, Azalea Referring Unavailable Fausto, Carrie Primary Care Unavailable Mango Huddleston Attending Unavailable Fausto, Carrie Primary Care Unavailable Fausto, Carrie Referring Unavailable Allergies Allergy Classification Reported Allergen(s) Allergy Type Date of Onset Reaction(s) Facility (14 sources) Codeine; Translations: [CODEINE] Drug Allergy 7 Mental Status Change [facility] Work Phone: (9 sources) levoFLOXacin Drug Allergy 1 Nausea [facility] (5 sources) Bees; Translations: [BEES] Propensity to adverse reactions 6 [facility] Work Phone: (1 source) Codeine Drug Allergy 4 [facility] Repository (1 source) levoFLOXacin Drug Allergy 4 [facility] Medications Current Medications Medication Drug Class(es) Dates Sig (Normalized) Sig (Original) aspirin 81 mg chewable tablet (13 sources) Platelet Aggregation Inhibitor, Nonsteroidal Anti-inflammatory Drug [...] daily. calcium ascorbate 500 mg oral tablet (9 sources) Start: 4 take 1 tablet by mouth once daily Ascorbate Calcium (Vitamin C) 500 MG tablet Active 500 mg PO DAILY September 30, 2013 12:00am ELDERBERRY FRUIT (3 sources) Start: 4 take 1 capsule by [...] guidelines glucosamine sulfate 500 mg oral tablet (7 sources) Start: 4 take 1 tablet by mouth once daily Glucosamine Sulfate (Glucosamine) 500 mg tablet Active 500 mg PO DAILY April 27, 2023 1:00am administer with a meal take 0.5 tablet by mouth once da cathy Glucosamine 1,000 mg tab Take 0.5 tablets by mouth once daily. 0 Active Comment on above: Take 0.5 tablets by mouth once daily. Magnesium (3 sources) Start: 4 take 2 tablets by mouth once daily Magnesium 250 mg tablet Active 500 mg PO DAILY April 27, 2023 1:00am metoprolol tartrate 25 mg oral tablet (13 sources) beta-Adrenergic Obi Start: 4 take 1 tablet by mouth twice daily Metoprolol Tartrate 25 MG tablet Active 25 mg PO TWICE A DAY September 30, 2013 12:00am Comment on above: Take 25 mg by mouth twice daily. Pantoprazole 40 mg tablet,delayed release (DR/EC) (3 sources) Start: 4 take 1 tablet by mouth once daily Pantoprazole 40 mg tablet,delayed release (DR/EC) Active 40 mg PO DAILY April 27, 2023 1:00am potassium gluconate 2.5 meq oral tablet (3 sources) Start: 4 take 1 tablet by mouth once daily Potassium Gluconate 595 mg (99 mg) tablet Active 595 mg PO DAILY April 27, 2023 1:00am simvastatin 20 mg oral tablet (13 sources) HMG-CoA Reductase Inhibitor Start: 2 take 1 tablet by mouth at bedtime Simvastatin 20 MG tablet Active 20 mg PO AT BEDTIME September 30, 2013 12:00am Comment on above: Take 1 tablet by lola th daily at bedtime. vitamin b12 1 mg oral tablet (3 sources) Vitamin B12 Start: Cyanocobalamin (Vitamin B-12) 1,000 mcg tablet Active 500 ug PO DAILY April 27, 2023 1:00am Completed/Discontinued Medications Medication Drug Class(es) Dates Sig (Normalized) Sig (Original) acetaminophen 325 mg / HYDROcodone bitartrate 5 mg oral tablet (18 sources) Opioid Agonist Start: 10-24-2015 End: 04-27-2023 [...] once daily. atorvastatin 40 mg oral tablet (9 sources) HMG-CoA Reductase Inhibitor Start: 014 End: take 1 tablet by mouth at bedtime Atorvastatin 40 MG tablet Discontinued 40 mg PO AT BEDTIME 30 0 October 01, 2013 12:00am April 27, 2023 2:59pm azithromycin 250 mg oral tablet (3 sources) Macrolide Antimicrobial Start: End: Azithromycin 250 mg tablet Discontinued 250 mg PO daily 6 0 April 27, 2023 1:00am February 14, 2024 1:05pm 2 tablets today, then 1 tablet daily on days 2 through 5 baclofen 10 mg oral tablet (3 sources) gamma-Aminobutyric Acid-ergic Agonist Start: End: take 1 tablet by mouth three times daily Baclofen 10 mg tablet Discontinued 10 mg PO THREE TIMES A DAY 30 September 17, 2023 12:00am February 14, 2024 1:06pm cyclobenzaprine hydrochloride 10 mg oral tablet (9 sources) Muscle Relaxant Start: End: take 1 tablet by mouth three times daily Cyclobenzaprine 10 MG tablet Discontinued 10 mg PO THREE TIMES A DAY 10 October 24, 2015 12:00am April 27, 2023 2:59pm diazePAM 5 mg oral tablet (9 sources) Benzodiazepine Start: End: take 1 tablet [...] omeprazole 20 mg delayed release oral capsule (9 sources) Proton Pump Inhibitor Start: 014 End: take 1 capsule by mouth once [...] da cathy predniSONE 20 mg oral tablet (6 sources) Start: End: take 1 tablet by [...] 2023 12:52pm telmisartan 20 mg oral tablet (16 sources) Angiotensin 2 Receptor Obi Start: 07-28-2011 End: 04-27-2023 take 1 tablet by mouth once daily Telmisartan (Micardis) 20 MG tablet Discontinued 20 mg PO DAILY September 30, 2013 12:00am April 27, 2023 2:58pm Comment on above: Take 1 tablet by lloa once daily. Problems Active Problems Problem Classification Problem Date Documented Da te Episodic/Chronic Abdominal pain (7 sources) Right inguinal pain; Translations: [Right lower quadrant pain] Onset: 6 01-05-2016 Episodic Acute myocardial infarction (9 sources) Myocardial infarction; Translations: [Non-ST elevation (NSTEMI) myocardial infarction] 10-24-2015 Chronic Cardiac dysrhythmias (18 sources) Paroxysmal supraventricular tachycardia; Translations: [Supraventricular tachycardia] 10-24-2015 Chronic Chronic obstructive pulmonary disease and bronchiectasis (4 sources) Chronic bronchitis; Translations: [Unspecified chronic bronchitis] 03-19-2008 Chronic Disorders of lipid metabolism (13 sources) Dyslipidemia; Translations: [Hyperlipidemia, unspecified] 07-19-2010 Chronic Esophageal disorders (4 sources) Gastroesophageal reflux disease; Translations: [Gastro-esophageal reflux disease without esophagitis] Onset: 5 07-25-2014 Chronic Essential hypertension (13 sources) Benign hypertension; Translations: [Essential (primary) hypertension] Onset: 1 07-20-2010 Chronic Other connective tissue disease (3 sources) Spasm of cervical paraspinous muscle; Translations: [Other muscle spasm] 09-17-2023 Episodic Other connective tissue disease (1 source) Other specified soft tissue disorders; Translations: [Other specified soft tissue disorders] Onset: 5 Episodic Other gastrointestinal disorders (2 sources) Finding [...] Spondylosis; intervertebral disc disorders; other back problems (3 sources) Torticollis; Translations: [Torticollis] 09-17-2023 Episodic Substance-related disorders (13 sources) Tobacco dependence, continuous; Translations: [Nicotine dependence, unspecified, with unspecified nicotine-induced disorders] Onset: 5 Chronic Unclassified (1 source) Other intervertebral disc degeneration, lumbar region without mention of lumbar back pain or lower extremity pain; Translations: [Other intervertebral disc degeneration, lumbar region without mention of lumbar back pain or lower extremity pain] Onset: 5 Past or Other Problems Problem Classification Problem [...] conditions (not mental disorders or infectious disease) (16 sources) Patient encounter status; Translations: [Encounter for [...] Test Name Value Interpretation Reference Range Facility L/S Spine w Bend Min 6 Vwon 10-11-2024 L/S Spine w Bend Min 6 Vw [facility] Imaging Services [address] [place] [address] L/S Spine w Bend Min 6 Vw MR#: [id number] Acct: [id number] Name: LIZZY BARAJAS Rep #: [id number] : 1945 M 79 From: Yanique gates MD PCP: LISANDRO Crane Status: REG CLI Study: L/S Spine w Bend Min 6 Vw Date of Exam: Exam# [id number] Ordering Dr: Renée Estrada PROCEDURE: L/S SPINE W BEND MIN 6 VW 10/11/2024 REASON FOR EXAM: LUMBAR DDD TECHNIQUE: L/S SPINE W BEND MIN 6 VW COMPARISON: None. FINDINGS: Mild degenerative levoscoliosis apex at L3. There are diffuse spondylotic changes. Findings are demonstrated to by diffuse disc space narrowing, osteophyte formation and degenerative endplate sclerosis. There is diffuse facet joint arthropathy with secondary bilateral neural foramina narrowing. No fracture or dislocation is seen. No aggressive lytic or blastic bony lesion is noted. RAD/L/S Spine w Bend Min 6 Vw IMPRESSION: Diffuse spondylosis. No evidence of instability on flexion/extension images. Reading Location: [facility] CC: HYDROELECTRIC PLANT MAINTAINER-C Carrie Garcia; [facility] [place] Pbx Supervisor: Signed Normal [facility] Kidney and Bladderon 025 Kidney and Bladder [facility] Imaging Services [address] [place] [address] [id number] Kidney and Bladder MR#: [id number] Acct: [id number] Name: LIZZY BARAJAS Rep #: [id number] : 1945 M 79 From: Art mendez MD PCP: LISANDRO Crane Status: REG CLI Study: Kidney and Bladder Date of Exam: 09/19/24 Exam# [id number] Ordering Dr: Carrie Garcia PROCEDURE: KIDNEY AND BLADDER 09/19/2024 REASON FOR EXAM: LOW BACK PAIN TECHNIQUE: KIDNEY AND BLADDER COMPARISON: None FINDINGS: Kidneys: Normal renal sizes, parenchymal thicknesses, and echotextures. [place]: No evidence of hydronephrosis. Cysts or Masses: [...] tiny nonobstructive left intrarenal calculi. Reading Location: [place] [address] CC: LISANDRO Garcia Pbx Supervisor: Signed Normal [facility] Absolute lymphocyte countOrd ered By: Carrie Garcia on 09-14-2024 Lymphocytes Auto (Unsp spec) [#/Vol] 1.62 10*3/uL 0.83-4.51 [facility] Absolute neutrophil countOrd ered By: Carrie Garcia on 09-14-2024 Neutrophils (Bld) [#/Vol] 3.6 10*3/uL 2.0-7.7 [facility] Anion gap in Serum or Plasma Ordered By: Carrie Garcia on 09-14-2024 Anion gap [Moles/Vol] 13 mmol/L 5-15 [facility] Automated lymphocyte count a s percentage of total leukocytesOrdered By: Carrie Garcia on 09-14-2024 Lymphocytes/100 WBC Auto (Unsp spec) 27.4 % 19-41 [facility] BUN/creatinine ratioOrdered By: Carrie Garcia on 09-14-2024 Urea nitrogen/Creatinine [Mass ratio] 19.0 mg/mg 10- [facility] Basic Metabolic Profile (BMP )on 09-14-2024 BUN/CRE 19.0 RATIO Normal 10- [facility] Comment on above: Performed By: #### L 100.0100, L500.4050 #### [facility] [address] [place], [address] Calcium [Mass/Vol] 9.4 mg/dL Normal 7.6-11.0 [facility] Comment on above: Performed By: #### L 100.0100, L500.4050 #### [facility] [address] [place], [address] Chloride [Moles/Vol] 105 mmol/L Normal 98-108 [facility] Comment on above: Performed By: #### L 100.0100, L500.4050 #### [facility] [address] [place], [address] CO2 [Moles/Vol] 22.7 mmol/L Normal 21.0-32.0 [facility] Comment on above: Performed By: #### L 100.0100, L500.4050 #### [facility] [address] [place], [address] Creatinine [Mass/Vol] 1.30 mg/dL High 0.70-1.20 [facility] Comment on above: Performed By: #### L 100.0100, L500.4050 #### [facility] [address] [place], [address] GAP 13 Normal 5-15 [facility] Comment on above: Performed By: #### L 100.0100, L500.4050 #### [facility] [address] [place], [address] GFR/1.73 sq M.predicted among non-blacks MDRD (S/P/Bld) [Vol rate/Area] 56 mL/min/{1.73_m2} Low >60 [facility] Comment on above: Result Comment: mL/m in/1.73m2 CKD-EPI Creatinine Equation (2020) Performed By: #### L 100.0100, L500.4050 #### [facility] [address] [place], [address] Glucose [Mass/Vol] 147 mg/dL High 70-99 [facility] Comment on above: Performed By: #### L 100.0100, L500.4050 #### [facility] [address] [place], [address] Potassium [Moles/Vol] 4.2 mmol/L Normal 3.3-5.1 [facility] Comment on above: Performed By: #### L 100.0100, [id number] #### [facility] [address] [place], [address] Sodium [Moles/Vol] 140 mmol/L Normal 133-145 [facility] Comment on above: Performed By: #### L 100.0100, L500.4050 #### [facility] [address] [place], [address] Urea nitrogen [Mass/Vol] 25 mg/dL High 4-19 [facility] Comment on above: Performed By: #### L 100.0100, [id number] #### [facility] [address] [place], [address] Basophil percentageOrdered B y: Carrie Garcia on 09-14-2024 Basophils/100 WBC (Bld) 1.4 % High 0-1 [facility] CBC W/Diff, Automatedon 09-04 Absolute Lymph 1.62 X10 3/uL Normal 0.83-4.51 [facility] Comment on above: Performed By: #### L 100.0100, L500.2500 #### [facility] [address] [place], [address] Absolute Neut 3.6 X10 3/uL Normal 2.0-7.7 [facility] Comment on above: Performed By: #### L 100.0100, L500.2500 #### [facility] [address] [place], [address] Basophils/100 WBC (Bld) 1.4 % High 0-1 [facility] Comment on above: Performed By: #### L 100.0100, L500.2500 #### [facility] [address] [place], [address] Eosinophils/100 WBC (Bld) 2.2 % Normal 0-5 [facility] Comment on above: Performed By: #### L 100.0100, L500.2500 #### [facility] [address] [place], [address] Erythrocyte distribution width (RBC) [Ratio] 12.6 % Normal 11.6-14.6 [facility] Comment on above: Performed By: #### L 100.0100, L500.2500 #### [facility] [address] [place], [address] Hematocrit (Bld) [Volume fraction] 42.7 % Normal 40-54 [facility] Comment on above: Performed By: #### L 100.0100, L500.2500 #### [facility] [address] [place], [address] Hemoglobin (Bld) [Mass/Vol] 14.3 g/dL Normal 13.0-16.5 [facility] Comment on above: Performed By: #### L 100.0100, L500.2500 #### [facility] [address] [place], [address] IG% 0.200 Normal 0.0-0.9 [facility] Comment on above: Result Comment: IG% - Immature Granulocytes (promyelocytes, myelocytes and metamyelocytes) > 1% indicates that a LEFT SHIFT is Present. Performed By: #### L 100.0100, L500.2500 #### [facility] [address] [place], [address] Lymphocytes/100 WBC (Bld) 27.4 % Normal 19-41 [facility] Comment on above: Performed By: #### L 100.0100, L500.2500 #### [facility] [address] [place], [address] MCH (RBC) [Entitic mass] 33.3 pg High 27.0-32.0 [facility] Comment on above: Performed By: #### L 100.0100, L500.2500 #### [facility] [address] [place], [address] MCHC (RBC) [Mass/Vol] 33.5 g/dL Normal 32-36 [facility] Comment on above: Performed By: #### L 100.0100, L500.2500 #### [facility] [address] [place], [address] MCV (RBC) [Entitic vol] 99.3 fL High 80-94 [facility] Comment on above: Performed By: #### L 100.0100, L500.2500 #### [facility] [address] [place], [address] Monocytes/100 WBC (Bld) 8.1 % Normal 0-10 [facility] Comment on above: Performed By: #### L 100.0100, L500.2500 #### [facility] [address] [place], [address] Neutrophils/100 WBC (Bld) 60.7 % Normal 47-70 [facility] Comment on above: Performed By: #### L 100.0100, L500.2500 #### [facility] [address] [place], [address] Nucleated RBC (Bld) [#/Vol] 0 10*3/uL Normal 0-5 [facility] Comment on above: Performed By: #### L 100.0100, L500.2500 #### [facility] [address] [place], [address] Platelet mean volume (Bld) [Entitic vol] 10.6 fL Normal 6.2-12.0 [facility] Comment on above: Performed By: #### L 100.0100, L500.2500 #### [facility] [address] [place], [address] Platelets (Bld) [#/Vol] 254 10*3/uL Normal 150-450 [facility] Comment on above: Performed By: #### L 100.0100, L500.2500 #### [facility] [address] [place], [address] RBC (Bld) [#/Vol] 4.30 10*6/uL Low 4.6-6.2 [facility] Comment on above: Performed By: #### L 100.0100, L500.2500 #### [facility] [address] [place], [address] RDW SD 46.2 fl High 35.1-43.9 [facility] Comment on above: Performed By: #### L 100.0100, L500.2500 #### [facility] [address] [place], [address] WBC (Bld) [#/Vol] 5.9 10*3/uL Normal 4.4-11.0 [facility] Comment on above: Performed By: #### L 100.0100, L500.2500 #### [facility] [address] [place], [address] Carbon dioxide, total [Moles /volume] in Central venous bloodOrdered By: Carrei Garcia on 09-14-2024 CO2 [Moles/Vol] 22.7 mmol/L 21.0-32.0 [facility] Chloride assayOrdered By: Ra juwan Garcia on 09-14-2024 Chloride [Moles/Vol] 105 mmol/L 98-108 [facility] Eosinophil percentageOrdered By: Carrie Garcia on 09-14-2024 Eosinophils/100 WBC (Bld) 2.2 % 0-5 [facility] Erythrocyte distribution wid th ratioOrdered By: Carrie Garcia on 09-14-2024 Erythrocyte distribution width (RBC) [Ratio] 12.6 % 11.6-14.6 [facility] Erythrocyte distribution wid th standard deviationOrdered By: Carrie Garcia on 09-14-2024 Erythrocyte distribution width (RBC) [Ratio] 46.2 fl High 35.1-43.9 [facility] Glomerular filtration rate ( GFR) estimation/1.73 sq m using serum, plasma, or whole bOrdered By: Carrie Garcia on 09-14-2024 GFR/1.73 sq M.predicted among non-blacks MDRD (S/P/Bld) [Vol rate/Area] 56 mL/min/{1.73_m2} Low >60 [facility] Comment on above: mL/min/1.73m2 CKD-EP I Creatinine Equation (2020) Hematocrit Auto (Bld) [Volum e fraction]Ordered By: Carrie Garcia on 09-14-2024 Hematocrit (Bld) [Volume fraction] 42.7 % 40-54 [facility] Hemoglobin measurementOrdere d By: Carrie Garcia on 09-14-2024 Hemoglobin (Bld) [Mass/Vol] 14.3 g/dL 13.0-16.5 [facility] Immature granulocytes/100 WB C Auto (Bld)Ordered By: Carrie Garcia on 09-14-2024 Immature granulocytes/100 WBC (Bld) 0.200 % 0.0-0.9 [facility] Comment on above: IG% - Immature Granu locytes (promyelocytes, myelocytes and metamyelocytes) > 1% indicates that a LEFT SHIFT is Present. MCV (mean corpuscular volume ) determinationOrdered By: Carrie Garcia on 09-14-2024 MCV (RBC) [Entitic vol] 99.3 fL High 80-94 [facility] Mean corpuscular hemoglobin (MCH) determinationOrdered By: Carrieberna Garcia on 09-14-2024 MCH (RBC) [Entitic mass] 33.3 pg High 27.0-32.0 [facility] Mean corpuscular hemoglobin concentration (MCHC) determinationOrdered By: Carrie Garcia on 09-14-2024 MCHC (RBC) [Mass/Vol] 33.5 g/dL 32-36 [facility] Mean platelet volume determi nationOrdered By: Carrie Garcia on 09-14-2024 Platelet mean volume (Bld) [Entitic vol] 10.6 fL 6.2-12.0 [facility] Monocyte percentageOrdered B y: Carrie Garcia on 09-14-2024 Monocytes/100 WBC (Bld) 8.1 % 0-10 [facility] Neutrophil percentageOrdered By: Carrieberna Garcia on 09-14-2024 Neutrophils/100 WBC (Bld) 60.7 % 47-70 [facility] Nucleated red blood cell per centageOrdered By: Carrie Garcia on 09-14-2024 Nucleated RBC/100 WBC (Bld) [Ratio] 0 % 0-5 [facility] Platelet countOrdered By: Ra juwan Garcia on 09-14-2024 Platelets (Bld) [#/Vol] 254 10*3/uL 150-450 [facility] Potassium measurement (mass/ volume)Ordered By: Carrie Garcia on 09-14-2024 Potassium (Unsp spec) [Mass/Vol] 4.2 mmol/L 3.3-5.1 [facility] RBC Auto (Bld) [#/Vol]Ordere d By: Carrie Garcia on 09-14-2024 RBC (Bld) [#/Vol] 4.30 10*6/uL Low 4.6-6.2 [facility] Serum creatinine measurement (mass/volume)Ordered By: Carrie Garcia on 09-14-2024 Creatinine [Mass/Vol] 1.30 mg/dL High 0.70-1.20 [facility] Serum glucose measurement (m ass/volume)Ordered By: Carrie Garcia on 09-14-2024 Glucose [Mass/Vol] 147 mg/dL High 70-99 [facility] Serum or plasma calcium vandana urement (mass/volume)Ordered By: Carrie Garcia on 09-14-2024 Calcium [Mass/Vol] 9.4 mg/dL 7.6-11.0 [facility] Serum or plasma urea nitroge n measurement (mass/volume)Ordered By: Carrie Garcia on 09-14-2024 Urea nitrogen [Mass/Vol] 25 mg/dL High 4-19 [facility] Sodium levelOrdered By: Luma Garcia on 09-14-2024 Sodium [Moles/Vol] 140 mmol/L 133-145 [facility] White blood cell (WBC) count Ordered By: Carrie Garcia on 09-14-2024 WBC (Bld) [#/Vol] 5.9 10*3/uL 4.4-11.0 [facility] Ankle Brachial Indexon 04-04 Ankle Brachial Index [facility] [address] [place] [address] Ankle Brachial Index 04/04/24 1050 MR#: [id number] Acct: [id number] Name: LIZZY BARAJAS Rep #: [id number] : 1945 78 From: Mango Huddleston MD [...] 04/04/24 1600 Date Mango Huddleston MD CC: HYDROELECTRIC PLANT MAINTAINER-C Carrie Garcia Date Dictated: 04/04/24 1050 Date Transcribed: 04/04/24 1600 Pbx Supervisor: Signed Normal [facility] Abdomen/Pelvis without Conto n 03-21-2024 Abdomen/Pelvis without Cont [facility] Imaging Services [address] [place] [address] Abdomen/Pelvis without Cont MR#: [id number] Acct: [id number] Name: LIZZY BARAJAS Rep #: [id number] : 1945 M [id number] From: Art mendez MD PCP: LISANDRO Crane Status: REG CLI Study: Abdomen/Pelvis without Cont Date of Exam: 03/07 07/29 Exam# [id number] Ordering Dr: Carrie Garcia [id number] STUDY: CT ABDOMEN AND PELVIS WITHOUT CONTRAST [...] at 15:32 EST , CC: LISANDRO Garcia Pbx Supervisor: Signed Normal [facility] CBC W/Diff, Automatedon 12-3 0-2023 Absolute Lymph 3.19 X10 3/uL Normal 0.83-4.51 [facility] Comment on above: Performed By: #### L 100.0100, L500.4050 #### [facility] [address] [place], [address] Absolute Neut 4.1 X10 3/uL Normal 2.0-7.7 [facility] Comment on above: Performed By: #### L 100.0100, L500.4050 #### [facility] [address] [place], [address] Basophils/100 WBC (Bld) 1.1 % High 0-1 [facility] Comment on above: Performed By: #### L 100.0100, L500.4050 #### [facility] [address] [place], [address] Eosinophils/100 WBC (Bld) 2.1 % Normal 0-5 [facility] Comment on above: Performed By: #### L 100.0100, L500.4050 #### [facility] [address] [place], [address] Erythrocyte distribution width (RBC) [Ratio] 12.6 % Normal 11.6-14.6 [facility] Comment on above: Performed By: #### L 100.0100, L500.4050 #### [facility] [address] [place], [address] Hematocrit (Bld) [Volume fraction] 45.3 % Normal 40-54 [facility] Comment on above: Performed By: #### L 100.0100, L500.4050 #### [facility] [address] [place], [address] Hemoglobin (Bld) [Mass/Vol] 14.5 g/dL Normal 13.0-16.5 [facility] Comment on above: Performed By: #### L 100.0100, L500.4050 #### [facility] [address] [place], [address] IG% 0.200 Normal 0.0-0.9 [facility] Comment on above: Result Comment: IG% - Immature Granulocytes (promyelocytes, myelocytes and metamyelocytes) > 1% indicates that a LEFT SHIFT is Present. Performed By: #### L 100.0100, L500.4050 #### [facility] [address] [place], [address] Lymphocytes/100 WBC (Bld) 39.6 % Normal 19-41 [facility] Comment on above: Performed By: #### L 100.0100, L500.4050 #### [facility] [address] [place], [address] MCH (RBC) [Entitic mass] 32.1 pg High 27.0-32.0 [facility] Comment on above: Performed By: #### L 100.0100, L500.4050 #### [facility] [address] [place], [address] MCHC (RBC) [Mass/Vol] 32.0 g/dL Normal 32-36 [facility] Comment on above: Performed By: #### L 100.0100, L500.4050 #### [facility] [address] [place], [address] MCV (RBC) [Entitic vol] 100.2 fL High 80-94 [facility] Comment on above: Performed By: #### L 100.0100, L500.4050 #### [facility] [address] [place], [address] Monocytes/100 WBC (Bld) 6.6 % Normal 0-10 [facility] Comment on above: Performed By: #### L 100.0100, L500.4050 #### [facility] [address] [place], [address] Neutrophils/100 WBC (Bld) 50.4 % Normal 47-70 [facility] Comment on above: Performed By: #### L 100.0100, L500.4050 #### [facility] [address] [place], [address] Nucleated RBC (Bld) [#/Vol] 0 10*3/uL Normal 0-5 [facility] Comment on above: Performed By: #### L 100.0100, L500.4050 #### [facility] [address] [place], [address] Platelet mean volume (Bld) [Entitic vol] 9.7 fL Normal 6.2-12.0 [facility] Comment on above: Performed By: #### L 100.0100, L500.4050 #### [facility] [address] [place], [address] Platelets (Bld) [#/Vol] 233 10*3/uL Normal 150-450 [facility] Comment on above: Performed By: #### L 100.0100, L500.4050 #### [facility] [address] [place], [address] RBC (Bld) [#/Vol] 4.52 10*6/uL Low 4.6-6.2 [facility] Comment on above: Performed By: #### L 100.0100, L500.4050 #### [facility] [address] [place], [address] RDW SD 47.2 fl High 35.1-43.9 [facility] Comment on above: Performed By: #### L 100.0100, L500.4050 #### [facility] [address] [place], [address] WBC (Bld) [#/Vol] 8.1 10*3/uL Normal 4.4-11.0 [facility] Comment on above: Performed By: #### L 100.0100, L500.4050 #### [facility] [address] [place], [address] Comprehensive Metabolic Prof [facility] 03-05-2024 Albumin [Mass/Vol] 3.8 g/dL Normal 3.2-5.0 [facility] Comment on above: Performed By: #### L 100.0100, L500.4050 #### [facility] [address] [place], [address] Albumin/Globulin [Mass ratio] 1.0 {ratio} Normal 0.9-2.4 [facility] Comment on above: Performed By: #### L 100.0100, L500.4050 #### [facility] [address] [place], [address] ALK P 132 U/L High 45-117 [facility] Comment on above: Performed By: #### L 100.0100, L500.4050 #### [facility] [address] [place], [address] ALT [Catalytic activity/Vol] 47 U/L Normal 16-61 [facility] Comment on above: Performed By: #### L 100.0100, L500.4050 #### [facility] [address] [place], [address] AST [Catalytic activity/Vol] 28 U/L Normal 15-37 [facility] Comment on above: Performed By: #### L 100.0100, L500.4050 #### [facility] [address] [place], [address] Bilirubin [Mass/Vol] 0.50 mg/dL Normal 0.20-1.00 [facility] Comment on above: Result Comment: For patients on eltrombopag therapy, use of Dimension Brogue TBIL is not recommended. Performed By: #### L 100.0100, L500.4050 #### [facility] [address] [place], [address] BUN/CRE 20.0 RATIO Normal 10-20 [facility] Comment on above: Performed By: #### L 100.0100, L500.4050 #### [facility] [address] [place], [address] CA,Total 9.0 mg/dL Normal 8.5-10.1 [facility] Comment on above: Performed By: #### L 100.0100, L500.4050 #### [facility] [address] [place], [address] Chloride [Moles/Vol] 106 mmol/L Normal 98-107 [facility] Comment on above: Performed By: #### L 100.0100, L500.4050 #### [facility] [address] [place], [address] CO2 [Moles/Vol] 25.0 mmol/L Normal 21.0-32.0 [facility] Comment on above: Performed By: #### L 100.0100, L500.4050 #### [facility] [address] [place], [address] Creatinine [Mass/Vol] 1.15 mg/dL Normal 0.70-1.30 [facility] Comment on above: Result Comment: The validity of the calculated GFR GFRAA in patients over 70 years has not been determined. Clinical correlation is essential. Performed By: #### L 100.0100, L500.4050 #### [facility] [address] [place], [address] EST GFR - AA 79 mL/min Normal >60 [facility] Comment on above: Result Comment: Afri can Pakistani GFR Calc Performed By: #### L 100.0100, L500.4050 #### [facility] [address] [place], [address] GAP 7 Normal 5-15 [facility] Comment on above: Performed By: #### L 100.0100, L500.4050 #### [facility] [address] [place], [address] GFR/1.73 sq M.predicted among non-blacks MDRD (S/P/Bld) [Vol rate/Area] 65 mL/min/{1.73_m2} Normal >60 [facility] Comment on above: Result Comment: Non- GFR Calc Performed By: #### L 100.0100, L500.4050 #### [facility] [address] [place], [address] Globulin (S) [Mass/Vol] 3.8 g/dL Normal 2.2-4.2 [facility] Comment on above: Performed By: #### L 100.0100, L500.4050 #### [facility] [address] [place], [address] Glucose [Mass/Vol] 112 mg/dL High 74-106 [facility] Comment on above: Result Comment: Fast ing Glucose result from 100 to 125 mg/dL suggests IMPAIRED HOMEOSTASIS per A.D.A. criteria. Performed By: #### L 100.0100, L500.4050 #### [facility] [address] [place], [address] Potassium [Moles/Vol] 4.6 mmol/L Normal 3.5-5.1 [facility] Comment on above: Performed By: #### L 100.0100, L500.4050 #### [facility] [address] [place], [address] Sodium [Moles/Vol] 138 mmol/L Normal 136-145 [facility] Comment on above: Performed By: #### L 100.0100, L500.4050 #### [facility] [address] [place], [address] T PROT 7.6 g/dL Normal 6.4-8.2 [facility] Comment on above: Performed By: #### L 100.0100, L500.4050 #### [facility] [address] [place], [address] Urea nitrogen [Mass/Vol] 23 mg/dL High 7-18 [facility] Comment on above: Performed By: #### L 100.0100, L500.4050 #### [facility] [address] [place], [address] Lung Screeningon 02-14-[address] Lung Screening [facility] Imaging Services [address] [place] [address] Lung Screening MR#: [id number] Acct: [id number] Name: LIZZY BARAJAS Rep #: [id number] : 1945 M 78 From: Art mendez MD PCP: LISANDRO Crane Status: REG CLI Study: Low Dose CT Lung Screening Date of Exam: 02/13 Exam# [id number] Ordering Dr: Azalea Isaac NP HYDROELECTRIC PLANT MAINTAINER -C [id number] STUDY: LOW DOSE CT LUNG CANCER SCREENING [...] 13:12 EST Reading Location ID and State: [facility] / [place] , Service support , CC: LISANDRO Garcia; LISANDRO Isaac Pbx Supervisor: Signed Normal [facility] Oncology Visit Reporton 02-04 Oncology Visit Report [facility] [address] [place], [place] [address] OFFICE VISIT Date of Service: 02/14/24 1200 MR#: [id number] Acct: [id number] Name: LIZZY BARAJAS Rep #: [id number] : 1945 From: Azalea Evangelista Age/Sex: 78/M Location: [facility] [place] Status: Signed HPI [...] Exam Const General: well developed Orientation: alert HENMT Head: normocephalic and atraumatic Neck Neck: trachea [...] mcg P (more content not included)... Normal [facility] Knee 4 or More Viewson 12-22 Knee 4 or More Views [facility] Imaging Services [address] [place] [address] Knee 4 or More Views MR#: [id number] Acct: [id number] Name: LIZZY BARAJAS Rep #: [id number] : 1945 M 78 From: Rosalina gates MD PCP: LISANDRO Crane Status: REG CLI Study: Knee 4 or More Views Date of Exam: 12/23/23 Exam# [id number] Ordering Dr: Carrie Garcia [id number] HISTORY: RULE OUT FRACTURE. TECHNIQUE: XR Knee [...] at 15:33 EDT , CC: LISANDRO Garcia Pbx Supervisor: Signed Normal [facility] Basophil percentageOrdered B y: Dr. Bryant on 03-15-2022 Cholesterol [Mass/Vol] 163 mg/dL <200 [facility] Comment on above: <200 mg/dL Desirable 200-240 mg/dL Borderline >240 mg/dL High Risk Glucose [Mass/Vol] 114 mg/dL 74-106 [facility] Comment on above: Fasting Glucose resu lt from 100 to 125 mg/dL suggests IMPAIRED HOMEOSTASIS per A.D.A. criteria. Triglyceride [Mass/Vol] 158 mg/dL <199 [facility] Comment on above: The drugs N-Acetylcy steine and Metamizole may falsely depress this assay.Serum Triglycerides Reference Interval Normal <150 mg/dL Borderline high 150 - 199 mg/dL High 200 - 499 mg/dL Very High > or = 500 mg/dL Serum or plasma cholesterol in HDL measurement (mass/volume)Ordered By: Dr. Bryant on 03-15-2022 Cholesterol in HDL [Mass/Vol] 45 mg/dL >40 [facility] Comment on above: The drugs N-Acetylcy steine and Metamizole may falsely depress this assay. Reference Range HDL <40 mg/dL Low HDL Cholesterol HDL >or= 60 mg/dL High HDL Cholesterol Serum or plasma cholesterol in VLDL measurement (mass/volume)Ordered By: Dr. Bryant on 03-15-2022 Cholesterol in VLDL [Mass/Vol] 32 mg/dL 5-40 [facility] Serum or plasma low density lipoprotein (LDL) cholesterol measurement (mass/volume)Ordered By: Dr. Bryant on 03-15-2022 Cholesterol in LDL [Mass/Vol] 86 mg/dL 0-130 [facility] Whole blood hemoglobin A1c/t otal hemoglobin ratio (mass fraction)Ordered By: Dr. Bryant on 03-15-2022 HbA1c (Bld) [Mass fraction] 5.8 % 3.8-5.6 [facility] Comment on above: Normal < 5.7 % Predi abetic 5.7 - 6.4 % Diabetic >or= 6.5 % Please note range changes. CNOVon 01-06-2022 CNOV Office Visit (GENSWS ) LIZZY BARAJAS ([id number]) 1945 M Date Time Provider Department 01/06/22 11:15 AM TYLER BAIRES During your visit today, we recorded the following information about you: Temperature Pulse Blood pressure Weight 97.9 degrees 91/minute 126/78 108 kg Height 1.854 m Tyler Baires MD 01/06/2022 4:40 PM Signed FOLLOW UP VISIT NAME: Lizzy Barajas CLINIC NO.: [id number] DATE OF SERVICE: 01/06/2022 : 1945 REFERRING [...] 81 MG (more content not included)... Normal [facility] CT ABD/PEL WO IVCONon 2021 CT ABD/PEL WO IVCON * * *Final Report* * * DATE OF EXAM: Dec 30 2021 11:36AM [facility] 0531 - CT ABD/PEL WO IVCON / [...] seen. No acute abnormality. Lower thorax: Unremarkable. Computer Programmer Analyst (topogram) images: No additional findings. IMPRESSION: No acute process is seen within the abdomen or pelvis. Colonic diverticulosis without evidence of diverticulitis. Pbx Supervisor: BIB Transcribe Date/Time: Dec 30 2021 1:30P Dictated by : KAMRYN VENCES MD This examination was interpreted and the report reviewed and electronically signed by: KAMRYN VENCES MD on Dec 30 2021 1:34PM EST [id number] Normal [facility] CNOVon 12-24-2021 CNOV Office Visit (GENSWS ) LIZZY BARAJAS ([id number]) 1945 M Date Time Provider Department 12/24/21 11:30 AM TYLER BAIRES GENSWS During your visit today, we recorded the following information about you: Temperature Pulse Blood pressure Weight 98.2 degrees 90/minute 130/60 108 kg Height 1.854 m Edda RochaGANESH 12/24/2021 11:39 AM Signed REVIEW OF SYSTEMS: [...] me today at the request of Dr. iZna Ferrell MD for my opinion and advice [...] 40 mg (more content not included)... Normal [facility] Absolute lymphocyte counton 05-20-2021 Lymphocytes Auto (Unsp spec) [#/Vol] 3.04 10*3/uL 0.83-4.51 [facility] Work Phone: Basophil percentageon 2021 Basophils/100 WBC (Bld) 0.5 % 0-1 [facility] Work Phone: Bilirubin [Mass/Vol] 0.40 mg/dL 0.20-1.00 [facility] Work Phone: Comment on above: For patients on eltr ombopag therapy, use of Dimension Brogue TBIL is not recommended. Chloride [Moles/Vol] 105 mmol/L 98-107 [facility] Work Phone: Eosinophils/100 WBC (Bld) 0.7 % 0-5 [facility] Work Phone: Glucose [Mass/Vol] 94 mg/dL 74-106 [facility] Work Phone: Neutrophils (Bld) [#/Vol] 5.9 10*3/uL 2.0-7.7 [facility] Work Phone: Neutrophils/100 WBC (Bld) 59.8 % 47-70 [facility] Work Phone: Potassium [Moles/Vol] 3.7 mmol/L 3.5-5.1 [facility] Work Phone: Protein [Mass/Vol] 7.0 g/dL 6.4-8.2 [facility] Work Phone: Sodium [Moles/Vol] 140 mmol/L 136-145 [facility] Work Phone: WBC (Bld) [#/Vol] 9.9 10*3/uL 4.4-11.0 [facility] Work Phone: Blood erythrocytes count (nu mber/volume)on 05-20-2021 RBC (Bld) [#/Vol] 4.12 10*6/uL 4.6-6.2 [facility] Work Phone: Blood hemoglobin measurement (mass/volume)on 05-20-2021 Hemoglobin (Bld) [Mass/Vol] 14.4 g/dL 13.0-16.5 [facility] Work Phone: Blood lymphocytes/100 leukoc yteson 05-20-2021 Lymphocytes/100 WBC (Bld) 30.8 % 19-41 [facility] Work Phone: Blood monocytes/100 leukocyt eson 05-20-2021 Monocytes/100 WBC (Bld) 7.1 % 0-10 [facility] Work Phone: Blood platelet mean volumeon 05-20-2021 Platelet mean volume (Bld) [Entitic vol] 10.4 fL 6.2-12.0 [facility] Work Phone: Determination of erythrocyte mean corpuscular volume (MCV)on 05-20-2021 MCV (RBC) [Entitic vol] 101.2 fL 80-94 [facility] Work Phone: Erythrocyte sedimentation ra nohelia 05-20-2021 ESR (Bld) [Velocity] 9 mm/h 0-20 [facility] Work Phone: Hematocrit Auto (Bld) [Volum e fraction]on 05-20-2021 Hematocrit (Bld) [Volume fraction] 41.7 % 40-54 [facility] Work Phone: [phone] Laboratory - Chemistry and C hemistry - challengeon 05-20-2021 ALP [Catalytic activity/Vol] 91 U/L 45-117 [facility] Work Phone: ALT [Catalytic activity/Vol] 68 U/L 16-61 [facility] Work Phone: CK [Catalytic activity/Vol] 32 U/L 39-308 [facility] Work Phone: CO2 [Moles/Vol] 29.0 mmol/L 21.0-32.0 [facility] Work Phone: Free T4 [Mass/Vol] 1.18 ng/dL 0.76-1.46 [facility] Work Phone: Globulin (S) [Mass/Vol] 3.3 g/dL 2.2-4.2 [facility] Work Phone: Urea nitrogen/Creatinine [Mass ratio] 19.8 mg/mg 10-20 [facility] Work Phone: Laboratory - Hematology and Cell countson 05-20-2021 Erythrocyte distribution width (RBC) [Entitic vol] 47.6 fL 35.1-43.9 [facility] Work Phone: [phone] Erythrocyte distribution width (RBC) [Ratio] 12.8 % 11.6-14.6 [facility] Work Phone: [phone] Immature granulocytes/100 WBC (Bld) 1.100 % 0.0-0.9 [facility] Work Phone: [phone] Comment on above: IG% - Immature Granu locytes (promyelocytes, myelocytes and metamyelocytes) > 1% indicates that a LEFT SHIFT is Present. MCH (RBC) [Entitic mass] 35.0 pg 27.0-32.0 [facility] Work Phone: [phone] Nucleated RBC/100 WBC (Bld) [Ratio] 0 % 0-5 [facility] Work Phone: [phone] MCHC Auto (RBC) [Mass/Vol]on 05-20-2021 MCHC (RBC) [Mass/Vol] 34.5 g/dL 32-36 [facility] Work Phone: No Panel Informationon 05-20 Estimated GFR (MDRD) Amer 88 mL/min >60 [facility] Work Phone: Comment on above: GFR Calc Estimated GFR (MDRD) Non-Af Amer 72 mL/min >60 [facility] Work Phone: [phone] Comment on above: Non- GFR Calc Thyroid Stimulating Hormone (TSH) 1.08 uIU/mL 0.358-3.74 [facility] Work Phone: Platelets bldon 05-20-2021 Platelets (Bld) [#/Vol] 297 10*3/uL 150-450 [facility] Work Phone: [phone] Serum cyclic citrullinated p eptide IgG antibody assay (units/volume)on 05-20-2021 Cyclic citrullinated peptide IgG Qn 10 units [facility] Work Phone: Comment on above: Negative <20 Weak po sitive 20 - 39 Moderate positive 40 - 59 Strong positive >59Performed at: [email or web address] [address] [id number] Director: Saeed Browning MD, Phone: [phone] Serum nuclear antibody titer by immunofluorescenceon 05-20-2021 Nuclear Ab IF (S) [Titer] Negative [facility] Work Phone: Comment on above: Negative <1:80 Borde rline 1:80 Positive >1:80ICAP nomenclature: AC-0For more information about Hep-2 cell patterns useANApatterns.org, the official website for theInternational Consensus on Antinuclear Antibody (SAMEER)Patterns (ICAP).Performed at: [facility] [address] [id number] Director: Justin Isidro PhD, Phone: [phone] Serum or plasma C reactive p rotein measurement (mass/volume)on 05-20-2021 CRP [Mass/Vol] mg/L 0.0-3.0 [facility] Work Phone: Comment on above: C-Reactive Protein ( CRP) provides useful information for thediagnosis, therapy and monitoring of inflammatory processesand associated diseases. For the evaluation of Relative Riskfor Cardiovascular Disease, a High Sensitivity CRP (HSCRP)should be ordered. Serum or plasma albumin vandana urement (mass/volume)on 05-20-2021 Albumin [Mass/Vol] 3.7 g/dL 3.2-5.0 [facility] Work Phone: [phone] Serum or plasma albumin/glob ulin mass ratioon 05-20-2021 Albumin/Globulin [Mass ratio] 1.1 {ratio} 0.9-2.4 [facility] Work Phone: [phone] Serum or plasma calcium vandana urement (mass/volume)on 05-20-2021 Calcium [Mass/Vol] 8.6 mg/dL 8.5-10.1 [facility] Work Phone: [phone] Serum or plasma creatinine m easurement (mass/volume)on 05-20-2021 Creatinine [Mass/Vol] 1.06 mg/dL 0.70-1.30 [facility] Work Phone: Comment on above: The validity of the calculated GFR & GFRAA in patients over 70 years has not been determined. Clinical correlation is essential. Serum or plasma urea nitroge n measurement (mass/volume)on 05-20-2021 Urea nitrogen [Mass/Vol] 21 mg/dL 7-18 [facility] Work Phone: Serum rheumatoid factor dete ctionon 05-20-2021 Rheumatoid factor Ql (S) < 10.0 IU/mL <15 [facility] Work Phone: Thin prep Papanicolaou smear with manual screeningon 05-20-2021 Thin prep Papanicolaou smear with manual screening 32 U/L 15-37 [facility] Work Phone: Thin prep Papanicolaou smear with manual screening 6 5-15 [facility] Work Phone: Basophil percentageon 2021 Creatinine [Mass/Vol] 0.8 mg/dL 0.70-1.30 [facility] Work Phone: No Panel Informationon 04-22 Bedside Estimated GFR (eGFR) > 60.0000 mL/min >60 [facility] Work Phone: Vital Signs Date Time Vital Sign Value Performing Clinician Faci literica 02-08-2023 12:050 Body height 182.[address] Zina Ferrell [facility] 02-08-2023 12:29-0500 Body mass index (BMI) [Ratio] 31.1 kg/m2 Dr. Hardin [facility] 02-08-2023 12:29-0500 Body temperature 98 [degF] Dr. Zina Ferrell [facility] 02-08-2023 12:29-0500 Body weight 103.[address] [facility] 02-08-2023 12:29-0500 Diastolic blood pressure 74 mm[Hg] Dr. Hardin [facility] 02-08-2023 12:29-0500 Heart rate 83 /min Dr. Zina Ferrell [facility] 02-08-2023 12:29-0500 Respiratory rate 18 /min Dr. Zina Ferrell [facility] 02-08-2023 12:29-0500 SaO2% (BldA) [Mass fraction] 96 % [facility]-08-[facility]23 12:29-0500 Systolic blood pressure 126 mm[Hg] Dr. Zina Ferrell [facility] 01-06-2022 11:13-0400 Body height 185.4 cm Tyler Baires MD Work Phone: [facility] 01-06-2022 11:13-0400 Body temperature 97.9 [degF] Tyler Baires MD Work Phone: [facility] 01-06-2022 11:13-0400 Body weight 107.96 kg Tyler Baires MD Work Phone: [facility] 01-06-2022 11:13-0400 Diastolic blood pressure 78 mm[Hg] Tyler Baires MD Work Phone: [facility] 01-06-2022 11:13-0400 Heart rate 91 /min Tyler Baires MD Work Phone: [facility] 01-06-2022 11:13-0400 SaO2% (BldA) [Mass fraction] 98 % Tyler Baires MD Work Phone: [facility] 01-06-2022 11:13-0400 Systolic blood pressure 126 mm[Hg] Tyler Baires MD Work Phone: [facility] 12-24-2021 11:36-0400 Body height 185.4 cm Tyler Baires MD Work Phone: [facility] 12-24-2021 11:36-0400 Body temperature 98.2 [degF] Tyler Baires MD Work Phone: [facility] 12-24-2021 11:36-0400 Body weight 107.96 kg Tyler Baires MD Work Phone: [facility] 12-24-2021 11:36-0400 Diastolic blood pressure 60 mm[Hg] Tyler Baires MD Work Phone: [facility] 12-24-2021 11:36-0400 Heart rate 90 /min Tyler Baires MD Work Phone: [facility] 12-24-2021 11:36-0400 SaO2% (BldA) [Mass fraction] 96 % Tyler Baires MD Work Phone: [facility] 12-24-2021 11:36-0400 Systolic blood pressure 130 mm[Hg] Tyler Baires MD Work Phone: [facility] 10-13-2021 11:59-0400 Body height 182.[address] Zina Ferrell Work Phone: [facility] Work Phone: 10-13-2021 11:59-0400 Body mass index (BMI) [Ratio] 32.1 kg/m2 Dr. Zina Ferrell Work Phone: [facility] Work Phone: 10-13-2021 11:59-0400 Body temperature 98.7 [degF] Dr. Zina Ferrell Work Phone: [facility] Work Phone: 10-13-2021 11:59-0400 Body weight 107.[address] Zina Ferrell Work Phone: [facility] Work Phone: 10-13-2021 11:59-0400 Diastolic blood pressure 77 mm[Hg] Dr. Zina Ferrell Work Phone: [facility] Work Phone: 10-13-2021 11:59-0400 Heart rate 77 /min Dr. Zina Ferrell Work Phone: [facility] Work Phone: 10-13-2021 11:59-0400 Respiratory rate 15 /min Dr. Zina Ferrell Work Phone: [facility] Work Phone: 10-13-2021 11:59-0400 SaO2% (BldA) [Mass fraction] 98 % Dr. Zina Ferrell Work Phone: [facility] Work Phone: 10-13-2021 11:59-0400 Systolic blood pressure 128 mm[Hg] Dr. Zina Ferrell Work Phone: [facility] Work Phone: Encounters Encounter Date Encounter Type Care Provider Facility Start: 10-11-2024 End: 10-11-2024 ambulatory Carrie Garcia HYDROELECTRIC PLANT MAINTAINER-C Work Phone: -[facility] [place] Start: 10-11-2024 End: 10-11-2024 Patient encounter procedure Renéecontreras StoneSean -[facility] [place] Work Phone: Start: 10-11-2024 End: 10-11-[address] [facility] Facility:[facility] Start: 09-19-2024 End: 09-19-2024 ambulatory Carrie Garcia HYDROELECTRIC PLANT MAINTAINER-C Work Phone: -Ultrasound [facility] Start: 09-19-2024 End: 09-19-2024 Patient encounter procedure Carrie Garcia HYDROELECTRIC PLANT MAINTAINER-C -Ultrasound [facility] Work Phone: Start: 09-19-2024 End: 09-19-2024 ambulatory Carrie Fausto Facility:[facility] Start: 09-14-2024 End: 09-14-2024 ambulatory Carrie Garcia HYDROELECTRIC PLANT MAINTAINER-C Work Phone: -Laboratory [facility] F[facility] Start: 09-14-2024 End: 09-14-2024 Patient encounter procedure Carrie Garcia HYDROELECTRIC PLANT MAINTAINER-C -Laboratory Perry Famly [facility] Start: 09-14-2024 End: 09-14-[address] [facility] Facility:[facility] Start: 04-04-2024 ambulatory Mango Huddleston Facility:[facility] Start: 04-04-2024 End: 04-04-2024 ambulatory Carrie Fausto Facility:[facility] Start: 03-21-2024 End: 03-21-2024 [facility] Start: 03-05-2024 End: 03-05-2024 ambulatory [place] Fa[facility] Facility:[facility] Start: 02-14-2024 End: 02-14-2024 ambulatory Azalea Marlin HYDROELECTRIC PLANT MAINTAINER Facility:[facility] Start: 02-14-2024 End: 02-14-2024 ambulatory Azalea Marlin HYDROELECTRIC PLANT MAINTAINER Facility:[facility] Start: 12-23-2023 End: 12-23-2023 ambulatory Carrie Fausto Facility:[facility] Start: 02-08-2023 End: 02-08-[address] Zina Ferrell [facility] Work Phone: Start: 02-08-2023 End: 02-08-[address] Zina Ferrell [facility] Work Phone: Start: 03-15-2022 End: 03-15-2022 ambulatory [facility] Work Phone: Start: 03-15-2022 End: 03-15-2022 Patient encounter procedure [facility] Start: 01-06-2022 End: 01-06-2022 ambulatory TYLER BAIRES Facility:[facility] Start: 01-06-2022 End: 01-06-2022 Patient encounter procedure Tyler Baires MD Work Phone: General Surgery Comment on above: Periumbilical pain ( Primary Dx) Start: 12-30-2021 End: 12-30-2021 ambulatory TYLER BAIRES Facility:[facility] Start: 12-30-2021 End: 12-30-2021 ambulatory ZINA FERRELL Facility:[facility] Start: 12-30-2021 End: 12-30-2021 [facility] Work Phone: Cat Scan Comment on above: Intra-abdominal and pelvic swelling, mass and lump, unspecified site [R19.00] Start: 12-24-2021 End: 12-24-2021 ambulatory TYLER BAIRES Facility:[facility] Start: 12-24-2021 End: 12-24-2021 Patient encounter procedure Tyler Baires MD Work Phone: General Surgery Comment on above: Intra-abdominal and pelvic swelling, mass and lump, unspecified site (Primary Dx) Start: 10-30-2021 End: 10-30-[address] Zina Ferrell Work Phone: [facility] Work Phone: Start: 10-30-2021 End: 10-30-[address] Zina Ferrell Work Phone: [facility] Start: 10-13-2021 End: 10-13-[address] Zina Ferrell Work Phone: [facility] Start: 06-04-2021 End: 06-04-2021 [facility] Start: 05-20-2021 End: 05-20-2021 [facility] Start: 04-22-2021 End: 04-22-2021 Patient encounter procedure [facility]-Cat Scan, [facility] Procedures Date Procedure Procedure Detail Performing Clinician Start: 10-11-2024 Complete x-ray serie s of lumbar spine with bending views Carrie Garcia HYDROELECTRIC PLANT MAINTAINER-C Work Phone: Start: 09-19-2024 Complete ultrasound of kidneys and bladder Carrie Garcia HYDROELECTRIC PLANT MAINTAINER-C Work Phone: Start: 02-08-2023 CT of chest [...] f neck with contrast Start: 08-30-2019 Colonoscopy Tyler montoya MD Work Phone: Plan of Treatment Date Care Activity Detail Author Start: 08-29-2024 Colonoscopy COLONOSCOPY [facility] Start: 08-29-2024 COLORECTAL CANCER SCREENING COLORECTAL CANCER SCREENING [facility] Start: 01-06-2023 BP CONTROLLED (<130/80) BP CONTROLLE D (<130/80) [facility] Start: 11-05-2022 Covid-19 Vaccine () Covid-19 Vaccine () [facility] Start: 11-05-2022 Influenza vaccination Influenza Vacc ine (#1) [facility] Start: 03-07-2022 Advance Directive Discussion Advance Directive Discussion [facility] Start: 03-07-2022 [facility] Start: 03-07-2021 ADVANCE DIRECTIVE DISCUSSION ADVANCE DIRECTIVE DISCUSSION [facility] Start: 03-07-2021 [facility] Start: 01-06-2019 DIABETES SCREEN DIABETES SCREEN [facility] Start: 01-06-2019 Diabetes Screening Diabetes Screenin g [facility] Start: 07-27-2016 LIPID SCREEN LIPID SCREEN [facility] Start: 07-27-2012 Pneumococcal Vaccine : 65+ (2 - PCV) Pneumococcal Vaccine: 65+ (2 - PCV) [facility] Start: 07-27-2012 PNEUMOCOCCAL: 65+ (2 - PCV) PNEUMOCOCCAL: 65+ (2 - PCV) [facility] Start: 11-24-2007 SHINGRIX VACCINE (2 of 3) SHINGRIX VACCINE (2 of 3) [facility] Start: 1996 Influenza vaccination LUNG CANCER SC REENING [facility] Start: 1991 COLOGUARD (FIT-DNA) COLOGUARD (FIT-D NA) [facility] Start: [address] COLONOGRAPHY [facility] Start: 1991 FECAL OCCULT BLOOD FECAL OCCULT BLOO D [facility] Start: [address] [facility] Start: 1965 Urine microalbumin profile [facility] Start: 1964 ANNUAL PCP TEAM SAP BUSINESS OBJECTS CONSULTANT TOSHIA DISEASE VISIT ANNUAL PCP TEAM CHRONIC DISEASE VISIT [facility] Start: 1964 BP CONTROLLED (<130/80) BP CONTROLLE D (<130/80) [facility] Start: 1964 HEPATITIS C SCREENING HEPATITIS C VIRGILIO GUTIERRES [facility] End: 01-23-2023 Ct abdomen & pelvis w/o contrast material CT ABD/PEL WO IVCON Radiology Routine Intra-abdominal and pelvic swelling, mass and lump, unspecified site 1 Occurrences starting 12/24/2021 until 01/23/2023 [facility] Work Phone: Comment on above: 1 Occurrences starti ng 12/24/2021 until 01/23/2023 [facility] Immunizations Immunization Date Immunization Notes Care Provider Fa cility 11-30-2021 influenza virus vacc ine, unspecified formulation Ct (I-[facility]) Work Phone: [facility] 11-27-2011 influenza virus vacc ine, unspecified formulation Tyler Baires MD Work Phone: [facility] 07-28-2011 pneumococcal polysaccharide vaccine, 23 valent Tyler Baires MD Work Phone: [facility] Work Phone: 12-08-2007 influenza virus vacc ine, unspecified formulation Tyler Baires MD Work Phone: [facility] 09-29-2007 zoster vaccine, live Tyler Baires MD Work Phone: [facility] Work Phone: 01-14-2007 influenza virus vacc ine, unspecified formulation Tyler Baires MD Work Phone: [facility] 01-17-2006 influenza virus vacc ine, unspecified formulation Tyler Baires MD Work Phone: [facility] 01-14-2005 influenza virus vacc ine, unspecified formulation Tyler Baires MD Work Phone: [facility] Work Phone: Payers Date Payer Category Payer Self-pay [id number] 2011 Medicare [id number] 2011 Medicare MEDICARE MEDICAR E A AND B [id number] 2011-Present [phone] [address] [address] [place] [address] Medicare [id number] 2006 [employer] ( and others) [id number] 2006 Unknown FOR LIFE [id number] 2006-Present [phone] [address] [place] [address] Indemnity [id number] Unknown [id number] Unknown [id number] Unknown [id number] Unknown [id number] Unknown [id number] Unknown [id number] Unknown [id number] Unknown [id number] Unknown [id number] Unknown [id number] Social History Date Type Detail Facility Start: 09-02-2020 End: 02-08-2023 Tobacco smoking status MIIS Unknown if ever smoked [facility] Start: 1945 Sex Assigned At Male W [facility] Start: 12-24-2021 End: 02-14-2024 Tobacco smoking status NHIS Smokes tobacco daily [facility] History of tobacco use Cigarette Smoker C [facility] Start: 02-10-2020 End: 12-24-2021 Cigarettes smoked current (pack per day) - Reported 0.5 [facility] Start: 12-24-2021 Tobacco use and exposure Smokeless tobacco non-user [facility] Start: 12-24-2021 End: 01-06-2022 Alcohol intake Current drinker of alcohol (finding) [facility] Start: 12-24-2021 Tobacco Comment less than .5 ppd [facility] Start: 1945 Sex Assigned At Not on file [facility] Start: 12-14-2021 End: 01-06-2022 Exposure to SARS-CoV-2 (event) Not sure [facility] Start: 02-10-2020 End: 12-24-2021 Tobacco use panel [facility] National Score (1-10 0), lower number is lower risk Not on file [facility] Medical Equipment Procedure Code Equipment Code Equipment Origin al Text Equipment Identifier Dates Patch Ventralex St Sepra Sorbaflex 3.2in Large Hoh Polypropylene - [id number] Start: 01-20-2016 Comment on above: Description: Ventral ex ST hernia patch Clinical Notes 07-25-2014 to 10-12-2024 Tyler Baires MD - 01/06/2022 12:57 PM Khushboo King RT(Keyshawn) - 12/30/2021 11:20 AM Robles Baires MD - 12/24/2021 7:28 PM Reanna Rocha LPN - 12/24/2021 11:38 AM EDT Note Date & Type Note Facility 10-12-2024 Radiology Diagnostic study note [facility] Imaging Services [address] [place], [place] [address] (417) L/S Spine w Bend Min 6 Vw MR#: [id number] Acct: [id number] Name: LIZZY BARAJAS Rep #: [id number] : 1945 M [id number] From: Salinas Brink MD PCP: LISANDRO Crane Status: REG CLI Study:L/S Spine w Bend Min 6 Vw Date of Exam: 10/11/24 Exam# [id number] Ordering Dr: Renée Estrada PROCEDURE: L/S SPINE W BEND MIN 6 VW 10/11/2024 REASON FOR EXAM: LUMBAR DDD TECHNIQUE: L/S SPINE W BEND MIN 6 VW COMPARISON: None. FINDINGS: Mild degenerative levoscoliosis apex at L3. There are diffuse spondylotic changes. Findings are demonstrated to by diffuse disc space narrowing, osteophyte formation and degenerative endplate sclerosis. There is diffuse facet joint arthropathy with secondary bilateral neural foramina narrowing. No fracture or dislocation is seen. No aggressive lytic or blastic bony lesion is noted. RAD/L/S Spine w Bend Min 6 Vw IMPRESSION: Diffuse spondylosis. No evidence of instability on flexion/extension images. Reading Location: [place] [address] CC: HYDROELECTRIC PLANT MAINTAINER-C Carrie Garcia; Renée Estrada ~ Pbx Supervisor: Signed [facility] 09-19-2024 Radiology Diagnostic study note [facility] Imaging Services [address] [place] [address] Kidney and Bladder MR#: [id number] Acct: [id number] Name: LIZZY BARAJAS Rep #: [id number] : 1945 M [id number] From: Paxton Manning MD PCP: LISANDRO Crane Status: REG CLI Study:Kidney and Bladder Date of Exam: 0 09/19/24 Exam# [id number] Ordering Dr: Ra juwan Garcia PROCEDURE: KIDNEY AND BLADDER 09/19/2024 REASON FOR EXAM: LOW BACK PAIN TECHNIQUE: KIDNEY AND BLADDER COMPARISON: None FINDINGS: Kidneys: Normal renal sizes, parenchymal thicknesses, and echotextures. [place]: No evidence of hydronephrosis. Cysts or Masses: [...] tiny nonobstructive left intrarenal calculi. Reading Location: [place] [address] CC: LISANDRO Garcia ~ Pbx Supervisor: Signed [facility] 01-06-2022 Note HNO ID: [id number] Author: Tyler Baires MD Service: ? Author Type: Physician Type: Progress Notes Filed: 01/06/2022 4:40 PM Note Text: FOLLOW UP VISIT NAME: Lizzy Forde Barajas [facility] NO.: [id number] DATE OF SERVICE: 01/06/2022 : 1945 REFERRING [...] me in 1 month. Tyler Baires MD [facility] 01-06-2022 History of Present illness Narrative FOLLOW UP VISIT NAME: Lizzy Barajas [facility] NO.: [id number] DATE OF SERVICE: 01/06/2022 : 1945 REFERRING [...] Tyler Baires MD documented in this encounter [facility] 12-30-2021 Note HNO ID: [id number] Author: RT Morro(Keyshawn) Service: ? Author Type: Base Filler Operator Type: Progress Notes Filed: 12/30/2021 4:02 [...] RT Kailash(Keyshawn) December 30, 2021 4:02 PM [facility] 12-30-2021 History of Present illness Narrative Radiology [...] 2021 4:02 PM documented in this encounter [facility] 12-24-2021 Note HNO ID: [id number] Author: Tyler Baires MD Service: ? Author [...] AND L5 degenerative spine disease Pure hypercholesterolemia 2005 [...] entered by the nurse and reviewed by sc Nursing Notes: Edda Rocha LPN 12/24/2021 11:39 [...] Gastrointestinal: The patie (more content not included)... [facility] 12-24-2021 History of Present illness Narrative HISTORY [...] entered by the nurse and reviewed by sc Nursing Notes: Edda Rocha LPN 12/24/2021 11:39 [...] Tyler Baires MD documented in this encounter [facility] 12-24-2021 Nurse Note REVIEW OF SYSTEMS: [...] Edda Rocha LPN documented in this encounter [facility] 07-25-2014 History of Past i llness [...] of this encounter (statuses as of 12/24/2021) [facility]2015 History of Past illness Narrative* Problem [...] of this encounter (statuses as of 01/06/2022) [facility] History of Past illness Narrative* Problem [...] of this encounter (statuses as of 01/08/2023) [facility] History of Past illness Narrative* Problem [...] of this encounter (statuses as of 01/08/2023) [facility] noteNo assessment information [facility] Work Phone: Evaluation note* Diagnosis Onset Date Resolution Status [id number] acute Tobacco use disorder, continuous acute [facility] Work Phone: Evaluation note* Diagnosis Intra-abdominal and pelvic swelling, mass and lump, unspecified site- Primary documented in this encounter [facility] note* Diagnosis Periumbilical pain- Primary Abdominal pain, periumbilic [facility] Intra-abdominal and pelvic swelling, mass and lump, unspecified site documented in this encounter [facility] for referral (narrative)No reason for referral information availableWTr[facility] Work Phone: Chief Complaint and Reason for Visit Chief Complaint RIGHT LYMPHADENOPATH Y OF UNCERTAIN CAUSE Chief Complaint Lung cancer screenin g TOBACCO USE Reason for Visit [id number] Tobacco use disorder, continuous Chief Complaint Lung cancer screenin g SCREENING Reason for Visit [id number] Tobacco use disorder, continuous Chief Complaint Admit Date LOW BACK PAIN September 19, 2024 11:2 3am Chief Complaint Admit Date LOW BACK PAIN September 19, 2024 11:2 3am XRAY LUMBOSACRAL SPINE October 11, 2024 11:02am Family History No Family History Records Found [...] Yes September 18, 2019 8:00pm Power of Marketing Copywriter Yes September 17 0 8:00pm Documents on File Type Date Recorded Patient Cost Accounting Manager Expl anation Advance Directive(s) 06/16/2011 Advance Directive(s) 03/13/2008 7:59 AM Documents on File Type Date Recorded Patient Cost Accounting Manager Expl anation Advance Directive(s) 06/16/2011 Advance Directive(s) 03/13/2008 7:59 AM Advance Directive Response Recorded Date/ Time Advance Directives Yes September 30 5:18pm Living Will Yes September 18, 2019 7:00pm Power of Marketing Copywriter Yes September 17 0 7:00pm Advance Directive Response Recorded Date/ Time Advance Directives Yes September 30 6:18pm Reason for Referral Specialty Diagnoses / Procedures Referred By Ozzie johnson Referred To Contact CT IMAGING Diagnoses Intra-abdominal and pelvic swelling, mass and lump, unspecified site Procedures CT ABD/PEL WO IVCON CT ABD & PELVIS W/O CONTRAST Tyler Baires MD [address] [place] [address] Ct Imaging Referral ID Status Reason Start Date Expiration Date Visits Requested Visits Authorized [id number] Authorized Auto-Generat ed Referral 01/23/2023 1 1 Specialty Diagnoses / Procedures Referred By Ozzie johnson Referred To Contact CT IMAGING Diagnoses Intra-abdominal and pelvic swelling, mass and lump, unspecified site Procedures CT ABD/PEL WO IVCON CT ABD & PELVIS W/O CONTRAST Tyler Baires MD [address] [place] [address] [place] [address] Referral ID Status Reason Start Date Expiration Date V isits Requested Visits Authorized [id number] Closed Auto-Generate d Referral 12/24/2021 01/23/2023 1 [...] or prosecute any alcohol or drug abuse patient.[facility] the event this information is protected by the Federal Confidentiality of Alcohol and Drug Abuse Patient Records regulations: The Federal rules restrict any use of the information to criminally investigate or prosecute any alcohol or drug abuse patient.[facility] the event this information is protected by the Federal Confidentiality of Alcohol and Drug Abuse Patient Records regulations: The Federal rules restrict any use of the information to criminally investigate or prosecute any alcohol or drug abuse patient.[facility] the event this information is protected by the Federal Confidentiality of Alcohol and Drug Abuse Patient Records regulations: The Federal rules restrict any use of the information to criminally investigate or prosecute any alcohol or drug abuse patient.[facility] Reason for Visit (unrecogniz ed section [...] Tyler Baires MD [address] [place] [address] [place] [address] Referral ID Status Reason Start Date Expiration Date V isits Requested Visits Authorized [id number] Closed Auto-Generate d Referral 12/24/2021 01/23/2023 1 1 Care Teams (unrecognized sec tion and content) Digital Community Manager Relationship Specialty Start Date End Date Zina Ferrell MD PCP - General Family Medicine 07/19/14 Digital Community Manager Relationship Specialty Start Date End Date Zina Ferrell MD PCP - General Family Medicine 07/19/14 Team Status: Active Member Role Status Dates Dr. Zina Ferrell MD Family Provider Active Dr. Zina Ferrell MD Primary Care Provider Active Team Status: Inactive Member Role Status Dates Dr. Zina Ferrell MD Primary Care Provider Active Dr. Maritza Bryant MD Attending Provider, Referring Erin kennedy Active Digital Community Manager Relationship Specialty Start Date End Date Zina Ferrell MD PCP - General Family Medicine 07/19/14 Digital Community Manager Relationship Specialty Start Date End Date Zina Ferrell MD PCP - General Family Medicine 07/19/14 Team Status: Active Member Role Status Dates Dr. Zina Ferrell MD Family Provider Active LISANDRO Crane Primary Care Provider Active Team Status: Inactive Member Role Status Dates Dr. Zina Ferrell MD Referring Provider Active Azalea Isaac HYDROELECTRIC PLANT MAINTAINER, HYDROELECTRIC PLANT MAINTAINER-C Attending Provider Active LISANDRO Crane Primary Care Provider Active Team Status: Inactive Member Role Status Dates Azalea Isaac HYDROELECTRIC PLANT MAINTAINER HYDROELECTRIC PLANT MAINTAINER-C Attending Provider, Referring Provider Active LISANDRO Crane Primary Care Provider Active Team Status: Active Member Role/Relationship Status Dates LISANDRO Crane Primary Care Provider Active Team Status: Inactive Member Role/Relationship Status Dates LISANDRO Crane Primary Care Provider Active Start: September 14, 2024 End: September 14, 2024 LISANDRO Crane Attending Provider Active St art: September 14, 2024 End: September 14, 2024 Team Status: Active Member Role/Relationship Status Dates LISANDRO Crane Primary Care Provider Active Start: September 19, 2024 LISANDRO Crane Attending Provider Active St art: September 19, 2024 LISANDRO Crane Referring Provider Active St art: September 19, 2024 Team Status: Inactive Member Role/Relationship Status Dates LISANDRO Crane Primary Care Provider Active Start: September 19, 2024 End: September 19, 2024 LISANDRO Crane Attending Provider Active St art: September 19, 2024 End: September 19, 2024 LSIANDRO Crane Referring Provider Active St art: September 19, 2024 End: September 19, 2024 Team Status: Inactive Member Role/Relationship Status Dates LISANDRO Crane Primary Care Provider Active Start: October 11, 2024 End: October 11, 2024 NP. Renée Estrada Attending Provider Active Star t: October 11, 2024 End: October 11, 2024 NP. Renée Estrada Referring Provider Active Star t: October 11, 2024 End: October 11, 2024 (unrecognized sect ion and content) No Status Records FoundNo Status Records Found INFORMATION SOURCE (unrecogn ized section and content) DATE CREATED AUTHOR 01/12/2022 [facility] DATE CREATED AUTHOR AUTHOR'S LEXI GALLAGHER 10/18/2024 [facility] FOR RECORDS PERTAINING TO PATIENTS WHO ARE [...] BE BASED ON THE PRIMARY CLINICAL RECORDS. [employer] provides no warranty or guarantee of the accuracy or completeness of information in this document.
[2025-03-06 11:59] LABS: Hematocrit 46.2 % (40-54); Hemoglobin 15.4 g/dL (13.0-16.5); Immature Granulocytes Count 0.020 X10^3/uL (0.0-0.0); Mean Corp Hgb Conc 33.3 g/dL (32-36); Mean Corpuscular Volume 98.7 fL (80-94); Mean Platelet Vol. 9.9 fl (6.2-12.0); NRBC Flagged by Analyzer 0 % (0-5); Platelet Count 234 K/mm3 (150-450); RBC Distribution Width CV 12.3 % (11.6-14.6); RBC Distribution Width SD 44.8 fl (35.1-43.9); Red Blood Count 4.68 M/mm3 (4.6-6.2); White Blood Count 7.7 K/mm3 (4.4-11.0)
[2025-03-06 12:32] LABS: AST(SGOT) 35 U/L (<=37); Alanine Aminotransfer ALT/SGPT 35 U/L (<=46); Albumin, Serum 4.4 g/dL (3.4-4.8); Alkaline Phosphatase 125 U/L (40-129); Anion Gap 10 (7-18); BUN 21 mg/dL (4-19); BUN/Creat Ratio 18.5 RATIO (10-20); Calcium,Total 9.4 mg/dL (7.6-11.0); Carbon Dioxide 26.5 mmol/L (20.0-29.0); Chloride 101 mmol/L (96-106); Cholesterol 168 mg/dL (<=200); Globulin 3.1 g/dL (2.2-4.2); Glucose 114 mg/dL (70-99); Low Density Lipoprotein Calc. 92 mg/dL; PSA,Total - Annual Screen 0.55 ng/mL (0.02-4.00); Potassium 4.8 mmol/L (3.5-5.1); Triglycerides 105 mg/dL; Very Low Density Lipoprotein 21 mg/dL (5-40); cholesterol:hdl ratio screen 2.97
== END | disposition home or self-care (01) ==
LOC: MTLAB 11:03
PROVIDERS: PCP Nurse Practitioner Family; Referring Provider Nurse Practitioner Family; Visit Provider Nurse Practitioner Family
DX: Z12.5 Encounter for screening for malignant neoplasm of prostate (principal); I10 Essential (primary) hypertension; E78.5 Hyperlipidemia, unspecified
CPT/HCPCS: 36415; 80053; 80061; 84153; 85025; G0103